=== PATIENT | female | born 1965 | race Caucasian/White ===

== ENCOUNTER 2021-08-28 15:30 | Emergency (ER) | payer MEDICAID ==
[~2021-08-28] VITALS: Ht 167.6 cm; Wt 104.5 kg
[~2021-08-28 15:30] MED LIST: METH4TAB PO; PENI500T2 PO
[2021-08-28] MEDS ORDERED: ondansetron/PF 4mg/2ml inj IV ONE (15:45)
[2021-08-28] MEDS ORDERED: normal saline 1000ML IV soln IVB ONE (15:45)
[2021-08-28] MEDS ORDERED: ALBUTEROL INHALER 1 PUFF/90 MCG INHALER IH PRN (15:45)
[2021-08-28 15:50] VITALS: BP 117/96
[2021-08-28 16:23] LABS: BASOPHILS % (AUTO) 0.4 % (0-1); EOSINOPHILS % (AUTO) 0 % (0-6); HEMATOCRIT 39.4 % (35.0-45.0); HEMOGLOBIN 13.5 g/dl (12.0-16.0); LYMPHOCYTES # (AUTO) 0.5 X10'3 (1.1-4.8); LYMPHOCYTES % (AUTO) 16.9 % (21-51); MEAN CORPUSCULAR HEMOGLOBIN 30.3 PG (27.0-31.0); MEAN CORPUSCULAR HGB CONC 34.3 g/dL (33.0-36.5); MEAN CORPUSCULAR VOLUME 88.2 FL (78-98); MEAN PLATELET VOLUME 8.4 FL (7.4-10.4); MONOCYTES # (AUTO) 0.1 X10'3 (0-0.9); MONOCYTES % (AUTO) 2.4 % (2-12); NEUTROPHILS # (AUTO) 2.6 X10'3 (1.8-7.7); NEUTROPHILS % (AUTO) 80.3 % (42-75); PLATELET COUNT 163 X10'3 (140-440); RED BLOOD COUNT 4.46 X10'6 (4.20-5.60); RED CELL DISTRIBUTION WIDTH 13.5 % (11.5-14.5); WHITE BLOOD COUNT 3.3 X10'3 (4.5-11.0)
[2021-08-28] MEDS ORDERED: dexamethasone sod phosphate 10mg/ml inj IV STA (16:26)
[2021-08-28 16:33] LABS: D-DIMER 1.46 MG/L FEU (0-0.50)
[2021-08-28 16:38] LABS: ALANINE AMINOTRANSFERASE 32 U/L (12-78); ALBUMIN 3.3 G/DL (3.4-5.0); ALBUMIN/GLOBULIN RATIO 0.8 (1.1-1.5); ALKALINE PHOSPHATASE 94 IU/L (46-116); ANION GAP 15 (8-16); ASPARTATE AMINO TRANSFERASE 106 U/L (10-37); BILIRUBIN,TOTAL 0.2 MG/DL (0.1-1.0); BLOOD UREA NITROGEN 32 MG/DL (7-18); BUN/CREATININE RATIO 23.9 (6.6-38.0); C-REACTIVE PROTEIN 9.75 MG/DL (0.0-0.5); CALCIUM 8.4 MG/DL (8.5-10.1); CHLORIDE 99 MMOL/L (99-107); CREATININE 1.34 MG/DL (0.40-0.90); GLUCOSE 119 MG/DL (70-104); POTASSIUM 3.4 MMOL/L (3.5-5.1); SODIUM 133 MMOL/L (135-145); TOTAL CARBON DIOXIDE 19.2 MMOL/L (24-32); TOTAL PROTEIN 7.5 G/DL (6.4-8.2); eGFR 41 ML/MIN
[2021-08-28] MEDS ORDERED: ketorolac trometh. 30mg/ml inj. IV ONE (16:45)
[2021-08-28 17:10] LABS: CLARITY,URINE SLIGHTLY CLOUDY (Clear); COLOR,URINE YELLOW (Yellow); GLUCOSE, URINE NEGATIVE (Neg); KETONES,URINE TRACE mg/dl (Neg); NITRITES, URINE NEGATIVE (Neg); OCCULT BLOOD,URINE MODERATE (Neg); PROTEIN,URINE 100 mg/dl (Neg); UA COLLECTION TYPE CLN CATCH MIDSTREAM
[2021-08-28 17:11] LABS: LEUKOCYTE ESTERASE ,URINE NEGATIVE (Neg); UROBILINOGEN,URINE 0.2 E.U/dL (0.2-1.0)
[2021-08-28 17:14] LABS: BACTERIA,URINE FEW /HPF (Neg); SQUAMOUS EPITHELIAL CELL,UR FEW /LPF (FEW)
[2021-08-28 17:15] LABS: AMORPHOUS URATES 1+; MUCUS STRANDS FEW /LPF (Neg)
[2021-08-28] MEDS ORDERED: ALBU6.7H9 INH ×2 (17:59)
[2021-08-28] MEDS ORDERED: DEXA6TAB6 PO ×2 (17:59)
[2021-08-28] MEDS ORDERED: AZIT500T PO ×2 (17:59)
[2021-08-28] MEDS ORDERED: BUDE180A INH ×2 (17:59)
--- NOTE | 2021-08-28 20:00 | NUR ---
pt discharged before nursing assessments done
== END 2021-08-28 20:00 | disposition home or self-care (01) ==
LOC: ER 15:32
DX: U07.1 COVID-19 (principal); J12.82 Pneumonia due to coronavirus disease 2019; J96.01 Acute respiratory failure with hypoxia; G89.29 Other chronic pain; Z79.2 Long term (current) use of antibiotics; Z79.899 Other long term (current) drug therapy; Z88.1 Allergy status to other antibiotic agents; Z88.8 Allergy status to other drugs, medicaments and biological substances
CPT/HCPCS: 36415; 71045; 80053; 81001; 84145; 85025; 85379; 86140; 87088; 87635; 96361; 96374; 96375; 99284; C9803; J1100; J1885; J2405; J7030

== ENCOUNTER 2021-08-30 11:32 | Inpatient (IN) | payer MEDICAID ==
[~2021-08-30] VITALS: Ht 167.6 cm; Wt 105.0 kg
[~2021-08-30 11:32] MED LIST changes: +ALBU6.7H9 INH; +AZIT500T PO; +BUDE180A INH; +DEXA6TAB6 PO
--- NOTE | 2021-08-30 12:13 | NUR ---
02 SAT 83-84% ON 2L/MIN NC. INCREASED 02 TO 4L/MIN NC. 02 SAT 85-86%. PT GOING TO ROOM 8
[2021-08-30 13:05] LABS: BASOPHILS % (AUTO) 0.1 % (0-1); EOSINOPHILS % (AUTO) 0 % (0-6); HEMOGLOBIN 13.7 g/dl (12.0-16.0); LYMPHOCYTES # (AUTO) 0.6 X10'3 (1.1-4.8); LYMPHOCYTES % (AUTO) 12.3 % (21-51); MEAN CORPUSCULAR HEMOGLOBIN 30.2 PG (27.0-31.0); MEAN CORPUSCULAR HGB CONC 34.4 g/dL (33.0-36.5); MEAN CORPUSCULAR VOLUME 87.8 FL (78-98); MEAN PLATELET VOLUME 8.2 FL (7.4-10.4); MONOCYTES # (AUTO) 0.3 X10'3 (0-0.9); NEUTROPHILS % (AUTO) 81.6 % (42-75); PLATELET COUNT 191 X10'3 (140-440); RED BLOOD COUNT 4.55 X10'6 (4.20-5.60); WHITE BLOOD COUNT 4.9 X10'3 (4.5-11.0)
[2021-08-30 13:15] LABS: D-DIMER 2.19 MG/L FEU (0-0.50)
[2021-08-30 13:21] LABS: ALANINE AMINOTRANSFERASE 247 U/L (12-78); ALBUMIN 3.3 G/DL (3.4-5.0); ALBUMIN/GLOBULIN RATIO 0.8 (1.1-1.5); ALKALINE PHOSPHATASE 117 IU/L (46-116); ANION GAP 14 (8-16); ASPARTATE AMINO TRANSFERASE 293 U/L (10-37); BILIRUBIN,TOTAL 0.2 MG/DL (0.1-1.0); BLOOD UREA NITROGEN 18 MG/DL (7-18); BUN/CREATININE RATIO 23.4 (6.6-38.0); CALCIUM 8.9 MG/DL (8.5-10.1); CHLORIDE 105 MMOL/L (99-107); CREATININE 0.77 MG/DL (0.40-0.90); GLUCOSE 138 MG/DL (70-104); POTASSIUM 3.9 MMOL/L (3.5-5.1); SODIUM 140 MMOL/L (135-145); TOTAL CARBON DIOXIDE 21.5 MMOL/L (24-32); TOTAL PROTEIN 7.4 G/DL (6.4-8.2); eGFR 78 ML/MIN
[2021-08-30] MEDS ORDERED: heparin 25,000 UNIT/250ml bag 250 ML IV SCH (13:25)
[2021-08-30] MEDS ORDERED: heparin 10,000 units/1 ML INJ IV PRN (13:25)
[2021-08-30] MEDS ORDERED: heparin 10,000 units/1 ML INJ IV ONE ×2 (13:25→13:35)
[2021-08-30] MEDS ORDERED: iohexol 350MG/ML 100ml bottle IV ONE (13:32)
[2021-08-30] MEDS ORDERED: DOCU-337 PO (13:59)
[2021-08-30] MEDS ORDERED: METH-797 PO (13:59)
[2021-08-30] MEDS ORDERED: OMEP-50 PO (13:59)
[2021-08-30] MEDS ORDERED: FEXO-62 PO (13:59)
[2021-08-30] MEDS ORDERED: IBUP-1985 PO (13:59)
[2021-08-30] MEDS ORDERED: acetaminophen 325mg tablet PO ONE (14:05)
[2021-08-30] MEDS ORDERED: dexamethasone sod phosphate 10mg/ml inj IV STA (14:23)
[2021-08-30] MEDS ORDERED: magnesium Cl slow-release 64mg tablet PO PRN (14:25)
[2021-08-30] MEDS ORDERED: magnesium hydroxide 30ml (MOM) UD suspension PO PRN (14:25)
[2021-08-30] MEDS ORDERED: potassium Cl 40MEQ/1/2NS 520ml 520 ML IV PRN ×2 (14:25)
[2021-08-30] MEDS ORDERED: CefTRIAXone/D5W-Rocephin 1gm 50 ML IV ONE (14:25)
[2021-08-30] MEDS ORDERED: azithromycin/NS 500mg/250ml 250 ML IV ONE (14:25)
[2021-08-30] MEDS ORDERED: metoclopramide 5 mg/ml inj IV PRN (14:25)
[2021-08-30] MEDS ORDERED: acetaminophen 325mg tablet PO PRN ×2 (14:25)
[2021-08-30] MEDS ORDERED: ondansetron/PF 4mg/2ml inj IV PRN (14:25)
[2021-08-30] MEDS ORDERED: mag hydrox/Alum hydrox/simeth 30ml oral suspension PO PRN (14:25)
[2021-08-30] MEDS ORDERED: ALBUTEROL INHALER 1 PUFF/90 MCG INHALER IH PRN (14:25)
[2021-08-30] MEDS ORDERED: potassium Cl 20 mEq SR tablet PO PRN ×2 (14:25)
[2021-08-30] MEDS ORDERED: magnesium 4gm in 100ml NS 100 ML IV PRN (14:25)
[2021-08-30] MEDS ORDERED: bisacodyl 10mg suppository rectal RC PRN (14:25)
[2021-08-30] MEDS ORDERED: magnesium 2GM in 50ml NS 50 ML IV PRN (14:25)
[2021-08-30 15:21] LABS: C-REACTIVE PROTEIN 1.21 MG/DL (0.0-0.5); LACTATE DEHYDROGENASE 1717 U/L (81-234)
[2021-08-30] MEDS ORDERED: REMDESIVIR INJ 200 MG in normal saline 100ml IV soln 60 ML IV ONE (15:45)
[2021-08-30] MEDS: normal saline 1000ml 1,000 ML IV SCH (15:47)
[2021-08-30] MEDS ORDERED: rocuronium 10mg/ml inj IV ONE (16:00)
--- NOTE | 2021-08-30 16:34 | NUR ---
I have received report from JANINE KONG IN ER and had the opportunity to ask questions. WILL AWAIT PTS ARRIVAL TO THE FLOOR.
--- NOTE | 2021-08-30 16:41 | NUR ---
SENT MESSAGE TO RESPIRATORY... 2305G...PT COMING UP FROM ER, ON 15L...CAN I GET A SALTER FOR THE ROOM PLEASE AND THANK YOU
--- NOTE | 2021-08-30 17:50 | NUR ---
PT ARRIVED FROM ER IN STABLE CONDITION
[2021-08-30 18:00] VITALS: BP 125/68
[2021-08-30] MEDS: guaiFENesin/DM 10ml UD oral syrup PO PRN (18:00)
--- NOTE | 2021-08-30 18:19 | NUR ---
IV FLUIDS NOT INFUSING DUE TO IV BEING IN R AC, PT KEEPS BENDING ARM. WILL HAVE NOC RN PLACE NEW IV AND RESTART ABX AND FLUID.
--- NOTE | 2021-08-30 18:57 | NUR ---
Problems reprioritized. Patient report given, questions answered & plan of care reviewed with JANINE BEARD.
--- NOTE | 2021-08-30 18:59 | NUR ---
Patient in room ORTHO 4012. I have received report from JANINE Skelton and had the opportunity to ask questions and assume patient care.
[2021-08-30] MEDS ORDERED: docusate sod 100mg capsule PO SCH (20:00)
[2021-08-30] MEDS: K and/or MAG REPLACEMENT MC SCH (20:00)
[2021-08-30 20:55] VITALS: BP 120/59
[2021-08-30] MEDS ORDERED: temazepam 15mg capsule PO PRN (21:00)
--- NOTE | 2021-08-30 21:00 | NUR ---
Patient was found on the floor by her nurse, Lily MEHTA. I called Dr. Smallwood to inform him of the fall and that her oxygen saturation had dropped to 56% without oxygen. I applied the 15liters high flow and then added a 15liter NRB mask because her oxygen saturation was hanging out around 75% and it slowly went up to 91% with both the HF and NRB mask on. I set the bed alarm on her bed and reinforced that she needed to call for help to the bsc and not to get out of bed on her own. There was no injury noted to her body and no open sores or abrasions, she was found on her knees by the bedside commode. She verbalized that [place] [facility] she just became weak and fell onto her knees. I asked the doctor for Toradol per her request for pain but he declined since she is on steroids and it would increase risk of gi bleed.
--- NOTE | 2021-08-30 21:00 | NUR ---
Patient was found on her knees on the floor next to the bedside commode, called charge nurse and with her assistance patient was transferred back to bed. Skin intact at this time, able to move all extremities without difficulty. Bed alarm in place now, bed in lowest position, side rails in place. Instructed patient to use call light for assistance. Dr Smallwood was made aware by charge nurse. Will continue to monitor, call light within reach.
--- NOTE | 2021-08-30 21:05 | NUR ---
ALSO HAS 15LITERS OF OXYGEN THROUGH NRB MASK ON Addendum: 08/30/21 at 2155 by Laya Rollins RN Amended: Links added.
[2021-08-30] MEDS: docusate sod 100mg capsule PO SCH (21:22)
[2021-08-30] MEDS: famotidine 20mg tablet PO SCH (21:23)
[2021-08-30] MEDS: cyclobenzaprine 10mg tablet PO SCH (21:23)
[2021-08-30] MEDS: enoxaparin 40mg/0.4ml syringe SUBCUT SCH (21:24)
[2021-08-30] MEDS: dexamethasone inj 6 MG in normal saline 50ml IV soln 50 ML IV SCH (21:24)
[2021-08-30] MEDS: HYDROmorphone inj. 0.5 MG/0.5 ML DISP.SYRIN IV PRN (21:25)
[2021-08-30 22:00] VITALS: BP 120/59
[2021-08-31] VITALS (7 sets, daily range): BP systolic 103–124; BP diastolic 51–73
[2021-08-31] MEDS: normal saline 1000ml 1,000 ML IV SCH (00:25)
--- NOTE | 2021-08-31 01:49 | NUR ---
Dr. Smallwood was called and notified that we are unable to get the last troponin that was ordered on patient, 3 nurses tried getting the blood without any success. He said to just have it done with am labs.
[2021-08-31] MEDS: guaiFENesin/DM 10ml UD oral syrup PO PRN ×5 (01:50→23:49)
--- NOTE | 2021-08-31 04:17 | NUR ---
Assisted patient in prone position to help her breathing, she was having low oxygen saturations with any movements and dropping down to the high 70's. Now she is 90-91% in prone position and on 15liters high flow and 15 liters nrb mask. I had her use the bedpan because she decompensates to much with activity and not safe to use the bsc at this time.
--- NOTE | 2021-08-31 06:35 | NUR ---
Problems reprioritized. Patient report given, questions answered & plan of care reviewed with JANINE Pérez.
[2021-08-31] MEDS ORDERED: REMDESIVIR INJ 100 MG in normal saline 100ml IV soln 80 ML IV SCH (08:00)
[2021-08-31] MEDS ORDERED: azithromycin/NS 500mg/250ml 250 ML IV SCH (08:00)
[2021-08-31] MEDS ORDERED: CefTRIAXone/D5W-Rocephin 1gm 50 ML IV SCH (08:00)
[2021-08-31] MEDS: K and/or MAG REPLACEMENT MC SCH ×2 (08:00→19:31)
[2021-08-31] MEDS: cyclobenzaprine 10mg tablet PO SCH ×3 (08:16→19:37)
[2021-08-31] MEDS: dexamethasone inj 6 MG in normal saline 50ml IV soln 50 ML IV SCH (08:16)
[2021-08-31] MEDS: pantoprazole 40mg Tablet.DR PO SCH (08:17)
[2021-08-31] MEDS: loratadine 10mg tablet PO SCH (08:17)
[2021-08-31] MEDS: famotidine 20mg tablet PO SCH ×2 (08:17→19:37)
[2021-08-31] MEDS: docusate sod 100mg capsule PO SCH ×2 (08:17→19:37)
[2021-08-31] MEDS: enoxaparin 40mg/0.4ml syringe SUBCUT SCH (08:18)
[2021-08-31 08:40] LABS: ALANINE AMINOTRANSFERASE 173 U/L (12-78); ALBUMIN 2.9 G/DL (3.4-5.0); ALBUMIN/GLOBULIN RATIO 0.8 (1.1-1.5); ALKALINE PHOSPHATASE 113 IU/L (46-116); ANION GAP 12 (8-16); ASPARTATE AMINO TRANSFERASE 152 U/L (10-37); BILIRUBIN,TOTAL 0.2 MG/DL (0.1-1.0); BLOOD UREA NITROGEN 14 MG/DL (7-18); BUN/CREATININE RATIO 17.9 (6.6-38.0); CALCIUM 8.3 MG/DL (8.5-10.1); CHLORIDE 108 MMOL/L (99-107); CREATININE 0.78 MG/DL (0.40-0.90); GLUCOSE 134 MG/DL (70-104); POTASSIUM 3.8 MMOL/L (3.5-5.1); SODIUM 141 MMOL/L (135-145); TOTAL CARBON DIOXIDE 21.3 MMOL/L (24-32); TOTAL PROTEIN 6.5 G/DL (6.4-8.2); eGFR 76 ML/MIN
[2021-08-31 08:42] LABS: BASOPHILS % (AUTO) 0.1 % (0-1); EOSINOPHILS % (AUTO) 0 % (0-6); HEMATOCRIT 37.4 % (35.0-45.0); HEMOGLOBIN 12.8 g/dl (12.0-16.0); LYMPHOCYTES # (AUTO) 0.5 X10'3 (1.1-4.8); LYMPHOCYTES % (AUTO) 9.4 % (21-51); MEAN CORPUSCULAR HEMOGLOBIN 30.4 PG (27.0-31.0); MEAN CORPUSCULAR HGB CONC 34.2 g/dL (33.0-36.5); MEAN CORPUSCULAR VOLUME 88.7 FL (78-98); MEAN PLATELET VOLUME 8.5 FL (7.4-10.4); MONOCYTES # (AUTO) 0.3 X10'3 (0-0.9); MONOCYTES % (AUTO) 6.3 % (2-12); NEUTROPHILS % (AUTO) 84.2 % (42-75); PLATELET COUNT 176 X10'3 (140-440); RED BLOOD COUNT 4.22 X10'6 (4.20-5.60); RED CELL DISTRIBUTION WIDTH 14.4 % (11.5-14.5); WHITE BLOOD COUNT 4.8 X10'3 (4.5-11.0)
[2021-08-31 08:56] LABS: C-REACTIVE PROTEIN 0.33 MG/DL (0.0-0.5); LACTATE DEHYDROGENASE 1369 U/L (81-234); MAGNESIUM 2.1 MG/DL (1.5-2.4); TROPONIN I 0.59 NG/ML (0.0-0.05)
[2021-08-31 12:33] LABS: D-DIMER 1.66 MG/L FEU (0-0.50); PARTIAL THROMBOPLASTIN TIME 26 SECONDS (22-32)
[2021-08-31] MEDS ORDERED: REMDESIVIR INJ 200 MG in normal saline 100ml IV soln 60 ML IV ONE (13:10)
[2021-08-31] MEDS: benzonatate 100mg capsule PO PRN ×2 (14:55→22:18)
--- NOTE | 2021-08-31 18:00 | NUR ---
also on 15 liters NRB mask Addendum: 08/31/21 at 1931 by Laya Rollins RN Amended: Links added.
[2021-08-31] MEDS: enoxaparin 60mg/0.6ml syringe SUBCUT SCH (19:36)
[2021-08-31] MEDS: HYDROcodone/acetaminophen 7.5MG/325MG per 15ml UD CUP PO PRN (19:37)
[2021-08-31] MEDS: lactobacillus rhamnosus 10,000 MMU CELLS/CAPSULE PO SCH (19:37)
[2021-09-01 02:00] VITALS: BP 102/69
[2021-09-01] MEDS: benzonatate 100mg capsule PO PRN ×3 (04:59→22:24)
[2021-09-01] MEDS: guaiFENesin/DM 10ml UD oral syrup PO PRN ×3 (04:59→18:46)
--- NOTE | 2021-09-01 06:24 | NUR ---
Patient in room ORTHO 4012. I have received report from JANINE Stone and had the opportunity to ask questions and assume patient care.
[2021-09-01 06:40] VITALS: BP 134/67
--- NOTE | 2021-09-01 06:41 | NUR ---
Patient in room ORTHO 4012. I have received report from Iva MEHTA and had the opportunity to ask questions and assume patient care.
[2021-09-01] MEDS: dexamethasone inj 6 MG in normal saline 50ml IV soln 50 ML IV SCH (07:05)
[2021-09-01] MEDS: cyclobenzaprine 10mg tablet PO SCH ×3 (07:05→19:49)
[2021-09-01] MEDS: REMDESIVIR INJ 100 MG in normal saline 100ml IV soln 80 ML IV SCH (07:05)
[2021-09-01] MEDS: CefTRIAXone 2gm/D5W 50ml BAG 50 ML IV SCH (07:05)
[2021-09-01] MEDS: enoxaparin 60mg/0.6ml syringe SUBCUT SCH ×2 (07:05→19:50)
[2021-09-01] MEDS: famotidine 20mg tablet PO SCH ×2 (07:05→19:50)
[2021-09-01] MEDS: loratadine 10mg tablet PO SCH (07:05)
[2021-09-01] MEDS: pantoprazole 40mg Tablet.DR PO SCH (07:05)
[2021-09-01] MEDS: lactobacillus rhamnosus 10,000 MMU CELLS/CAPSULE PO SCH ×2 (07:06→19:50)
[2021-09-01] MEDS: docusate sod 100mg capsule PO SCH ×2 (07:06→19:46)
[2021-09-01] MEDS: K and/or MAG REPLACEMENT MC SCH ×2 (08:00→19:45)
[2021-09-01 08:49] LABS: BASOPHILS % (AUTO) 0.1 % (0-1); EOSINOPHILS % (AUTO) 0 % (0-6); HEMATOCRIT 38.9 % (35.0-45.0); HEMOGLOBIN 13.4 g/dl (12.0-16.0); LYMPHOCYTES # (AUTO) 0.7 X10'3 (1.1-4.8); LYMPHOCYTES % (AUTO) 12.1 % (21-51); MEAN CORPUSCULAR HEMOGLOBIN 30.3 PG (27.0-31.0); MEAN CORPUSCULAR HGB CONC 34.4 g/dL (33.0-36.5); MEAN CORPUSCULAR VOLUME 88.1 FL (78-98); MEAN PLATELET VOLUME 7.9 FL (7.4-10.4); MONOCYTES # (AUTO) 0.5 X10'3 (0-0.9); MONOCYTES % (AUTO) 9.5 % (2-12); NEUTROPHILS # (AUTO) 4.3 X10'3 (1.8-7.7); NEUTROPHILS % (AUTO) 78.3 % (42-75); PLATELET COUNT 184 X10'3 (140-440); RED BLOOD COUNT 4.42 X10'6 (4.20-5.60); RED CELL DISTRIBUTION WIDTH 14.3 % (11.5-14.5); WHITE BLOOD COUNT 5.4 X10'3 (4.5-11.0)
[2021-09-01 09:06] LABS: D-DIMER 1.73 MG/L FEU (0-0.50); PARTIAL THROMBOPLASTIN TIME 25 SECONDS (22-32)
[2021-09-01 09:10] LABS: ALANINE AMINOTRANSFERASE 119 U/L (12-78); ALBUMIN 2.9 G/DL (3.4-5.0); ALBUMIN/GLOBULIN RATIO 0.8 (1.1-1.5); ALKALINE PHOSPHATASE 122 IU/L (46-116); ANION GAP 13 (8-16); ASPARTATE AMINO TRANSFERASE 85 U/L (10-37); BILIRUBIN,TOTAL 0.4 MG/DL (0.1-1.0); BLOOD UREA NITROGEN 11 MG/DL (7-18); BUN/CREATININE RATIO 14.7 (6.6-38.0); C-REACTIVE PROTEIN 0.06 MG/DL (0.0-0.5); CALCIUM 8.6 MG/DL (8.5-10.1); CHLORIDE 109 MMOL/L (99-107); CREATININE 0.75 MG/DL (0.40-0.90); GLUCOSE 114 MG/DL (70-104); MAGNESIUM 2.3 MG/DL (1.5-2.4); POTASSIUM 3.7 MMOL/L (3.5-5.1); SODIUM 144 MMOL/L (135-145); TOTAL CARBON DIOXIDE 22.5 MMOL/L (24-32); TOTAL PROTEIN 6.6 G/DL (6.4-8.2); eGFR 80 ML/MIN
[2021-09-01 09:14] LABS: LACTATE DEHYDROGENASE 1374 U/L (81-234)
--- NOTE | 2021-09-01 09:36 | NUR ---
Educated patient on importance of proning this morning. While doing AM med pass patient was assisted to the bedside commode and then into prone position.
[2021-09-01 11:33] VITALS: BP 114/63
[2021-09-01] MEDS: HYDROcodone/acetaminophen 7.5MG/325MG per 15ml UD CUP PO PRN ×2 (12:04→19:50)
[2021-09-01 15:03] VITALS: BP 139/76
--- NOTE | 2021-09-01 17:36 | NUR ---
PAGER ID: [phone] MESSAGE: [id number] Avni. Just FYI preliminary sputum culture is showing yeast, rare gram negative rods and rare gram positive cocci in pairs. [place] [id number]
[2021-09-01 18:00] VITALS: BP 126/65
--- NOTE | 2021-09-01 18:03 | NUR ---
Problems reprioritized. Patient report given, questions answered & plan of care reviewed with Iva MEHTA.
--- NOTE | 2021-09-01 18:15 | NUR ---
Patient in room ORTHO 4012. I have received report from JANINE Stone and had the opportunity to ask questions and assume patient care.
[2021-09-01 22:00] VITALS: BP 131/70
[2021-09-02] MEDS: guaiFENesin/DM 10ml UD oral syrup PO PRN ×5 (00:14→20:45)
[2021-09-02 02:00] VITALS: BP 130/59
[2021-09-02] MEDS: HYDROmorphone inj. 0.5 MG/0.5 ML DISP.SYRIN IV PRN ×2 (03:05→09:54)
[2021-09-02 06:00] VITALS: BP 113/68
--- NOTE | 2021-09-02 06:33 | NUR ---
Problems reprioritized. Patient report given, questions answered & plan of care reviewed with JANINE Ricks.
--- NOTE | 2021-09-02 06:34 | NUR ---
Patient in room ORTHO 4012B. I have received report from JANINE ARAGON and had the opportunity to ask questions and assume patient care.
[2021-09-02] MEDS: docusate sod 100mg capsule PO SCH ×2 (07:50→20:00)
[2021-09-02] MEDS: cyclobenzaprine 10mg tablet PO SCH ×3 (07:50→20:20)
[2021-09-02] MEDS: lactobacillus rhamnosus 10,000 MMU CELLS/CAPSULE PO SCH ×2 (07:50→20:20)
[2021-09-02] MEDS: loratadine 10mg tablet PO SCH (07:50)
[2021-09-02] MEDS: pantoprazole 40mg Tablet.DR PO SCH (07:50)
[2021-09-02] MEDS: dexamethasone inj 6 MG in normal saline 50ml IV soln 50 ML IV SCH (07:50)
[2021-09-02] MEDS: famotidine 20mg tablet PO SCH ×2 (07:50→20:19)
[2021-09-02] MEDS: enoxaparin 60mg/0.6ml syringe SUBCUT SCH (07:51)
[2021-09-02] MEDS: K and/or MAG REPLACEMENT MC SCH ×3 (08:00→20:23)
[2021-09-02 08:54] LABS: BASOPHILS % (AUTO) 0.1 % (0-1); EOSINOPHILS % (AUTO) 0.2 % (0-6); HEMATOCRIT 41.4 % (35.0-45.0); HEMOGLOBIN 14.1 g/dl (12.0-16.0); LYMPHOCYTES # (AUTO) 0.7 X10'3 (1.1-4.8); MEAN CORPUSCULAR HEMOGLOBIN 30.3 PG (27.0-31.0); MEAN CORPUSCULAR HGB CONC 34.1 g/dL (33.0-36.5); MEAN CORPUSCULAR VOLUME 88.9 FL (78-98); MEAN PLATELET VOLUME 8.2 FL (7.4-10.4); MONOCYTES # (AUTO) 0.4 X10'3 (0-0.9); MONOCYTES % (AUTO) 4.9 % (2-12); NEUTROPHILS # (AUTO) 6.1 X10'3 (1.8-7.7); NEUTROPHILS % (AUTO) 84.8 % (42-75); PLATELET COUNT 160 X10'3 (140-440); RED BLOOD COUNT 4.66 X10'6 (4.20-5.60); WHITE BLOOD COUNT 7.2 X10'3 (4.5-11.0)
[2021-09-02] MEDS: CefTRIAXone 2gm/D5W 50ml BAG 50 ML IV SCH (08:56)
[2021-09-02 09:01] LABS: ALANINE AMINOTRANSFERASE 99 U/L (12-78); ALBUMIN 2.9 G/DL (3.4-5.0); ALBUMIN/GLOBULIN RATIO 0.8 (1.1-1.5); ALKALINE PHOSPHATASE 123 IU/L (46-116); ANION GAP 12 (8-16); ASPARTATE AMINO TRANSFERASE 80 U/L (10-37); BILIRUBIN,TOTAL 0.5 MG/DL (0.1-1.0); BLOOD UREA NITROGEN 8 MG/DL (7-18); BUN/CREATININE RATIO 11.4 (6.6-38.0); C-REACTIVE PROTEIN 0.34 MG/DL (0.0-0.5); CALCIUM 8.7 MG/DL (8.5-10.1); CHLORIDE 106 MMOL/L (99-107); GLUCOSE 94 MG/DL (70-104); MAGNESIUM 2.4 MG/DL (1.5-2.4); SODIUM 142 MMOL/L (135-145); TOTAL CARBON DIOXIDE 23.6 MMOL/L (24-32); TOTAL PROTEIN 6.5 G/DL (6.4-8.2); eGFR 87 ML/MIN
[2021-09-02 09:02] LABS: LACTATE DEHYDROGENASE 1375 U/L (81-234); POTASSIUM 3.4 MMOL/L (3.5-5.1)
[2021-09-02 09:17] LABS: D-DIMER 5.67 MG/L FEU (0-0.50); PARTIAL THROMBOPLASTIN TIME 24 SECONDS (22-32)
[2021-09-02 10:00] VITALS: BP 134/56
[2021-09-02] MEDS: REMDESIVIR INJ 100 MG in normal saline 100ml IV soln 80 ML IV SCH (11:28)
[2021-09-02 11:38] LABS: NUCLEATED RED BLOOD CELLS 1 /100WBC (0-0); TOTAL CELLS COUNTED 100
[2021-09-02 11:44] LABS: PLATELET ESTIMATE NORMAL
[2021-09-02 14:00] VITALS: BP 110/56
[2021-09-02] MEDS: benzonatate 100mg capsule PO PRN (14:48)
--- NOTE | 2021-09-02 15:24 | NUR ---
Page Sent PAGER ID: [phone] MESSAGE: NARENDRA [phone] RE: ROHIT ONTIVEROS [id number] PT'S K+ WAS A LITTLE LOW TODAY, STARTED HER ON REPLACEMENT BUT ORDER HAS BEEN COMPLETED. CAN I REINSTATE REPLACEMENT ORDERS? THANKS!
[2021-09-02] MEDS ORDERED: potassium Cl 20 mEq SR tablet PO PRN (16:05)
[2021-09-02] MEDS ORDERED: magnesium Cl slow-release 64mg tablet PO PRN (16:05)
[2021-09-02] MEDS ORDERED: potassium Cl 40MEQ/1/2NS 520ml 520 ML IV PRN (16:05)
[2021-09-02] MEDS ORDERED: magnesium 4gm in 100ml NS 100 ML IV PRN (16:05)
[2021-09-02] MEDS: potassium Cl 20 mEq SR tablet PO PRN ×2 (16:38→20:43)
[2021-09-02 18:00] VITALS: BP 135/75
--- NOTE | 2021-09-02 18:41 | NUR ---
Problems reprioritized. Patient report given, questions answered & plan of care reviewed with JANINE TOBAR.
[2021-09-02] MEDS: enoxaparin 80mg/0.8ml syringe SUBCUT SCH (20:18)
[2021-09-02] MEDS: enoxaparin 30mg/0.3ml syringe SUBCUT SCH (20:19)
[2021-09-02 22:00] VITALS: BP 124/79
[2021-09-03] MEDS: benzonatate 100mg capsule PO PRN (01:56)
[2021-09-03] MEDS: HYDROcodone/acetaminophen 7.5MG/325MG per 15ml UD CUP PO PRN (01:57)
[2021-09-03 02:00] VITALS: BP 133/66
[2021-09-03 06:00] VITALS: BP 126/68
--- NOTE | 2021-09-03 06:14 | NUR ---
Patient in room ORTHO 4012B. I have received report from JANINE TOBAR and had the opportunity to ask questions and assume patient care.
[2021-09-03] MEDS: K and/or MAG REPLACEMENT MC SCH ×4 (08:00→20:00)
[2021-09-03] MEDS: REMDESIVIR INJ 100 MG in normal saline 100ml IV soln 80 ML IV SCH (08:00)
[2021-09-03] MEDS: cyclobenzaprine 10mg tablet PO SCH ×3 (08:29→20:29)
[2021-09-03] MEDS: dexamethasone inj 6 MG in normal saline 50ml IV soln 50 ML IV SCH (08:29)
[2021-09-03] MEDS: lactobacillus rhamnosus 10,000 MMU CELLS/CAPSULE PO SCH ×2 (08:30→20:29)
[2021-09-03] MEDS: enoxaparin 30mg/0.3ml syringe SUBCUT SCH ×2 (08:30→20:30)
[2021-09-03] MEDS: pantoprazole 40mg Tablet.DR PO SCH (08:30)
[2021-09-03] MEDS: guaiFENesin/DM 10ml UD oral syrup PO PRN (08:30)
[2021-09-03] MEDS: loratadine 10mg tablet PO SCH (08:30)
[2021-09-03] MEDS: famotidine 20mg tablet PO SCH ×2 (08:30→20:29)
[2021-09-03] MEDS: docusate sod 100mg capsule PO SCH ×2 (08:30→20:00)
[2021-09-03] MEDS: enoxaparin 80mg/0.8ml syringe SUBCUT SCH ×2 (08:31→20:30)
[2021-09-03 08:42] LABS: BASOPHILS % (AUTO) 0.1 % (0-1); EOSINOPHILS # (AUTO) 0.1 X10'3 (0-0.9); EOSINOPHILS % (AUTO) 1.3 % (0-6); HEMATOCRIT 40.4 % (35.0-45.0); HEMOGLOBIN 13.7 g/dl (12.0-16.0); LYMPHOCYTES # (AUTO) 0.5 X10'3 (1.1-4.8); LYMPHOCYTES % (AUTO) 6.3 % (21-51); MEAN CORPUSCULAR HGB CONC 33.8 g/dL (33.0-36.5); MEAN PLATELET VOLUME 8.8 FL (7.4-10.4); MONOCYTES # (AUTO) 0.2 X10'3 (0-0.9); NEUTROPHILS # (AUTO) 7.3 X10'3 (1.8-7.7); NEUTROPHILS % (AUTO) 89.3 % (42-75); PLATELET COUNT 152 X10'3 (140-440); RED BLOOD COUNT 4.55 X10'6 (4.20-5.60); RED CELL DISTRIBUTION WIDTH 13.7 % (11.5-14.5); WHITE BLOOD COUNT 8.2 X10'3 (4.5-11.0)
[2021-09-03 09:08] LABS: D-DIMER 8.63 MG/L FEU (0-0.50)
[2021-09-03] MEDS: CefTRIAXone 2gm/D5W 50ml BAG 50 ML IV SCH (09:15)
[2021-09-03 10:00] VITALS: BP 158/94
[2021-09-03 11:00] LABS: ABG BASE EXCESS -0.9 mmol/L (-2.0-2.0); ABG HCO3 20.6 mmol/L (22.0-26.0); ABG OXYGEN SATURATION 80.9 % (94-97); ABG PO2 (T) 41.7 mmHg (75.0-100.0); ALLEN'S TEST POSITIVE; FCOHb 1.2 % (0.0-3.9); FLOW 40 L/min; FO2Hb 79.9 % (94-97); PATIENT TEMPERATURE 37.4; TOTAL HEMOGLOBIN 14.8 G/dl (12.0-16.0)
--- NOTE | 2021-09-03 11:24 | NUR ---
Page Sent PAGER ID: [phone] MESSAGE: NARENDRA [phone] RE: ROHIT ONTIVEROS [id number] CALLED RAPID ON PT, HR IN 140S, DESATTING TO 60S-70S. RT IS IN ROOM NOW, PUTTING PT ON BIPAP. THANKS
[2021-09-03 11:36] LABS: ALANINE AMINOTRANSFERASE 93 U/L (12-78); ALBUMIN 2.7 G/DL (3.4-5.0); ALBUMIN/GLOBULIN RATIO 0.7 (1.1-1.5); ALKALINE PHOSPHATASE 133 IU/L (46-116); ANION GAP 9 (8-16); ASPARTATE AMINO TRANSFERASE 66 U/L (10-37); BILIRUBIN,TOTAL 0.6 MG/DL (0.1-1.0); BLOOD UREA NITROGEN 9 MG/DL (7-18); C-REACTIVE PROTEIN 4.73 MG/DL (0.0-0.5); CALCIUM 8.5 MG/DL (8.5-10.1); CHLORIDE 103 MMOL/L (99-107); CREATININE 0.75 MG/DL (0.40-0.90); GLUCOSE 119 MG/DL (70-104); LACTATE DEHYDROGENASE 1368 U/L (81-234); MAGNESIUM 1.9 MG/DL (1.5-2.4); POTASSIUM 3.2 MMOL/L (3.5-5.1); SODIUM 138 MMOL/L (135-145); TOTAL CARBON DIOXIDE 26.3 MMOL/L (24-32); TOTAL PROTEIN 6.7 G/DL (6.4-8.2); eGFR 80 ML/MIN
--- NOTE | 2021-09-03 13:12 | NUR ---
Page Sent PAGER ID: [phone] MESSAGE: NARENDRA [id number] RE: ROHIT ONTIVEROS [id number] PT IS REQUESTING TO BE PLACED ON VITAMIN C, D3, AND ZINC. THANK YOU!
--- NOTE | 2021-09-03 13:14 | NUR ---
Page Sent PAGER ID: [phone] MESSAGE: NARENDRA [phone] RE: ROHIT ONTIVEROS [id number] PT'S CHEST X-RAY REPORT IS ALSO AVAILABLE. REPORT DOES NOT SAY PE WAS FOUND. DO YOU STILL WANT TO START HER ON HEPARIN DRIP? THANKS!
--- NOTE | 2021-09-03 13:48 | NUR ---
Initial: Pt admit DX COVID-19 PNA, possible bacterial PNA, and acute respiratory failure w/ hypoxemia per EMR. PO 0% vs refusing most of regular diet past 4 days since admit not meeting needs. Noted pt on 60L HFNC w/ 100% FiO2 saturations in 90% per EMR; previously saturation in 80's per MD note. Respiratory status likely impacting PO ability though is able to take meds. LBM 09/02 receiving routine colace. IF poor PO intake persists may benefit from alternative nutrition to meet needs given respiratory status; tube feeds recs below. Will continue to monitor. Rec: 1. continue regular diet; encourage PO 2. IF poor PO persists; consider NG feeds to optimize nutrition status 3. IF TF; Vital AF at 65ml/hr goal; would provide 1560ml volume/day, 1872kcals, 1264ml water, and 117g protein. Adjust EN recs once scaled wt this admit 4. IF TF; additional water flush 100ml Q4H 5. IF TF; PALB Q /; daily wts 6. routine bowel care 7. scaled wt this admit; subsequent weekly wts Addendum: 09/03/21 at [address] Amended: Links added.
[2021-09-03 14:00] VITALS: BP 120/87
[2021-09-03 15:34] LABS: ABG BASE EXCESS 1.1 mmol/L (-2.0-2.0); ABG HCO3 23.8 mmol/L (22.0-26.0); ABG OXYGEN SATURATION 97.1 % (94-97); ABG PCO2 (T) 32.9 mmHg (32.0-45.0); ABG PO2 (T) 93.1 mmHg (75.0-100.0); ALLEN'S TEST POSITIVE; FMetHb 0.3 % (0.0-1.5); FO2Hb 95.8 % (94-97); PATIENT TEMPERATURE 37.4; TOTAL HEMOGLOBIN 14.1 G/dl (12.0-16.0)
[2021-09-03 18:00] VITALS: BP 106/71
--- NOTE | 2021-09-03 18:33 | NUR ---
Problems reprioritized. Patient report given, questions answered & plan of care reviewed with JANINE TOBAR.
[2021-09-03 22:00] VITALS: BP 144/71
[2021-09-04 02:00] VITALS: BP 151/80
--- NOTE | 2021-09-04 03:30 | NUR ---
Pt took off mask and tried to re-connect the parts. O2 desat to the 50s. Pt started convulsing. We sat her up in bed and put mask on and her O2 came up. Respiratory came up to assess and re-tutorial laboratory supervisor correctly.
[2021-09-04 06:00] VITALS: BP 126/72
--- NOTE | 2021-09-04 06:18 | NUR ---
Patient in room ORTHO 4012B. I have received report from JANINE TOBAR and had the opportunity to ask questions and assume patient care.
[2021-09-04 08:00] LABS: BASOPHILS % (AUTO) 0.1 % (0-1); EOSINOPHILS # (AUTO) 0.1 X10'3 (0-0.9); EOSINOPHILS % (AUTO) 0.8 % (0-6); HEMATOCRIT 40.7 % (35.0-45.0); HEMOGLOBIN 13.6 g/dl (12.0-16.0); LYMPHOCYTES # (AUTO) 0.3 X10'3 (1.1-4.8); LYMPHOCYTES % (AUTO) 3.4 % (21-51); MEAN CORPUSCULAR HGB CONC 33.4 g/dL (33.0-36.5); MEAN CORPUSCULAR VOLUME 89.7 FL (78-98); MONOCYTES # (AUTO) 0.3 X10'3 (0-0.9); MONOCYTES % (AUTO) 3.6 % (2-12); NEUTROPHILS # (AUTO) 8.5 X10'3 (1.8-7.7); NEUTROPHILS % (AUTO) 92.1 % (42-75); PLATELET COUNT 166 X10'3 (140-440); RED BLOOD COUNT 4.53 X10'6 (4.20-5.60); WHITE BLOOD COUNT 9.2 X10'3 (4.5-11.0)
[2021-09-04] MEDS: docusate sod 100mg capsule PO SCH ×2 (08:00→20:00)
[2021-09-04] MEDS: dexamethasone inj 6 MG in normal saline 50ml IV soln 50 ML IV SCH (08:00)
[2021-09-04] MEDS: K and/or MAG REPLACEMENT MC SCH ×3 (08:00→20:00)
[2021-09-04] MEDS: loratadine 10mg tablet PO SCH (08:00)
[2021-09-04] MEDS: famotidine 20mg tablet PO SCH ×2 (08:01→21:03)
[2021-09-04] MEDS: cyclobenzaprine 10mg tablet PO SCH ×3 (08:01→21:03)
[2021-09-04] MEDS: pantoprazole 40mg Tablet.DR PO SCH (08:01)
[2021-09-04] MEDS: enoxaparin 80mg/0.8ml syringe SUBCUT SCH ×2 (08:01→21:03)
[2021-09-04] MEDS: lactobacillus rhamnosus 10,000 MMU CELLS/CAPSULE PO SCH ×2 (08:01→21:03)
[2021-09-04] MEDS: enoxaparin 30mg/0.3ml syringe SUBCUT SCH ×2 (08:02→21:03)
[2021-09-04] MEDS: guaiFENesin/DM 10ml UD oral syrup PO PRN ×3 (08:03→21:07)
[2021-09-04 08:34] LABS: ALANINE AMINOTRANSFERASE 77 U/L (12-78); ALBUMIN 2.6 G/DL (3.4-5.0); ALBUMIN/GLOBULIN RATIO 0.6 (1.1-1.5); ALKALINE PHOSPHATASE 119 IU/L (46-116); ANION GAP 14 (8-16); ASPARTATE AMINO TRANSFERASE 53 U/L (10-37); BILIRUBIN,TOTAL 0.6 MG/DL (0.1-1.0); BLOOD UREA NITROGEN 9 MG/DL (7-18); BUN/CREATININE RATIO 13.4 (6.6-38.0); C-REACTIVE PROTEIN 9.97 MG/DL (0.0-0.5); CALCIUM 8.6 MG/DL (8.5-10.1); CHLORIDE 104 MMOL/L (99-107); CREATININE 0.67 MG/DL (0.40-0.90); GLUCOSE 110 MG/DL (70-104); LACTATE DEHYDROGENASE 1200 U/L (81-234); POTASSIUM 3.2 MMOL/L (3.5-5.1); SODIUM 141 MMOL/L (135-145); TOTAL CARBON DIOXIDE 23.5 MMOL/L (24-32); TOTAL PROTEIN 6.9 G/DL (6.4-8.2); eGFR > 90 ML/MIN
[2021-09-04 09:08] LABS: D-DIMER 7.09 MG/L FEU (0-0.50)
[2021-09-04] MEDS: CefTRIAXone 2gm/D5W 50ml BAG 50 ML IV SCH (09:26)
[2021-09-04 10:00] VITALS: BP 120/101
[2021-09-04] MEDS: REMDESIVIR INJ 100 MG in normal saline 100ml IV soln 80 ML IV SCH (10:37)
[2021-09-04] MEDS: potassium Cl 20 mEq SR tablet PO PRN ×2 (10:38→16:19)
[2021-09-04] MEDS: benzonatate 100mg capsule PO PRN (12:38)
[2021-09-04 14:00] VITALS: BP 124/81
--- NOTE | 2021-09-04 14:29 | NUR ---
Page Sent PAGER ID: [phone] MESSAGE: NARENDRA [phone] RE: ROHIT ONTIVEROS [id number] CAN I GET AN ORDER FOR ATIVAN? PT IS PANICKING AND TRYING TO TAKE OFF BIPAP, DESATTING. THANK YOU!
--- NOTE | 2021-09-04 14:38 | NUR ---
Page Sent PAGER ID: [phone] MESSAGE: NARENDRA [phone] RE: ROHIT ONTIVEROS [id number] CAN I GET AN ORDER FOR MORPHINE WELL TO HELP WITH BREATHING? HER PANIC ATTACK IS OVER AND SHE IS DOING MUCH BETTER. THANK YOU!
[2021-09-04] MEDS ORDERED: morphine 2 MG/ML inj. syringe IV PRN (14:50)
[2021-09-04] MEDS ORDERED: TOCILIZUMAB 80MG/4 ML INJ. 800 MG in normal saline 100ml IV soln 60 ML IV ONE (17:10)
[2021-09-04] MEDS: methylPREDNISolone sod succ/PF 40mg inj. IV SCH (17:21)
[2021-09-04 18:00] VITALS: BP 126/58
--- NOTE | 2021-09-04 18:32 | NUR ---
Problems reprioritized. Patient report given, questions answered & plan of care reviewed with JANINE LANDAVERDE.
--- NOTE | 2021-09-04 18:35 | NUR ---
Patient in room ORTHO 4012. I have received report from JANINE Ricks and had the opportunity to ask questions and assume patient care. Patient is sitting on side of bed with Bipap on, it looks like she attempted to eat dinner, but only took a few bites of her dessert. I will continue to monitor.
--- NOTE | 2021-09-04 19:00 | NUR ---
Patient had personal med/inhaler on bedside table and when asked if she had been using it she said yes. I advised her she could not use home meds and if she had any worsening SOB to let me know and I would call RT. I took inhaler and placed in personal med bin.
[2021-09-04 22:00] VITALS: BP 99/58
[2021-09-05] MEDS: methylPREDNISolone sod succ/PF 40mg inj. IV SCH ×4 (00:21→23:22)
[2021-09-05 02:00] VITALS: BP 96/51
--- NOTE | 2021-09-05 06:30 | NUR ---
Problems reprioritized. Patient report given, questions answered & plan of care reviewed with JANINE Dick.
[2021-09-05] MEDS: enoxaparin 30mg/0.3ml syringe SUBCUT SCH ×2 (07:18→19:41)
[2021-09-05] MEDS: famotidine 20mg tablet PO SCH ×2 (07:19→19:40)
[2021-09-05] MEDS: cyclobenzaprine 10mg tablet PO SCH ×3 (07:19→21:49)
[2021-09-05] MEDS: enoxaparin 80mg/0.8ml syringe SUBCUT SCH ×2 (07:19→19:41)
[2021-09-05] MEDS: CefTRIAXone 2gm/D5W 50ml BAG 50 ML IV SCH (07:20)
[2021-09-05] MEDS: lactobacillus rhamnosus 10,000 MMU CELLS/CAPSULE PO SCH ×2 (07:20→19:40)
[2021-09-05] MEDS: docusate sod 100mg capsule PO SCH ×2 (07:20→19:43)
[2021-09-05] MEDS: dexamethasone inj 6 MG in normal saline 50ml IV soln 50 ML IV SCH (07:21)
[2021-09-05] MEDS: pantoprazole 40mg Tablet.DR PO SCH (07:29)
[2021-09-05] MEDS: loratadine 10mg tablet PO SCH (07:30)
[2021-09-05 07:48] VITALS: BP 116/67
[2021-09-05] MEDS: K and/or MAG REPLACEMENT MC SCH ×2 (08:00→19:41)
[2021-09-05 09:31] LABS: C-REACTIVE PROTEIN 17.21 MG/DL (0.0-0.5); MAGNESIUM 2.5 MG/DL (1.5-2.4); POTASSIUM 3.9 MMOL/L (3.5-5.1)
[2021-09-05 09:47] LABS: D-DIMER 3.36 MG/L FEU (0-0.50)
[2021-09-05 11:09] VITALS: BP 116/78
[2021-09-05] MEDS: guaiFENesin/DM 10ml UD oral syrup PO PRN ×2 (16:27→23:22)
[2021-09-05 18:00] VITALS: BP 124/100
--- NOTE | 2021-09-05 18:49 | NUR ---
Patient in room ORTHO 4012. I have received report from Crissy MEHTA and had the opportunity to ask questions and assume patient care.
[2021-09-05 22:00] VITALS: BP 103/53
[2021-09-06 02:00] VITALS: BP 113/70
--- NOTE | 2021-09-06 06:27 | NUR ---
Problems reprioritized. Patient report given, questions answered & plan of care reviewed with Crissy MEHTA.
[2021-09-06] MEDS: K and/or MAG REPLACEMENT MC SCH ×2 (07:24→19:23)
[2021-09-06] MEDS: cyclobenzaprine 10mg tablet PO SCH ×3 (07:39→21:46)
[2021-09-06] MEDS: loratadine 10mg tablet PO SCH (07:39)
[2021-09-06] MEDS: famotidine 20mg tablet PO SCH ×2 (07:39→19:22)
[2021-09-06] MEDS: guaiFENesin/DM 10ml UD oral syrup PO PRN ×4 (07:39→21:48)
[2021-09-06] MEDS: lactobacillus rhamnosus 10,000 MMU CELLS/CAPSULE PO SCH ×2 (07:39→19:22)
[2021-09-06] MEDS: enoxaparin 30mg/0.3ml syringe SUBCUT SCH ×2 (07:39→19:22)
[2021-09-06] MEDS: pantoprazole 40mg Tablet.DR PO SCH (07:40)
[2021-09-06] MEDS: enoxaparin 80mg/0.8ml syringe SUBCUT SCH ×2 (07:40→19:22)
[2021-09-06] MEDS: methylPREDNISolone sod succ/PF 40mg inj. IV SCH ×3 (07:40→23:47)
[2021-09-06] MEDS: docusate sod 100mg capsule PO SCH ×2 (07:41→19:23)
--- NOTE | 2021-09-06 09:16 | NUR ---
Reassessment: Pt PO steadily improving more consistent PO ~25-50% avg regular diet past two days partially meeting needs. Noted pt currently on continuous bipap 100% FiO2 per EMR though feeling better yesterday per MD note. Given increased PO acceptance pt would benefit from Ensure Enlive TIDWM; MD notified. LBM 09/04 refusing routine colace per EMR. Will continue to monitor for additional nutrition intervention needs. Rec: 1. continue regular diet; encourage PO 2. Ensure Enlive TIDWM; pending MD verification in EMR 3. IF PO regresses given bipap dependence; consider NG feeds to optimize nutrition status. IF TF; Vital AF at 65ml/hr goal; would provide 1560ml volume/day, 1872kcals, 1264ml water, and 117g protein. Adjust EN recs once scaled wt this admit 4. routine bowel care 5. scaled wt this admit; subsequent weekly wts Addendum: 09/06/21 at [address] Amended: Links added.
[2021-09-06 09:33] LABS: C-REACTIVE PROTEIN 5.85 MG/DL (0.0-0.5); MAGNESIUM 2.6 MG/DL (1.5-2.4)
[2021-09-06 09:36] LABS: POTASSIUM 4.1 MMOL/L (3.5-5.1)
[2021-09-06 10:00] VITALS: BP 133/83
[2021-09-06] MEDS: lactose-reduced food (Ensure Enlive) - 237ml bottle PO SCH ×2 (13:00→18:00)
[2021-09-06 14:00] VITALS: BP 137/87
[2021-09-06] MEDS: benzonatate 100mg capsule PO PRN (16:35)
[2021-09-06 18:00] VITALS: BP 90/65
--- NOTE | 2021-09-06 18:20 | NUR ---
Patient in room ORTHO 4012. I have received report from Crissy MEHTA and had the opportunity to ask questions and assume patient care.
[2021-09-06 22:00] VITALS: BP 130/69
[2021-09-07 02:00] VITALS: BP 118/78
--- NOTE | 2021-09-07 06:25 | NUR ---
Problems reprioritized. Patient report given, questions answered & plan of care reviewed with Crissy MEHTA.
[2021-09-07] MEDS: famotidine 20mg tablet PO SCH ×2 (07:40→19:29)
[2021-09-07] MEDS: cyclobenzaprine 10mg tablet PO SCH ×3 (07:40→21:27)
[2021-09-07] MEDS: enoxaparin 80mg/0.8ml syringe SUBCUT SCH ×2 (07:41→19:30)
[2021-09-07] MEDS: lactobacillus rhamnosus 10,000 MMU CELLS/CAPSULE PO SCH ×2 (07:41→19:29)
[2021-09-07] MEDS: loratadine 10mg tablet PO SCH (07:41)
[2021-09-07] MEDS: methylPREDNISolone sod succ/PF 40mg inj. IV SCH ×2 (07:41→17:31)
[2021-09-07] MEDS: enoxaparin 30mg/0.3ml syringe SUBCUT SCH ×2 (07:42→19:29)
[2021-09-07] MEDS: benzonatate 100mg capsule PO PRN (07:47)
[2021-09-07] MEDS: guaiFENesin/DM 10ml UD oral syrup PO PRN (07:47)
[2021-09-07] MEDS: lactose-reduced food (Ensure Enlive) - 237ml bottle PO SCH ×3 (08:00→18:00)
[2021-09-07 08:34] LABS: C-REACTIVE PROTEIN 2.14 MG/DL (0.0-0.5); POTASSIUM 4.1 MMOL/L (3.5-5.1)
[2021-09-07] MEDS: docusate sod 100mg capsule PO SCH ×2 (09:00→19:30)
[2021-09-07] MEDS: pantoprazole 40mg Tablet.DR PO SCH (09:00)
[2021-09-07] MEDS: K and/or MAG REPLACEMENT MC SCH ×2 (09:41→19:30)
[2021-09-07 10:00] VITALS: BP 110/100
[2021-09-07 10:59] LABS: D-DIMER 4.82 MG/L FEU (0-0.50)
[2021-09-07 14:00] VITALS: BP 108/79
[2021-09-07 18:00] VITALS: BP 141/105
--- NOTE | 2021-09-07 18:40 | NUR ---
Patient in room ORTHO 4012. I have received report from Crissy MEHTA and had the opportunity to ask questions and assume patient care.
--- NOTE | 2021-09-07 19:20 | NUR ---
Patient has been attempting to use the high flow while eating. Switched patient from bipap to high flow tower and patient's oxygen saturation dropped to 50's. Bipap replaced and patient came back up to low 90's.
[2021-09-07] MEDS: guaiFENesin 100mg/DM 10mg oral syrup 5 ML CUP PO PRN (21:27)
[2021-09-07 22:00] VITALS: BP 133/87
[2021-09-08] MEDS: methylPREDNISolone sod succ/PF 40mg inj. IV SCH ×3 (00:10→16:00)
[2021-09-08 02:00] VITALS: BP 118/75
--- NOTE | 2021-09-08 06:25 | NUR ---
Problems reprioritized. Patient report given, questions answered & plan of care reviewed with Crissy MEHTA.
[2021-09-08 08:09] LABS: BASOPHILS % (AUTO) 0.1 % (0-1); EOSINOPHILS % (AUTO) 0.2 % (0-6); HEMATOCRIT 44.1 % (35.0-45.0); HEMOGLOBIN 14.5 g/dl (12.0-16.0); LYMPHOCYTES # (AUTO) 0.3 X10'3 (1.1-4.8); MEAN CORPUSCULAR HEMOGLOBIN 29.6 PG (27.0-31.0); MEAN CORPUSCULAR HGB CONC 32.9 g/dL (33.0-36.5); MEAN CORPUSCULAR VOLUME 89.9 FL (78-98); MONOCYTES # (AUTO) 0.3 X10'3 (0-0.9); MONOCYTES % (AUTO) 4.4 % (2-12); NEUTROPHILS # (AUTO) 7.1 X10'3 (1.8-7.7); NEUTROPHILS % (AUTO) 91.3 % (42-75); PLATELET COUNT 272 X10'3 (140-440); RED BLOOD COUNT 4.91 X10'6 (4.20-5.60); WHITE BLOOD COUNT 7.8 X10'3 (4.5-11.0)
[2021-09-08 08:39] LABS: D-DIMER 7.07 MG/L FEU (0-0.50)
[2021-09-08] MEDS: cyclobenzaprine 10mg tablet PO SCH ×3 (08:41→20:23)
[2021-09-08] MEDS: benzonatate 100mg capsule PO PRN ×2 (08:41→16:27)
[2021-09-08] MEDS: guaiFENesin 100mg/DM 10mg oral syrup 5 ML CUP PO PRN ×3 (08:41→20:44)
[2021-09-08] MEDS: loratadine 10mg tablet PO SCH (08:41)
[2021-09-08] MEDS: lactobacillus rhamnosus 10,000 MMU CELLS/CAPSULE PO SCH ×2 (08:41→20:24)
[2021-09-08] MEDS: famotidine 20mg tablet PO SCH ×2 (08:41→20:23)
[2021-09-08] MEDS: enoxaparin 80mg/0.8ml syringe SUBCUT SCH ×2 (08:43→20:22)
[2021-09-08] MEDS: lactose-reduced food (Ensure Enlive) - 237ml bottle PO SCH ×3 (08:44→16:01)
[2021-09-08] MEDS: enoxaparin 30mg/0.3ml syringe SUBCUT SCH ×2 (08:44→20:23)
[2021-09-08] MEDS: pantoprazole 40mg Tablet.DR PO SCH (08:44)
[2021-09-08 08:50] LABS: ALANINE AMINOTRANSFERASE 41 U/L (12-78); ALBUMIN 2.7 G/DL (3.4-5.0); ALBUMIN/GLOBULIN RATIO 0.6 (1.1-1.5); ALKALINE PHOSPHATASE 91 IU/L (46-116); ANION GAP 11 (8-16); ASPARTATE AMINO TRANSFERASE 36 U/L (10-37); BILIRUBIN,TOTAL 0.3 MG/DL (0.1-1.0); BLOOD UREA NITROGEN 13 MG/DL (7-18); BUN/CREATININE RATIO 17.3 (6.6-38.0); C-REACTIVE PROTEIN 0.89 MG/DL (0.0-0.5); CALCIUM 8.4 MG/DL (8.5-10.1); CHLORIDE 104 MMOL/L (99-107); CREATININE 0.75 MG/DL (0.40-0.90); GLUCOSE 112 MG/DL (70-104); LACTATE DEHYDROGENASE 1080 U/L (81-234); POTASSIUM 4.3 MMOL/L (3.5-5.1); SODIUM 141 MMOL/L (135-145); TOTAL CARBON DIOXIDE 26.2 MMOL/L (24-32); TOTAL PROTEIN 7.3 G/DL (6.4-8.2); eGFR 80 ML/MIN
[2021-09-08] MEDS: docusate sod 100mg capsule PO SCH ×2 (09:00→20:24)
[2021-09-08 09:03] LABS: PLATELET ESTIMATE NORMAL; TOTAL CELLS COUNTED 100
[2021-09-08] MEDS: K and/or MAG REPLACEMENT MC SCH ×2 (09:40→20:00)
[2021-09-08 10:37] VITALS: BP 129/97
[2021-09-08 16:15] VITALS: BP 116/83
[2021-09-08 19:00] VITALS: BP 112/87
[2021-09-08] MEDS: LORazepam 2 mg/ml vial IV PRN (20:44)
[2021-09-08 22:00] VITALS: BP 116/84
[2021-09-09] MEDS: methylPREDNISolone sod succ/PF 40mg inj. IV SCH ×3 (00:30→17:08)
[2021-09-09 02:00] VITALS: BP 101/59
[2021-09-09] MEDS: guaiFENesin 100mg/DM 10mg oral syrup 5 ML CUP PO PRN ×3 (02:44→20:34)
--- NOTE | 2021-09-09 02:59 | NUR ---
While rounding patient was drinking fluid. [place] patient's coughing and went back to the room and noted CPAP mask upside down, patient sat between 38-40. Call for help and hold the CPAP mask on patient's face, and sat 87-88. Help arrived and fixed CPAP mask. Patient sat 91-93. Encouraged patient to keep mask on and to spit on the cup for sputum culture. Will continue to monitor.
[2021-09-09 06:00] VITALS: BP 123/88
[2021-09-09] MEDS: lactose-reduced food (Ensure Enlive) - 237ml bottle PO SCH ×3 (07:30→18:00)
[2021-09-09] MEDS: K and/or MAG REPLACEMENT MC SCH ×2 (08:00→20:00)
[2021-09-09] MEDS: docusate sod 100mg capsule PO SCH ×2 (08:00→20:30)
[2021-09-09 08:07] LABS: BASOPHILS % (AUTO) 0.2 % (0-1); EOSINOPHILS % (AUTO) 0.1 % (0-6); HEMATOCRIT 41.5 % (35.0-45.0); HEMOGLOBIN 14.2 g/dl (12.0-16.0); LYMPHOCYTES # (AUTO) 0.4 X10'3 (1.1-4.8); MEAN CORPUSCULAR HEMOGLOBIN 30.3 PG (27.0-31.0); MEAN CORPUSCULAR HGB CONC 34.1 g/dL (33.0-36.5); MEAN CORPUSCULAR VOLUME 88.8 FL (78-98); MEAN PLATELET VOLUME 9.7 FL (7.4-10.4); MONOCYTES # (AUTO) 0.3 X10'3 (0-0.9); NEUTROPHILS # (AUTO) 7.6 X10'3 (1.8-7.7); NEUTROPHILS % (AUTO) 90.7 % (42-75); PLATELET COUNT 255 X10'3 (140-440); RED BLOOD COUNT 4.68 X10'6 (4.20-5.60); RED CELL DISTRIBUTION WIDTH 13.9 % (11.5-14.5); WHITE BLOOD COUNT 8.3 X10'3 (4.5-11.0)
[2021-09-09 08:15] LABS: ALANINE AMINOTRANSFERASE 47 U/L (12-78); ALBUMIN 2.6 G/DL (3.4-5.0); ALBUMIN/GLOBULIN RATIO 0.6 (1.1-1.5); ALKALINE PHOSPHATASE 73 IU/L (46-116); ANION GAP 8 (8-16); ASPARTATE AMINO TRANSFERASE 41 U/L (10-37); BILIRUBIN,TOTAL 0.3 MG/DL (0.1-1.0); BLOOD UREA NITROGEN 14 MG/DL (7-18); BUN/CREATININE RATIO 18.7 (6.6-38.0); C-REACTIVE PROTEIN 0.44 MG/DL (0.0-0.5); CALCIUM 8.5 MG/DL (8.5-10.1); CHLORIDE 103 MMOL/L (99-107); CREATININE 0.75 MG/DL (0.40-0.90); GLUCOSE 115 MG/DL (70-104); LACTATE DEHYDROGENASE 924 U/L (81-234); POTASSIUM 3.8 MMOL/L (3.5-5.1); SODIUM 139 MMOL/L (135-145); TOTAL CARBON DIOXIDE 27.9 MMOL/L (24-32); TOTAL PROTEIN 6.9 G/DL (6.4-8.2); eGFR 80 ML/MIN
--- NOTE | 2021-09-09 08:42 | NUR ---
Reassessment: Pt remains on BiPAP though PO has improved. Pt mostly consumed 50% of meals since 09/05 and 100% of last two meals on Regular diet. Pt also consumed 87% x 4 ONS. Pt likely meeting nutrient needs w/ recent PO intake. LBM 09/07 receiving routine colace. No new nutrition intervention implemented at this time. Rec: 1. continue regular diet; encourage PO 2. Ensure Enlive TIDWM 3. IF PO regresses given bipap dependence; consider NG feeds to optimize nutrition status. IF TF; Vital AF at 65ml/hr goal; would provide 1560ml volume/day, 1872kcals, 1264ml water, and 117g protein. Adjust EN recs once scaled wt this admit 4. routine bowel care 5. scaled wt this admit; subsequent weekly wts Addendum: 09/09/21 at [address] Amended: Links added.
[2021-09-09 10:00] VITALS: BP 96/61
[2021-09-09] MEDS: loratadine 10mg tablet PO SCH (10:19)
[2021-09-09] MEDS: enoxaparin 80mg/0.8ml syringe SUBCUT SCH ×2 (10:20→20:30)
[2021-09-09] MEDS: cyclobenzaprine 10mg tablet PO SCH ×3 (10:20→20:29)
[2021-09-09] MEDS: pantoprazole 40mg Tablet.DR PO SCH (10:20)
[2021-09-09] MEDS: famotidine 20mg tablet PO SCH ×2 (10:20→20:30)
[2021-09-09] MEDS: lactobacillus rhamnosus 10,000 MMU CELLS/CAPSULE PO SCH ×2 (10:20→20:42)
[2021-09-09] MEDS: enoxaparin 30mg/0.3ml syringe SUBCUT SCH ×2 (10:21→20:31)
[2021-09-09 14:00] VITALS: BP 104/56
[2021-09-09 18:00] VITALS: BP 115/80
[2021-09-09] MEDS ORDERED: BUDESONIDE 180 MCG AER.POW.BA INH SCH (20:00)
[2021-09-09] MEDS: benzonatate 100mg capsule PO PRN (20:34)
[2021-09-09] MEDS: LORazepam 2 mg/ml vial IV PRN (21:40)
[2021-09-09 22:00] VITALS: BP 116/68
[2021-09-10] MEDS: methylPREDNISolone sod succ/PF 40mg inj. IV SCH ×3 (00:06→20:39)
[2021-09-10 02:00] VITALS: BP 104/70
[2021-09-10] MEDS: LORazepam 2 mg/ml vial IV PRN (02:05)
[2021-09-10 06:00] VITALS: BP 102/76
--- NOTE | 2021-09-10 06:29 | NUR ---
Problems reprioritized. Patient report given, questions answered & plan of care reviewed with JANINE calderon.
[2021-09-10] MEDS: budesonide 0.5mg/2ml UD nebule IH SCH ×2 (07:33→20:05)
[2021-09-10 07:37] LABS: BASOPHILS % (AUTO) 0.1 % (0-1); EOSINOPHILS % (AUTO) 0 % (0-6); HEMATOCRIT 46.6 % (35.0-45.0); HEMOGLOBIN 15.5 g/dl (12.0-16.0); LYMPHOCYTES # (AUTO) 0.6 X10'3 (1.1-4.8); MEAN CORPUSCULAR HEMOGLOBIN 30.1 PG (27.0-31.0); MEAN CORPUSCULAR HGB CONC 33.3 g/dL (33.0-36.5); MEAN CORPUSCULAR VOLUME 90.5 FL (78-98); MEAN PLATELET VOLUME 9.8 FL (7.4-10.4); MONOCYTES # (AUTO) 0.4 X10'3 (0-0.9); MONOCYTES % (AUTO) 3.4 % (2-12); NEUTROPHILS # (AUTO) 9.7 X10'3 (1.8-7.7); NEUTROPHILS % (AUTO) 90.5 % (42-75); PLATELET COUNT 289 X10'3 (140-440); RED BLOOD COUNT 5.15 X10'6 (4.20-5.60); RED CELL DISTRIBUTION WIDTH 13.9 % (11.5-14.5); WHITE BLOOD COUNT 10.7 X10'3 (4.5-11.0)
[2021-09-10 07:58] LABS: ALANINE AMINOTRANSFERASE 68 U/L (12-78); ALBUMIN/GLOBULIN RATIO 0.7 (1.1-1.5); ALKALINE PHOSPHATASE 79 IU/L (46-116); ANION GAP 9 (8-16); ASPARTATE AMINO TRANSFERASE 40 U/L (10-37); BILIRUBIN,TOTAL 0.4 MG/DL (0.1-1.0); BLOOD UREA NITROGEN 17 MG/DL (7-18); BUN/CREATININE RATIO 21.3 (6.6-38.0); C-REACTIVE PROTEIN 0.42 MG/DL (0.0-0.5); CALCIUM 9.1 MG/DL (8.5-10.1); CHLORIDE 101 MMOL/L (99-107); LACTATE DEHYDROGENASE 979 U/L (81-234); POTASSIUM 4.2 MMOL/L (3.5-5.1); SODIUM 140 MMOL/L (135-145); TOTAL CARBON DIOXIDE 30.3 MMOL/L (24-32); TOTAL PROTEIN 7.6 G/DL (6.4-8.2); eGFR 74 ML/MIN
[2021-09-10] MEDS: K and/or MAG REPLACEMENT MC SCH ×2 (08:00→20:00)
[2021-09-10] MEDS: docusate sod 100mg capsule PO SCH ×2 (08:00→20:00)
[2021-09-10] MEDS: lactose-reduced food (Ensure Enlive) - 237ml bottle PO SCH ×3 (08:00→18:44)
[2021-09-10 08:01] LABS: D-DIMER 4.56 MG/L FEU (0-0.50)
[2021-09-10 08:02] LABS: GLUCOSE 122 MG/DL (70-104)
[2021-09-10] MEDS: enoxaparin 80mg/0.8ml syringe SUBCUT SCH ×2 (09:40→20:38)
[2021-09-10] MEDS: enoxaparin 30mg/0.3ml syringe SUBCUT SCH ×2 (09:40→20:37)
[2021-09-10] MEDS: loratadine 10mg tablet PO SCH (09:41)
[2021-09-10] MEDS: pantoprazole 40mg Tablet.DR PO SCH (09:41)
[2021-09-10] MEDS: lactobacillus rhamnosus 10,000 MMU CELLS/CAPSULE PO SCH ×2 (09:41→20:38)
[2021-09-10] MEDS: famotidine 20mg tablet PO SCH ×2 (09:41→20:38)
[2021-09-10] MEDS: cyclobenzaprine 10mg tablet PO SCH ×3 (09:41→20:36)
[2021-09-10 10:00] VITALS: BP 104/83
[2021-09-10 10:39] LABS: TOTAL CELLS COUNTED 100
[2021-09-10 10:40] LABS: PLATELET ESTIMATE NORMAL; POLYCHROMASIA 1+; SCHISTOCYTES FEW; STOMATOCYTES FEW
[2021-09-10] MEDS ORDERED: albuterol 2.5 MG/3 ML nebule NEB PRN (10:50)
[2021-09-10 14:00] VITALS: BP 117/87
[2021-09-10] MEDS: ipratropium/albuterol 3ml nebule NEB SCH ×2 (15:05→20:05)
[2021-09-10 18:00] VITALS: BP 124/88
[2021-09-10 22:00] VITALS: BP 130/88
[2021-09-10] MEDS ORDERED: guaiFENesin/DM 10ml UD oral syrup PO PRN (22:05)
[2021-09-11 02:00] VITALS: BP 123/86
[2021-09-11] MEDS: ipratropium/albuterol 3ml nebule NEB SCH ×4 (02:59→20:05)
[2021-09-11 06:00] VITALS: BP 109/73
--- NOTE | 2021-09-11 06:34 | NUR ---
Patient in room ORTHO 4012B. I have received report from JANINE TOBAR and had the opportunity to ask questions and assume patient care.
[2021-09-11 07:52] LABS: BASOPHILS % (AUTO) 0.2 % (0-1); EOSINOPHILS % (AUTO) 0.1 % (0-6); HEMATOCRIT 46.6 % (35.0-45.0); HEMOGLOBIN 15.3 g/dl (12.0-16.0); LYMPHOCYTES # (AUTO) 0.6 X10'3 (1.1-4.8); LYMPHOCYTES % (AUTO) 6.6 % (21-51); MEAN CORPUSCULAR HEMOGLOBIN 29.7 PG (27.0-31.0); MEAN CORPUSCULAR HGB CONC 32.9 g/dL (33.0-36.5); MEAN CORPUSCULAR VOLUME 90.4 FL (78-98); MONOCYTES # (AUTO) 0.2 X10'3 (0-0.9); MONOCYTES % (AUTO) 2.6 % (2-12); NEUTROPHILS # (AUTO) 8.6 X10'3 (1.8-7.7); NEUTROPHILS % (AUTO) 90.5 % (42-75); PLATELET COUNT 280 X10'3 (140-440); RED BLOOD COUNT 5.15 X10'6 (4.20-5.60); RED CELL DISTRIBUTION WIDTH 14.3 % (11.5-14.5); WHITE BLOOD COUNT 9.5 X10'3 (4.5-11.0)
[2021-09-11] MEDS: docusate sod 100mg capsule PO SCH ×2 (08:00→20:00)
[2021-09-11] MEDS: lactose-reduced food (Ensure Enlive) - 237ml bottle PO SCH ×3 (08:00→18:21)
[2021-09-11] MEDS: K and/or MAG REPLACEMENT MC SCH ×2 (08:00→20:00)
[2021-09-11 08:18] LABS: ALANINE AMINOTRANSFERASE 73 U/L (12-78); ALBUMIN/GLOBULIN RATIO 0.7 (1.1-1.5); ALKALINE PHOSPHATASE 76 IU/L (46-116); ANION GAP 6 (8-16); ASPARTATE AMINO TRANSFERASE 35 U/L (10-37); BILIRUBIN,TOTAL 0.4 MG/DL (0.1-1.0); BLOOD UREA NITROGEN 17 MG/DL (7-18); BUN/CREATININE RATIO 20.2 (6.6-38.0); C-REACTIVE PROTEIN 0.38 MG/DL (0.0-0.5); CALCIUM 9.2 MG/DL (8.5-10.1); CHLORIDE 96 MMOL/L (99-107); CREATININE 0.84 MG/DL (0.40-0.90); LACTATE DEHYDROGENASE 934 U/L (81-234); POTASSIUM 3.9 MMOL/L (3.5-5.1); SODIUM 134 MMOL/L (135-145); TOTAL CARBON DIOXIDE 32.2 MMOL/L (24-32); TOTAL PROTEIN 7.5 G/DL (6.4-8.2); eGFR 70 ML/MIN
[2021-09-11 08:37] LABS: GLUCOSE 114 MG/DL (70-104)
[2021-09-11] MEDS: loratadine 10mg tablet PO SCH (09:10)
[2021-09-11] MEDS: enoxaparin 80mg/0.8ml syringe SUBCUT SCH ×2 (09:11→20:24)
[2021-09-11] MEDS: famotidine 20mg tablet PO SCH ×2 (09:11→20:25)
[2021-09-11] MEDS: lactobacillus rhamnosus 10,000 MMU CELLS/CAPSULE PO SCH ×2 (09:11→20:25)
[2021-09-11] MEDS: pantoprazole 40mg Tablet.DR PO SCH (09:11)
[2021-09-11] MEDS: methylPREDNISolone sod succ/PF 40mg inj. IV SCH ×2 (09:11→20:25)
[2021-09-11] MEDS: cyclobenzaprine 10mg tablet PO SCH ×3 (09:11→20:25)
[2021-09-11] MEDS: enoxaparin 30mg/0.3ml syringe SUBCUT SCH ×2 (09:12→20:24)
[2021-09-11 09:39] LABS: D-DIMER 4.17 MG/L FEU (0-0.50)
[2021-09-11 09:59] LABS: PLATELET ESTIMATE NORMAL; TOTAL CELLS COUNTED 100
[2021-09-11 10:00] VITALS: BP 130/91
--- NOTE | 2021-09-11 10:01 | NUR ---
Page Sent PAGER ID: [phone] MESSAGE: NARENDRA [phone] RE: WESTON ROHIT [id number] CAN I GET AN ORDER FOR MORPHINE FOR AIR HUNGER? PT IS SAYING SHE CANNOT BREATHE, BUT SATTING AT ABOUT 86%, ON THE VERGE OF A PANIC ATTACK. THANK YOU!
[2021-09-11] MEDS ORDERED: morphine 10mg/0.5ml (conc. morphine) oral syringe PO PRN (10:05)
[2021-09-11] MEDS: budesonide 0.5mg/2ml UD nebule IH SCH ×2 (10:30→20:05)
[2021-09-11 14:00] VITALS: BP 109/73
[2021-09-11 18:00] VITALS: BP 102/70
--- NOTE | 2021-09-11 18:26 | NUR ---
Problems reprioritized. Patient report given, questions answered & plan of care reviewed with JANINE TOBAR.
[2021-09-11 22:00] VITALS: BP 114/70
[2021-09-12 02:00] VITALS: BP 150/84
[2021-09-12] MEDS: ipratropium/albuterol 3ml nebule NEB SCH ×4 (03:47→21:27)
--- NOTE | 2021-09-12 04:30 | NUR ---
Pt noted right lower leg has tender/hard/swollen area. Dr Flores was notified. Vascular U/S ordered.
[2021-09-12 06:00] VITALS: BP 129/78
[2021-09-12] MEDS: lactose-reduced food (Ensure Enlive) - 237ml bottle PO SCH ×3 (07:50→18:15)
[2021-09-12] MEDS: docusate sod 100mg capsule PO SCH ×2 (07:51→19:33)
[2021-09-12] MEDS: enoxaparin 80mg/0.8ml syringe SUBCUT SCH ×2 (07:51→19:31)
[2021-09-12] MEDS: pantoprazole 40mg Tablet.DR PO SCH (07:51)
[2021-09-12] MEDS: loratadine 10mg tablet PO SCH (07:51)
[2021-09-12] MEDS: lactobacillus rhamnosus 10,000 MMU CELLS/CAPSULE PO SCH ×2 (07:51→19:32)
[2021-09-12] MEDS: famotidine 20mg tablet PO SCH ×2 (07:51→19:32)
[2021-09-12] MEDS: cyclobenzaprine 10mg tablet PO SCH ×3 (07:51→19:32)
[2021-09-12] MEDS: methylPREDNISolone sod succ/PF 40mg inj. IV SCH (07:52)
[2021-09-12] MEDS: enoxaparin 30mg/0.3ml syringe SUBCUT SCH ×2 (07:52→19:32)
[2021-09-12] MEDS: K and/or MAG REPLACEMENT MC SCH ×2 (07:53→19:14)
[2021-09-12 08:23] LABS: MONOCYTES # (AUTO) 0.2 X10'3 (0-0.9); NEUTROPHILS # (AUTO) 8.6 X10'3 (1.8-7.7)
[2021-09-12 08:25] LABS: BASOPHILS % (AUTO) 0.3 % (0-1); EOSINOPHILS % (AUTO) 0.2 % (0-6); HEMATOCRIT 46.9 % (35.0-45.0); HEMOGLOBIN 15.6 g/dl (12.0-16.0); LYMPHOCYTES # (AUTO) 0.7 X10'3 (1.1-4.8); LYMPHOCYTES % (AUTO) 7.2 % (21-51); MEAN CORPUSCULAR HEMOGLOBIN 30.2 PG (27.0-31.0); MEAN CORPUSCULAR HGB CONC 33.4 g/dL (33.0-36.5); MEAN CORPUSCULAR VOLUME 90.5 FL (78-98); MEAN PLATELET VOLUME 9.4 FL (7.4-10.4); MONOCYTES % (AUTO) 1.6 % (2-12); NEUTROPHILS % (AUTO) 90.7 % (42-75); PLATELET COUNT 261 X10'3 (140-440); RED BLOOD COUNT 5.17 X10'6 (4.20-5.60); RED CELL DISTRIBUTION WIDTH 14.1 % (11.5-14.5); WHITE BLOOD COUNT 9.4 X10'3 (4.5-11.0)
[2021-09-12 08:49] LABS: ALANINE AMINOTRANSFERASE 87 U/L (12-78); ALBUMIN 3.1 G/DL (3.4-5.0); ALBUMIN/GLOBULIN RATIO 0.7 (1.1-1.5); ALKALINE PHOSPHATASE 76 IU/L (46-116); ANION GAP 9 (8-16); ASPARTATE AMINO TRANSFERASE 31 U/L (10-37); BILIRUBIN,TOTAL 0.5 MG/DL (0.1-1.0); BLOOD UREA NITROGEN 15 MG/DL (7-18); BUN/CREATININE RATIO 18.8 (6.6-38.0); C-REACTIVE PROTEIN 0.38 MG/DL (0.0-0.5); CALCIUM 9.2 MG/DL (8.5-10.1); CHLORIDE 101 MMOL/L (99-107); GLUCOSE 110 MG/DL (70-104); LACTATE DEHYDROGENASE 837 U/L (81-234); POTASSIUM 3.9 MMOL/L (3.5-5.1); SODIUM 140 MMOL/L (135-145); TOTAL CARBON DIOXIDE 30.1 MMOL/L (24-32); TOTAL PROTEIN 7.6 G/DL (6.4-8.2); eGFR 74 ML/MIN
[2021-09-12 09:51] LABS: LARGE PLATELETS FEW; PLATELET ESTIMATE NORMAL; TOTAL CELLS COUNTED 100
[2021-09-12 10:00] VITALS: BP 106/71
[2021-09-12] MEDS: budesonide 0.5mg/2ml UD nebule IH SCH ×2 (10:07→21:27)
[2021-09-12 14:00] VITALS: BP 111/60
[2021-09-12] MEDS: ascorbic acid 500mg tablet PO SCH (17:19)
[2021-09-12 18:00] VITALS: BP 97/70
--- NOTE | 2021-09-12 18:25 | NUR ---
Patient in room ORTHO 4012. I have received report from JANINE Lind and had the opportunity to ask questions and assume patient care.
[2021-09-12] MEDS: HYDROcodone/acetaminophen 7.5MG/325MG per 15ml UD CUP PO PRN (19:30)
--- NOTE | 2021-09-12 21:30 | NUR ---
Dr. Flores has been called regarding pt. HR 120.She order EKG .She d/c Albuterol treatment and order Xopenex ,and Atarax 25mg for anxiety.We will continue with pt. care.
[2021-09-12] MEDS: hydrOXYzine 25 MG tablet PO PRN (21:43)
[2021-09-12 22:00] VITALS: BP 147/83
[2021-09-13] MEDS: levalbuterol 0.63mg/3ml nebule IH SCH ×4 (02:45→20:40)
[2021-09-13 06:00] VITALS: BP 98/55
[2021-09-13] MEDS: hydrOXYzine 25 MG tablet PO PRN ×2 (06:07→19:49)
--- NOTE | 2021-09-13 06:28 | NUR ---
Problems reprioritized. Patient report given, questions answered & plan of care reviewed with JANINE Lind.
[2021-09-13] MEDS: HYDROcodone/acetaminophen 7.5MG/325MG per 15ml UD CUP PO PRN (07:31)
[2021-09-13] MEDS: docusate sod 100mg capsule PO SCH ×2 (07:32→19:49)
[2021-09-13] MEDS: zinc sulfate 220mg capsule PO SCH (07:32)
[2021-09-13] MEDS: enoxaparin 30mg/0.3ml syringe SUBCUT SCH ×2 (07:32→19:50)
[2021-09-13] MEDS: cyclobenzaprine 10mg tablet PO SCH (07:32)
[2021-09-13] MEDS: enoxaparin 80mg/0.8ml syringe SUBCUT SCH ×2 (07:32→19:50)
[2021-09-13] MEDS: pantoprazole 40mg Tablet.DR PO SCH (07:33)
[2021-09-13] MEDS: lactobacillus rhamnosus 10,000 MMU CELLS/CAPSULE PO SCH ×2 (07:33→19:49)
[2021-09-13] MEDS: loratadine 10mg tablet PO SCH (07:33)
[2021-09-13] MEDS: famotidine 20mg tablet PO SCH ×2 (07:33→19:49)
[2021-09-13] MEDS: ascorbic acid 500mg tablet PO SCH ×3 (07:34→17:37)
[2021-09-13] MEDS ORDERED: methylPREDNISolone sod succ/PF 40mg inj. IV SCH (08:00)
[2021-09-13] MEDS ORDERED: cholecalciferol (vitamin D3) 1,000 unit (25mcg) tablet PO SCH (08:00)
[2021-09-13] MEDS: K and/or MAG REPLACEMENT MC SCH ×2 (08:00→20:00)
[2021-09-13] MEDS: lactose-reduced food (Ensure Enlive) - 237ml bottle PO SCH ×3 (08:00→18:52)
[2021-09-13] MEDS: ipratropium/albuterol 3ml nebule NEB SCH ×2 (09:00→15:00)
[2021-09-13 09:07] LABS: D-DIMER 5.49 MG/L FEU (0-0.50)
--- NOTE | 2021-09-13 09:15 | NUR ---
Reassessment: Pt remains on CPAP at 100% per EMR. PO intake remains mostly similar, avg 48% intake of meals or Regular diet and 100% of ONS. Pt likely meeting nutrient needs w/ recent PO intake and ONS. LBM 09/11 receiving routine colace. No new nutrition intervention implemented at this time, will continue to monitor. Rec: 1. continue regular diet; encourage PO 2. Ensure Enlive TIDWM 3. IF PO regresses given bipap dependence; consider NG feeds to optimize nutrition status. IF TF; Vital AF at 65ml/hr goal; would provide 1560ml volume/day, 1872kcals, 1264ml water, and 117g protein. Adjust EN recs once scaled wt this admit 4. routine bowel care 5. scaled wt this admit; subsequent weekly wts Addendum: 09/13/21 at [address] Amended: Links added.
[2021-09-13] MEDS: budesonide 0.5mg/2ml UD nebule IH SCH ×2 (09:22→20:40)
[2021-09-13 09:36] LABS: C-REACTIVE PROTEIN 0.51 MG/DL (0.0-0.5)
[2021-09-13 10:00] VITALS: BP 110/76
[2021-09-13 14:00] VITALS: BP 112/78
[2021-09-13 18:00] VITALS: BP 118/86
--- NOTE | 2021-09-13 18:00 | NUR ---
Patient in room ORTHO 4012. I have received report from JANINE Lind and had the opportunity to ask questions and assume patient care.
[2021-09-13 22:00] VITALS: BP 93/58
[2021-09-14] VITALS (22 sets, daily range): BP systolic 81–141; BP diastolic 51–100
[2021-09-14] MEDS: HYDROcodone/acetaminophen 7.5MG/325MG per 15ml UD CUP PO PRN (00:40)
--- NOTE | 2021-09-14 00:40 | NUR ---
I was called by PCT regarding my pt. condition.Pt. found low on o2 sat 55.Rapid respond was page regarding pt.situation.Nursing supp. was present ,RT and charge nurse.Chest X ray was order by Nursing supp .Dr. Yeung was notified ,he order ABG, Lactic acid,Troponin,LR bolus ,EKG .We will continue with pt care.
[2021-09-14 01:00] LABS: ABG BASE EXCESS 1.2 mmol/L (-2.0-2.0); ABG HCO3 25.4 mmol/L (22.0-26.0); ABG PCO2 (T) 41.6 mmHg (32.0-45.0); ALLEN'S TEST POSITIVE; FCOHb 1.8 % (0.0-3.9); FMetHb 0.3 % (0.0-1.5); FO2Hb 73.4 % (94-97); PATIENT TEMPERATURE 38.3; TOTAL HEMOGLOBIN 16.3 G/dl (12.0-16.0)
[2021-09-14 01:30] LABS: C-REACTIVE PROTEIN 1.34 MG/DL (0.0-0.5); LACTATE DEHYDROGENASE 967 U/L (81-234)
[2021-09-14] MEDS ORDERED: LIDOcaine 2% 10ml TOPICAL JELLY (Urojet) TP ONE (01:50)
[2021-09-14] MEDS ORDERED: ringers solution, lactated 500ml IV solution IV SCH (01:55)
[2021-09-14] MEDS ORDERED: ringers solution, lactated 500ml IV solution IV ONE (01:55)
[2021-09-14] MEDS: levalbuterol 0.63mg/3ml nebule IH SCH ×4 (01:59→21:48)
[2021-09-14 02:02] LABS: BASOPHILS % (AUTO) 0.4 % (0-1); EOSINOPHILS # (AUTO) 0.2 X10'3 (0-0.9); EOSINOPHILS % (AUTO) 2.3 % (0-6); HEMATOCRIT 46.8 % (35.0-45.0); HEMOGLOBIN 16.1 g/dl (12.0-16.0); LYMPHOCYTES # (AUTO) 0.6 X10'3 (1.1-4.8); LYMPHOCYTES % (AUTO) 6.3 % (21-51); MEAN CORPUSCULAR HEMOGLOBIN 30.9 PG (27.0-31.0); MEAN CORPUSCULAR HGB CONC 34.4 g/dL (33.0-36.5); MEAN CORPUSCULAR VOLUME 89.8 FL (78-98); MEAN PLATELET VOLUME 9.7 FL (7.4-10.4); MONOCYTES # (AUTO) 0.2 X10'3 (0-0.9); MONOCYTES % (AUTO) 1.8 % (2-12); NEUTROPHILS # (AUTO) 8.4 X10'3 (1.8-7.7); NEUTROPHILS % (AUTO) 89.2 % (42-75); PLATELET COUNT 209 X10'3 (140-440); RED BLOOD COUNT 5.21 X10'6 (4.20-5.60); RED CELL DISTRIBUTION WIDTH 14.3 % (11.5-14.5); WHITE BLOOD COUNT 9.5 X10'3 (4.5-11.0)
[2021-09-14] MEDS: hydrOXYzine 25 MG tablet PO PRN (02:09)
[2021-09-14] MEDS: ringers solution, lacted 1,000 ML IV SCH ×3 (02:09→22:05)
[2021-09-14 02:13] LABS: D-DIMER 5.59 MG/L FEU (0-0.50)
[2021-09-14 02:15] LABS: ABG BASE EXCESS 5.5 mmol/L (-2.0-2.0); ABG OXYGEN SATURATION 93.5 % (94-97); ABG PCO2 (T) 41.7 mmHg (32.0-45.0); ABG PO2 (T) 63.7 mmHg (75.0-100.0); ALLEN'S TEST POSITIVE; FCOHb 1.2 % (0.0-3.9); FMetHb 0.1 % (0.0-1.5); FO2Hb 92.3 % (94-97); PATIENT TEMPERATURE 36.3
[2021-09-14 02:16] LABS: TROPONIN I < 0.04 NG/ML (0.0-0.05)
--- NOTE | 2021-09-14 02:30 | NUR ---
Rapid response called about 0045 for "panic attack" and SOB; unable to respond to rapid d/t emergency in ICU; Nursing drywall application supervisor, Altagracia responded, as well as hospitalist Dr. Yeung; apparently, pt OOB to use bathroom, took O2 off and became anxious and SOB; per nursg drywall application supervisor, pt assisted back to bed; ABG and CXR done; pt initally with low PaO2 on ABG and improved ABG one hr later after pt back on cpap and less anxious; labs reviewed w/Dr. Yeung and received more orders for patient, including quintero. Spoke w/Dr. Guy re: possible trsf to ICU but at present, telemedicine wanting pt to remain on ortho and if condition changes, will re-evaluate for possible transfer. Update received from Laya, charge nurse. Pt stable at present.
[2021-09-14] MEDS ORDERED: propofol 1000mg/100ml bottle 100 ML IV ONE ×5 (05:17→20:55)
--- NOTE | 2021-09-14 05:18 | NUR ---
I went to check on the pt.and the pt. Sat was 70 and she was dropping to a 40,I called for help .She had pulse.My charge nurse call Dionicio Wallace.All the dionicio wallace respond came and pt. got intubated .I called her sister and left a massage
--- NOTE | 2021-09-14 05:30 | NUR ---
RN Note -Pt arrived from Covid unit post respiratory pulse. Intubated. Made several unsuccessful attempts to place OG/NG.
--- NOTE | 2021-09-14 05:41 | NUR ---
Problems reprioritized. Patient report given, questions answered & plan of care reviewed with JulianRN.
[2021-09-14 05:56] LABS: ABG BASE EXCESS -3.5 mmol/L (-2.0-2.0); ABG HCO3 26.3 mmol/L (22.0-26.0); ABG OXYGEN SATURATION 30.1 % (94-97); ABG PCO2 (T) 69.2 mmHg (32.0-45.0); ABG PO2 (T) < 28.0 mmHg (75.0-100.0); ALLEN'S TEST POSITIVE; FCOHb 1.3 % (0.0-3.9); FMetHb 0.4 % (0.0-1.5); FO2Hb 29.6 % (94-97); PEEP 15 cm H2O; RESPIRATORY RATE 26 b/min; TOTAL HEMOGLOBIN 15.1 G/dl (12.0-16.0)
[2021-09-14] MEDS: epiNEPHrine inj 5 MG in normal saline 250ml IV soln 245 ML IV SCH ×3 (06:05→21:23)
--- NOTE | 2021-09-14 06:30 | NUR ---
RN Note -Followed up with Dr. Pathak. Orders received.
[2021-09-14] MEDS ORDERED: calcium chloride 100 MG/1 ML inj IV ONE (06:32)
--- NOTE | 2021-09-14 06:39 | NUR ---
Dionicio wallace called about 0500 on patient; upon arrival, staff stated that "patient had bipap on and just passed out". Resp therapist, Kristin and Lorenzo stated that filter on bipap connected incorrectly, it was connected to the exhalation port. Pt intubated by Dr. Espinoza w/o problems on ortho then transferred to 2008. Dr. Pathak, telemedicine updated. CXR done and tube placement verified.
[2021-09-14] MEDS ORDERED: NORepinephrine 8mg/ 250ml NS 250 ML IV ONE ×4 (07:06→20:00)
[2021-09-14] MEDS ORDERED: furosemide 40mg/4ml inj ONE (07:15)
[2021-09-14] MEDS ORDERED: sodium bicarbonate (8.4%) 1 mEq/ml syringe ONE ×2 (07:16→07:28)
[2021-09-14 07:26] LABS: ABG BASE EXCESS -16.9 mmol/L (-2.0-2.0); ABG HCO3 14.9 mmol/L (22.0-26.0); ABG PCO2 (T) 61.9 mmHg (32.0-45.0); FMetHb 0.3 % (0.0-1.5); FO2Hb 30.6 % (94-97); PEEP 14 cm H2O; RESPIRATORY RATE 26 b/min; TIDAL VOLUME 450 mL; TOTAL HEMOGLOBIN 13.8 G/dl (12.0-16.0)
[2021-09-14] MEDS: lactose-reduced food (Ensure Enlive) - 237ml bottle PO SCH ×3 (08:00→18:00)
[2021-09-14] MEDS: zinc sulfate 220mg capsule PO SCH (08:00)
[2021-09-14] MEDS: lactobacillus rhamnosus 10,000 MMU CELLS/CAPSULE PO SCH (08:00)
[2021-09-14] MEDS: docusate sod 100mg capsule PO SCH ×2 (08:00→20:00)
[2021-09-14] MEDS: K and/or MAG REPLACEMENT MC SCH ×2 (08:00→20:00)
[2021-09-14] MEDS: loratadine 10mg tablet PO SCH (08:00)
[2021-09-14] MEDS: budesonide 0.5mg/2ml UD nebule IH SCH ×2 (08:06→21:48)
[2021-09-14] MEDS: ascorbic acid 500mg tablet PO SCH ×3 (08:30→17:30)
--- NOTE | 2021-09-14 08:46 | NUR ---
Assumed care of pt at 0600. pt sat was 48% on 100% with peep of 15. pt's sedation ran thru the left ac 20g which was positional and would not run, sedation moved to right ac. sedation having good effect. noted pt to be hypotensive with bp in the 50-60's systolic. call out clerk doc notified and orders received. Call placed to Day sealer dry cell who responded. left IJ quad lumen CL and Right radial art placed. Levophed started. md, rt, and information technology intern at bedside pt proned. pulse ox slowly increased currently sat 80's.
[2021-09-14 08:59] LABS: ABG BASE EXCESS 4.7 mmol/L (-2.0-2.0); ABG HCO3 31.9 mmol/L (22.0-26.0); ABG OXYGEN SATURATION 80.1 % (94-97); ABG PCO2 (T) 56.3 mmHg (32.0-45.0); ABG PO2 (T) 43.5 mmHg (75.0-100.0); FCOHb 1.3 % (0.0-3.9); FMetHb 0.1 % (0.0-1.5); PATIENT TEMPERATURE 36.4; PEEP 20 cm H2O; RESPIRATORY RATE 30 b/min; TIDAL VOLUME 550 mL; TOTAL HEMOGLOBIN 14.9 G/dl (12.0-16.0)
[2021-09-14 09:11] LABS: BASOPHILS % (AUTO) 0.3 % (0-1); HEMOGLOBIN 14.1 g/dl (12.0-16.0); MONOCYTES # (AUTO) 0.2 X10'3 (0-0.9); WHITE BLOOD COUNT 12.7 X10'3 (4.5-11.0)
[2021-09-14 09:14] LABS: EOSINOPHILS # (AUTO) 0.2 X10'3 (0-0.9); EOSINOPHILS % (AUTO) 1.2 % (0-6); HEMATOCRIT 43.1 % (35.0-45.0); LYMPHOCYTES # (AUTO) 0.8 X10'3 (1.1-4.8); LYMPHOCYTES % (AUTO) 6.2 % (21-51); MEAN CORPUSCULAR HEMOGLOBIN 29.9 PG (27.0-31.0); MEAN CORPUSCULAR HGB CONC 32.8 g/dL (33.0-36.5); MEAN CORPUSCULAR VOLUME 91.1 FL (78-98); MEAN PLATELET VOLUME 9.8 FL (7.4-10.4); MONOCYTES % (AUTO) 1.8 % (2-12); NEUTROPHILS # (AUTO) 11.5 X10'3 (1.8-7.7); NEUTROPHILS % (AUTO) 90.5 % (42-75); PLATELET COUNT 238 X10'3 (140-440); RED BLOOD COUNT 4.73 X10'6 (4.20-5.60); RED CELL DISTRIBUTION WIDTH 14.6 % (11.5-14.5)
[2021-09-14 09:22] LABS: ALANINE AMINOTRANSFERASE 77 U/L (12-78); ALBUMIN 2.5 G/DL (3.4-5.0); ALBUMIN/GLOBULIN RATIO 0.6 (1.1-1.5); ALKALINE PHOSPHATASE 91 IU/L (46-116); ANION GAP 16 (8-16); ASPARTATE AMINO TRANSFERASE 50 U/L (10-37); BILIRUBIN,TOTAL 0.5 MG/DL (0.1-1.0); BLOOD UREA NITROGEN 17 MG/DL (7-18); CALCIUM 8.1 MG/DL (8.5-10.1); CHLORIDE 100 MMOL/L (99-107); CREATININE 1.42 MG/DL (0.40-0.90); POTASSIUM 3.2 MMOL/L (3.5-5.1); SODIUM 146 MMOL/L (135-145); TOTAL CARBON DIOXIDE 30.4 MMOL/L (24-32); TOTAL PROTEIN 6.4 G/DL (6.4-8.2); eGFR 38 ML/MIN
[2021-09-14 09:24] LABS: MAGNESIUM 2.2 MG/DL (1.5-2.4); PHOSPHORUS 7.1 MG/DL (2.3-4.5)
[2021-09-14 09:25] LABS: GLUCOSE 343 MG/DL (70-104)
[2021-09-14] MEDS ORDERED: cefepime 2g/NS 100ml ADVANTAGE 100 ML IV SCH (09:55)
[2021-09-14] MEDS: midazolam 100mg in NS 100ml 100 ML IV PRN ×2 (09:59→14:08)
[2021-09-14] MEDS: FENTANYL-0.9 % NACL/PF 100 ML IV PRN ×5 (10:00→23:59)
[2021-09-14] MEDS ORDERED: famotidine/PF 10 mg/ml inj IV SCH (10:10)
[2021-09-14] MEDS ORDERED: sodium bicarbonate (8.4%) 1 mEq/ml syringe IV ONE (10:16)
[2021-09-14] MEDS: CEFEPIME 2gm in D5W 50mL 50 ML IV SCH ×2 (10:24→21:12)
[2021-09-14] MEDS: micafungin inj 100 MG in normal saline 100ml IV soln 100 ML IV SCH (11:13)
[2021-09-14] MEDS ORDERED: vancomycin/NS 1 GM ADD-VANTAGE 250 ML IV PRN (11:55)
--- NOTE | 2021-09-14 12:02 | NUR ---
Reassessment: Pt s/p code blue resulting in intubation this morning. OG/NG tube placement was unsuccessful per room service runner. TF recommendations below for if access is achieved and prolonged intubation is expected. Estimated nutrient needs were calculated using IBW +10% as current documented wt isn't scaled. Of note pt documented to be receiving Propofol at 40 mL/hr which will provide 1056 kcal/day. TF recommendations calculated with at this Propofol rate will NOT meet patient's estimated protein needs. Additional TF recommendations below for if Propofol is weaned. LBM 09/11, receiving routine bowel care with additional PRN bowel care available. Will continue to follow closely. Recommendations: 1) IF TF with Propofol at 40 mL/hr, continuous Vital High Protein with 23 mL/hr goal to provide 552 mL total volume/day, 552 kcal, 48 g protein, and 461 mL water. Will NOT meet estimated protein needs but will meet estimated energy needs combined with kcal from Propofol 2) IF TF and Propofol weaned off, continuous Vital High Protein with 65 mL/hr goal rate to provide 1560 mL total volume/day, 1560 kcal, 137 protein, and 1304 mL water 3) IF TF, additional 100 mL water flush Q4H; monitor serum Na and adjust as appropriate 4) IF TF, prealbumin q Friday/; daily scaled weights 5) Routine bowel care Addendum: 09/14/21 at [address] Amended: Links added.
[2021-09-14] MEDS: enoxaparin 80mg/0.8ml syringe SUBCUT SCH ×2 (12:24→23:11)
[2021-09-14] MEDS: enoxaparin 30mg/0.3ml syringe SUBCUT SCH ×2 (12:25→23:13)
[2021-09-14] MEDS: methylPREDNISolone sod succ/PF 40mg inj. IV SCH (12:25)
[2021-09-14] MEDS ORDERED: glucagon, human recombinant 1mg kit SUBCUT PRN (14:30)
[2021-09-14] MEDS ORDERED: dextrose 50%-water 50ml dispensing syringe IV PRN ×2 (14:30)
[2021-09-14] MEDS ORDERED: MESSAGE TO PHARMACY PO ONE (14:30)
[2021-09-14] MEDS ORDERED: dextrose ORAL solution 15 GM/59 ML bottle PO PRN ×2 (14:30)
[2021-09-14] MEDS: acetaminophen 650mg rectal suppository RC PRN (14:39)
--- NOTE | 2021-09-14 14:39 | NUR ---
pt medicated with tyl suppository for temp of 38.7
[2021-09-14 15:03] LABS: ABG BASE EXCESS 8.2 mmol/L (-2.0-2.0); ABG HCO3 31.6 mmol/L (22.0-26.0); ABG OXYGEN SATURATION 96.3 % (94-97); ABG PCO2 (T) 42.5 mmHg (32.0-45.0); ABG PO2 (T) 89.2 mmHg (75.0-100.0); FCOHb 1.2 % (0.0-3.9); FMetHb 0.1 % (0.0-1.5); PATIENT TEMPERATURE 38.9; PEEP 16 cm H2O; RESPIRATORY RATE 30 b/min; TIDAL VOLUME 550 mL; TOTAL HEMOGLOBIN 14.6 G/dl (12.0-16.0)
[2021-09-14 15:28] LABS: BASOPHILS % (AUTO) 0 % (0-1); EOSINOPHILS # (AUTO) 0.1 X10'3 (0-0.9); HEMATOCRIT 40.7 % (35.0-45.0); HEMOGLOBIN 13.7 g/dl (12.0-16.0); LYMPHOCYTES # (AUTO) 0.3 X10'3 (1.1-4.8); LYMPHOCYTES % (AUTO) 2.1 % (21-51); MEAN CORPUSCULAR HEMOGLOBIN 29.9 PG (27.0-31.0); MEAN CORPUSCULAR HGB CONC 33.6 g/dL (33.0-36.5); MEAN CORPUSCULAR VOLUME 88.7 FL (78-98); MEAN PLATELET VOLUME 9.4 FL (7.4-10.4); MONOCYTES # (AUTO) 0.4 X10'3 (0-0.9); MONOCYTES % (AUTO) 2.7 % (2-12); NEUTROPHILS # (AUTO) 13.1 X10'3 (1.8-7.7); NEUTROPHILS % (AUTO) 94.2 % (42-75); PLATELET COUNT 217 X10'3 (140-440); RED BLOOD COUNT 4.58 X10'6 (4.20-5.60); WHITE BLOOD COUNT 13.9 X10'3 (4.5-11.0)
[2021-09-14 16:03] LABS: ALANINE AMINOTRANSFERASE 96 U/L (12-78); ALBUMIN 2.5 G/DL (3.4-5.0); ALBUMIN/GLOBULIN RATIO 0.7 (1.1-1.5); ALKALINE PHOSPHATASE 89 IU/L (46-116); ANION GAP 6 (8-16); ASPARTATE AMINO TRANSFERASE 66 U/L (10-37); BILIRUBIN,TOTAL 0.6 MG/DL (0.1-1.0); BLOOD UREA NITROGEN 20 MG/DL (7-18); BUN/CREATININE RATIO 17.9 (6.6-38.0); CALCIUM 7.9 MG/DL (8.5-10.1); CHLORIDE 104 MMOL/L (99-107); CREATININE 1.12 MG/DL (0.40-0.90); PHOSPHORUS 4.3 MG/DL (2.3-4.5); POTASSIUM 4.1 MMOL/L (3.5-5.1); SODIUM 144 MMOL/L (135-145); TOTAL CARBON DIOXIDE 33.7 MMOL/L (24-32); TOTAL PROTEIN 6.1 G/DL (6.4-8.2); eGFR 50 ML/MIN
[2021-09-14 16:05] LABS: GLUCOSE 202 MG/DL (70-104)
[2021-09-14 16:25] LABS: HEMOGLOBIN A1C 6.8 % (4.5-6.2)
--- NOTE | 2021-09-14 19:00 | NUR ---
Patient in room CICU 2008. I have received report from Dennis MEHTA and had the opportunity to ask questions and assume patient care.
[2021-09-14] MEDS ORDERED: ascorbic acid 500mg tablet PO SCH (20:00)
[2021-09-14] MEDS: insulin Lispro (HumaLOG) vial - multi-dose SQ SCH (21:20)
[2021-09-14] MEDS: insulin glargine (Lantus) pen - multi-dose SQ SCH (21:21)
--- NOTE | 2021-09-14 23:49 | NUR ---
Late note, during the shift patient had pulled her mask off to take a drink of water. She also was noted to be pulling at her mask multiple times throughout the shift while nurse, Melissa RN was by her bedside helping her through her panic attacks that she had during the night. She apparently didn't like the noise of the machine and was pulling at the mask and trying to take it off and adjust it while Melissa was in the room at times. This if for the night of 09/13/21.
[2021-09-14] MEDS: propofol 1000mg/100ml bottle 100 ML IV SCH (23:55)
[2021-09-15] VITALS (23 sets, daily range): BP systolic 97–144; BP diastolic 6–77
[2021-09-15] MEDS: NORepinephrine 8mg/ 250ml NS 250 ML IV SCH ×4 (00:02→21:43)
[2021-09-15] MEDS ORDERED: VANCOMYCIN LEVEL IV SCH (03:00)
[2021-09-15 03:04] LABS: BASOPHILS # (AUTO) 0.1 X10'3 (0-0.2); BASOPHILS % (AUTO) 0.5 % (0-1); EOSINOPHILS % (AUTO) 0.4 % (0-6); HEMATOCRIT 39.3 % (35.0-45.0); HEMOGLOBIN 13.4 g/dl (12.0-16.0); LYMPHOCYTES # (AUTO) 0.9 X10'3 (1.1-4.8); LYMPHOCYTES % (AUTO) 8.8 % (21-51); MEAN CORPUSCULAR HEMOGLOBIN 30.3 PG (27.0-31.0); MEAN CORPUSCULAR VOLUME 89.2 FL (78-98); MEAN PLATELET VOLUME 9.4 FL (7.4-10.4); MONOCYTES # (AUTO) 0.3 X10'3 (0-0.9); MONOCYTES % (AUTO) 3.2 % (2-12); NEUTROPHILS # (AUTO) 9.1 X10'3 (1.8-7.7); NEUTROPHILS % (AUTO) 87.1 % (42-75); PLATELET COUNT 213 X10'3 (140-440); RED BLOOD COUNT 4.41 X10'6 (4.20-5.60); RED CELL DISTRIBUTION WIDTH 14.3 % (11.5-14.5); WHITE BLOOD COUNT 10.4 X10'3 (4.5-11.0)
[2021-09-15 03:09] LABS: ALANINE AMINOTRANSFERASE 89 U/L (12-78); ALBUMIN 2.3 G/DL (3.4-5.0); ALBUMIN/GLOBULIN RATIO 0.6 (1.1-1.5); ALKALINE PHOSPHATASE 86 IU/L (46-116); ANION GAP 7 (8-16); ASPARTATE AMINO TRANSFERASE 48 U/L (10-37); BILIRUBIN,TOTAL 0.5 MG/DL (0.1-1.0); BLOOD UREA NITROGEN 15 MG/DL (7-18); BUN/CREATININE RATIO 18.3 (6.6-38.0); C-REACTIVE PROTEIN 3.96 MG/DL (0.0-0.5); CALCIUM 7.7 MG/DL (8.5-10.1); CHLORIDE 108 MMOL/L (99-107); CREATININE 0.82 MG/DL (0.40-0.90); D-DIMER 2.97 MG/L FEU (0-0.50); LACTATE DEHYDROGENASE 751 U/L (81-234); MAGNESIUM 2.1 MG/DL (1.5-2.4); PARTIAL THROMBOPLASTIN TIME 28 SECONDS (22-32); PHOSPHORUS 2.7 MG/DL (2.3-4.5); POTASSIUM 3.7 MMOL/L (3.5-5.1); SODIUM 145 MMOL/L (135-145); TOTAL CARBON DIOXIDE 29.9 MMOL/L (24-32); TOTAL PROTEIN 6.1 G/DL (6.4-8.2); TRIGLYCERIDES 264 MG/DL (20-135); eGFR 72 ML/MIN
[2021-09-15 03:17] LABS: GLUCOSE 133 MG/DL (70-104); VANCOMYCIN,RANDOM 6.6 UG/ML
[2021-09-15] MEDS: levalbuterol 0.63mg/3ml nebule IH SCH ×4 (03:19→21:28)
[2021-09-15 03:38] LABS: ABG BASE EXCESS 6.4 mmol/L (-2.0-2.0); ABG HCO3 28.1 mmol/L (22.0-26.0); ABG OXYGEN SATURATION 93.9 % (94-97); ABG PCO2 (T) 33.7 mmHg (32.0-45.0); ABG PO2 (T) 70.1 mmHg (75.0-100.0); FMetHb 0.3 % (0.0-1.5); FO2Hb 92.7 % (94-97); PATIENT TEMPERATURE 38.4; PEEP 12 cm H2O; RESPIRATORY RATE 24 b/min; TIDAL VOLUME 550 mL; TOTAL HEMOGLOBIN 13.7 G/dl (12.0-16.0)
[2021-09-15] MEDS: FENTANYL-0.9 % NACL/PF 100 ML IV PRN ×4 (03:59→20:57)
[2021-09-15] MEDS: epiNEPHrine inj 5 MG in normal saline 250ml IV soln 245 ML IV SCH ×3 (05:02→20:20)
[2021-09-15] MEDS ORDERED: vancomycin/NS 1 GM ADD-VANTAGE 250 ML IV ONE (06:25)
[2021-09-15] MEDS: CEFEPIME 2gm in D5W 50mL 50 ML IV SCH ×2 (07:27→20:47)
[2021-09-15] MEDS: methylPREDNISolone sod succ/PF 40mg inj. IV SCH (07:27)
[2021-09-15] MEDS: enoxaparin 30mg/0.3ml syringe SUBCUT SCH ×2 (07:28→20:48)
[2021-09-15] MEDS: enoxaparin 80mg/0.8ml syringe SUBCUT SCH ×2 (07:28→20:48)
[2021-09-15] MEDS: pantoprazole 40 MG vial IV SCH (07:28)
[2021-09-15] MEDS: micafungin inj 100 MG in normal saline 100ml IV soln 100 ML IV SCH (07:29)
[2021-09-15] MEDS: ascorbic acid 500mg tablet PO SCH ×3 (07:34→16:36)
[2021-09-15] MEDS: loratadine 10mg tablet PO SCH (07:34)
[2021-09-15] MEDS: lactose-reduced food (Ensure Enlive) - 237ml bottle PO SCH ×3 (07:34→16:36)
[2021-09-15] MEDS: zinc sulfate 220mg capsule PO SCH (07:34)
[2021-09-15] MEDS: docusate sod 100mg capsule PO SCH ×2 (07:34→20:00)
[2021-09-15] MEDS: K and/or MAG REPLACEMENT MC SCH ×2 (08:00→20:00)
[2021-09-15] MEDS: ringers solution, lacted 1,000 ML IV SCH ×2 (08:05→16:36)
[2021-09-15] MEDS: midazolam 100mg in NS 100ml 100 ML IV PRN ×3 (08:15→20:57)
[2021-09-15] MEDS: budesonide 0.5mg/2ml UD nebule IH SCH ×2 (08:58→21:28)
--- NOTE | 2021-09-15 09:41 | NUR ---
Noted pt with a low Trever of 12. No edema or wounds per physical assessment. Noted pt with A1c 6.8% with no PMH of DM in EMR, will d/w MD. Pt will need official DM dx by physician prior to RD being able to provide pt with DM education if this is a new diagnosis. Pt remains on the ventilator at this time. Will continue to follow closely. Addendum: 09/15/21 at [address] Amended: Links added.
[2021-09-15] MEDS: propofol 1000mg/100ml bottle 100 ML IV SCH ×3 (12:26→20:58)
[2021-09-15] MEDS: insulin Lispro (HumaLOG) vial - multi-dose SQ SCH (16:17)
[2021-09-15] MEDS: insulin glargine (Lantus) pen - multi-dose SQ SCH (21:36)
[2021-09-16] VITALS (24 sets, daily range): BP systolic 100–149; BP diastolic 50–73
[2021-09-16] MEDS: vancomycin/NS 1 GM ADD-VANTAGE 250 ML IV SCH ×3 (00:11→19:00)
[2021-09-16] MEDS: FENTANYL-0.9 % NACL/PF 100 ML IV PRN ×3 (01:23→12:43)
[2021-09-16] MEDS: propofol 1000mg/100ml bottle 100 ML IV SCH ×3 (01:29→16:42)
[2021-09-16 02:45] LABS: ABG BASE EXCESS 3.7 mmol/L (-2.0-2.0); ABG PCO2 (T) 33.1 mmHg (32.0-45.0); ABG PO2 (T) 71.7 mmHg (75.0-100.0); FCOHb 0.8 % (0.0-3.9); FMetHb 0.1 % (0.0-1.5); FO2Hb 93.2 % (94-97); PEEP 12 cm H2O; RESPIRATORY RATE 24 b/min; TIDAL VOLUME 550 mL; TOTAL HEMOGLOBIN 12.4 G/dl (12.0-16.0)
[2021-09-16] MEDS: levalbuterol 0.63mg/3ml nebule IH SCH ×4 (02:51→20:49)
[2021-09-16 03:06] LABS: BASOPHILS % (AUTO) 0.3 % (0-1); EOSINOPHILS # (AUTO) 0.1 X10'3 (0-0.9); EOSINOPHILS % (AUTO) 0.6 % (0-6); HEMATOCRIT 35.2 % (35.0-45.0); HEMOGLOBIN 11.8 g/dl (12.0-16.0); LYMPHOCYTES # (AUTO) 0.8 X10'3 (1.1-4.8); LYMPHOCYTES % (AUTO) 7.8 % (21-51); MEAN CORPUSCULAR HEMOGLOBIN 30.1 PG (27.0-31.0); MEAN CORPUSCULAR HGB CONC 33.5 g/dL (33.0-36.5); MEAN CORPUSCULAR VOLUME 89.9 FL (78-98); MEAN PLATELET VOLUME 9.4 FL (7.4-10.4); MONOCYTES # (AUTO) 0.4 X10'3 (0-0.9); MONOCYTES % (AUTO) 4.2 % (2-12); NEUTROPHILS # (AUTO) 9.1 X10'3 (1.8-7.7); NEUTROPHILS % (AUTO) 87.1 % (42-75); PLATELET COUNT 197 X10'3 (140-440); RED BLOOD COUNT 3.91 X10'6 (4.20-5.60); RED CELL DISTRIBUTION WIDTH 14.2 % (11.5-14.5); WHITE BLOOD COUNT 10.4 X10'3 (4.5-11.0)
[2021-09-16] MEDS: epiNEPHrine inj 5 MG in normal saline 250ml IV soln 245 ML IV SCH (03:59)
[2021-09-16] MEDS: ringers solution, lacted 1,000 ML IV SCH ×2 (04:05→14:05)
[2021-09-16 04:39] LABS: TOTAL CELLS COUNTED 100
[2021-09-16 04:40] LABS: PLATELET ESTIMATE NORMAL
[2021-09-16 04:41] LABS: POLYCHROMASIA FEW; SMUDGE CELLS 2+
[2021-09-16 04:42] LABS: STOMATOCYTES FEW
[2021-09-16 04:47] LABS: ALBUMIN 2.2 G/DL (3.4-5.0); ALBUMIN/GLOBULIN RATIO 0.6 (1.1-1.5); ALKALINE PHOSPHATASE 74 IU/L (46-116); TOTAL PROTEIN 5.8 G/DL (6.4-8.2)
[2021-09-16 04:50] LABS: ALANINE AMINOTRANSFERASE 69 U/L (12-78); ANION GAP 9 (8-16); ASPARTATE AMINO TRANSFERASE 29 U/L (10-37); BILIRUBIN,TOTAL 0.4 MG/DL (0.1-1.0); BLOOD UREA NITROGEN 13 MG/DL (7-18); BUN/CREATININE RATIO 17.1 (6.6-38.0); C-REACTIVE PROTEIN 1.86 MG/DL (0.0-0.5); CHLORIDE 111 MMOL/L (99-107); CREATININE 0.76 MG/DL (0.40-0.90); GLUCOSE 120 MG/DL (70-104); LACTATE DEHYDROGENASE 593 U/L (81-234); MAGNESIUM 2.1 MG/DL (1.5-2.4); PHOSPHORUS 2.8 MG/DL (2.3-4.5); POTASSIUM 3.6 MMOL/L (3.5-5.1); SODIUM 145 MMOL/L (135-145); TOTAL CARBON DIOXIDE 24.6 MMOL/L (24-32); eGFR 79 ML/MIN
--- NOTE | 2021-09-16 06:40 | NUR ---
Patient in room CICU 2008. I have received report from RonyRN / JANINE Silvestre and had the opportunity to ask questions and assume patient care.
[2021-09-16] MEDS: loratadine 10mg tablet PO SCH (07:33)
[2021-09-16] MEDS: methylPREDNISolone sod succ/PF 40mg inj. IV SCH (07:33)
[2021-09-16] MEDS: zinc sulfate 220mg capsule PO SCH (07:33)
[2021-09-16] MEDS: pantoprazole 40 MG vial IV SCH (07:33)
[2021-09-16] MEDS: enoxaparin 30mg/0.3ml syringe SUBCUT SCH ×2 (07:34→20:12)
[2021-09-16] MEDS: enoxaparin 80mg/0.8ml syringe SUBCUT SCH ×2 (07:34→20:12)
[2021-09-16] MEDS: midazolam 100mg in NS 100ml 100 ML IV PRN (07:40)
[2021-09-16] MEDS: lactose-reduced food (Ensure Enlive) - 237ml bottle PO SCH ×3 (08:00→18:00)
[2021-09-16] MEDS: K and/or MAG REPLACEMENT MC SCH ×2 (08:00→20:00)
[2021-09-16] MEDS: budesonide 0.5mg/2ml UD nebule IH SCH ×2 (08:21→20:49)
[2021-09-16] MEDS: CEFEPIME 2gm in D5W 50mL 50 ML IV SCH ×2 (09:12→20:12)
[2021-09-16] MEDS: ascorbic acid 500mg tablet PO SCH ×3 (09:12→16:42)
[2021-09-16] MEDS: micafungin inj 100 MG in normal saline 100ml IV soln 100 ML IV SCH (10:10)
[2021-09-16] MEDS: NORepinephrine 8mg/ 250ml NS 250 ML IV SCH ×2 (10:15→20:13)
--- NOTE | 2021-09-16 18:28 | NUR ---
Problems reprioritized. Patient report given, questions answered & plan of care reviewed with JANINE Turner.
[2021-09-16] MEDS ORDERED: VANCOMYCIN LEVEL IV ONE (18:30)
[2021-09-16] MEDS: docusate sodium 100mg/10ml UD cup PO SCH (20:00)
[2021-09-16] MEDS: insulin Lispro (HumaLOG) vial - multi-dose SQ SCH (21:10)
[2021-09-16] MEDS: insulin glargine (Lantus) pen - multi-dose SQ SCH (21:12)
[2021-09-17] VITALS (24 sets, daily range): BP systolic 90–120; BP diastolic 51–63
[2021-09-17] MEDS: ringers solution, lacted 1,000 ML IV SCH ×3 (00:05→20:56)
[2021-09-17] MEDS: propofol 1000mg/100ml bottle 100 ML IV SCH ×2 (02:12→20:54)
[2021-09-17 02:33] LABS: D-DIMER 1.01 MG/L FEU (0-0.50)
[2021-09-17] MEDS: levalbuterol 0.63mg/3ml nebule IH SCH ×4 (03:12→19:15)
[2021-09-17 03:19] LABS: ABG HCO3 23.6 mmol/L (22.0-26.0); ABG OXYGEN SATURATION 94.5 % (94-97); ABG PCO2 (T) 35.5 mmHg (32.0-45.0); ABG PO2 (T) 74.2 mmHg (75.0-100.0); FCOHb 0.2 % (0.0-3.9); FO2Hb 94.3 % (94-97); PATIENT TEMPERATURE 37.5; PEEP 11 cm H2O; RESPIRATORY RATE 18 b/min; TIDAL VOLUME 550 mL; TOTAL HEMOGLOBIN 11.3 G/dl (12.0-16.0)
[2021-09-17 03:53] LABS: C-REACTIVE PROTEIN 0.57 MG/DL (0.0-0.5)
[2021-09-17] MEDS: NORepinephrine 8mg/ 250ml NS 250 ML IV SCH ×3 (06:01→23:55)
--- NOTE | 2021-09-17 06:30 | NUR ---
Patient in room CICU 2008. I have received report from JANINE Turner and had the opportunity to ask questions and assume patient care.
[2021-09-17] MEDS: zinc sulfate 220mg capsule PO SCH (07:44)
[2021-09-17] MEDS: ascorbic acid 500mg tablet PO SCH ×2 (07:44→15:26)
[2021-09-17] MEDS: loratadine 10mg tablet PO SCH (07:44)
[2021-09-17] MEDS: pantoprazole 40 MG vial IV SCH (07:45)
[2021-09-17] MEDS: methylPREDNISolone sod succ/PF 40mg inj. IV SCH (07:45)
[2021-09-17] MEDS: enoxaparin 80mg/0.8ml syringe SUBCUT SCH ×2 (07:46→20:56)
[2021-09-17] MEDS: enoxaparin 30mg/0.3ml syringe SUBCUT SCH ×2 (07:46→20:56)
[2021-09-17 07:49] LABS: BASOPHILS % (AUTO) 0.3 % (0-1); EOSINOPHILS # (AUTO) 0.1 X10'3 (0-0.9); EOSINOPHILS % (AUTO) 2.1 % (0-6); HEMATOCRIT 31.2 % (35.0-45.0); HEMOGLOBIN 10.5 g/dl (12.0-16.0); LYMPHOCYTES # (AUTO) 0.9 X10'3 (1.1-4.8); LYMPHOCYTES % (AUTO) 12.3 % (21-51); MEAN CORPUSCULAR HEMOGLOBIN 30.4 PG (27.0-31.0); MEAN CORPUSCULAR HGB CONC 33.8 g/dL (33.0-36.5); MEAN PLATELET VOLUME 8.9 FL (7.4-10.4); MONOCYTES # (AUTO) 0.4 X10'3 (0-0.9); MONOCYTES % (AUTO) 5.4 % (2-12); NEUTROPHILS # (AUTO) 5.8 X10'3 (1.8-7.7); NEUTROPHILS % (AUTO) 79.9 % (42-75); PLATELET COUNT 177 X10'3 (140-440); RED BLOOD COUNT 3.46 X10'6 (4.20-5.60); RED CELL DISTRIBUTION WIDTH 14.5 % (11.5-14.5); WHITE BLOOD COUNT 7.2 X10'3 (4.5-11.0)
[2021-09-17] MEDS: docusate sodium 100mg/10ml UD cup PO SCH (08:00)
[2021-09-17] MEDS: K and/or MAG REPLACEMENT MC SCH ×2 (08:00→20:00)
[2021-09-17] MEDS: lactose-reduced food (Ensure Enlive) - 237ml bottle PO SCH (08:00)
[2021-09-17] MEDS ORDERED: cefepime 2g/NS 100ml ADVANTAGE 100 ML IV SCH (08:00)
[2021-09-17 08:17] LABS: ALANINE AMINOTRANSFERASE 48 U/L (12-78); ALBUMIN 2.1 G/DL (3.4-5.0); ALBUMIN/GLOBULIN RATIO 0.6 (1.1-1.5); ALKALINE PHOSPHATASE 60 IU/L (46-116); ANION GAP 10 (8-16); ASPARTATE AMINO TRANSFERASE 20 U/L (10-37); BILIRUBIN,TOTAL 0.2 MG/DL (0.1-1.0); BLOOD UREA NITROGEN 14 MG/DL (7-18); CHLORIDE 112 MMOL/L (99-107); CREATININE 0.61 MG/DL (0.40-0.90); GLUCOSE 80 MG/DL (70-104); PHOSPHORUS 2.9 MG/DL (2.3-4.5); POTASSIUM 3.5 MMOL/L (3.5-5.1); SODIUM 146 MMOL/L (135-145); TOTAL CARBON DIOXIDE 24.2 MMOL/L (24-32); TOTAL PROTEIN 5.6 G/DL (6.4-8.2); eGFR > 90 ML/MIN
[2021-09-17] MEDS: micafungin inj 100 MG in normal saline 100ml IV soln 100 ML IV SCH (08:49)
[2021-09-17] MEDS: vancomycin/NS 1 GM ADD-VANTAGE 250 ML IV SCH ×2 (10:04→18:01)
[2021-09-17] MEDS: budesonide 0.5mg/2ml UD nebule IH SCH ×2 (10:33→19:15)
--- NOTE | 2021-09-17 12:45 | NUR ---
TF Consult: Pt remains intubated w/ MAP 74 and TF to start today per MD. Noted no documentation of oral access in EMR; OG in place per RN this AM. TF recs below adjusted for pt current propofol rate at 32.727ml/hr providing additional 864 kcals/day. Noted LBM 09/11 6 days constipation w/ routine colace ordered; may benefit from additional bowel care this admit. Will monitor for TF tolerance and adjustment needs. Recommendations: 1) Continuos TF per MD. Given Propofol at 32.727mL/hr, continuous Vital High Protein with 30mL/hr goal to provide 720mL total volume/day, 720kcal, 63g protein, and 605mL water. Will NOT meet estimated protein needs but will meet estimated energy needs combined with kcal from Propofol 2) IF TF and Propofol weaned off, continuous Vital High Protein with 65 mL/hr goal rate to provide 1560 mL total volume/day, 1560 kcal, 137 g protein, and 1304 mL water 3) additional 150 mL water flush Q4H; monitor serum Na and adjust as appropriate 4) prealbumin q Friday/; daily scaled weights 5) Routine bowel care; 6 days constipation 6) DM education once stable following extubation, A1c 6.8% and no PMH of DM in EMR. Pt will need official DM dx by physician prior to RD education Addendum: 09/17/21 at [address] Amended: Links added.
[2021-09-17 13:53] LABS: PREALBUMIN 27.7 MG/DL (19-36)
[2021-09-17] MEDS: FENTANYL-0.9 % NACL/PF 100 ML IV PRN ×2 (14:36→21:15)
--- NOTE | 2021-09-17 15:16 | NUR ---
Per Primary RN, patient is unstable and wound care is unable to evaluate at this time.
[2021-09-17] MEDS ORDERED: acetaminophen 325mg tablet OGT PRN (15:57)
[2021-09-17] MEDS ORDERED: guaiFENesin/DM 10ml UD oral syrup OGT PRN (15:58)
[2021-09-17] MEDS ORDERED: dextrose ORAL solution 15 GM/59 ML bottle OGT PRN ×2 (15:58)
[2021-09-17] MEDS ORDERED: morphine 10mg/0.5ml (conc. morphine) oral syringe OGT PRN (15:59)
[2021-09-17] MEDS ORDERED: hydrOXYzine 25 MG tablet OGT PRN (15:59)
[2021-09-17] MEDS ORDERED: mag hydrox/Alum hydrox/simeth 30ml oral suspension OGT PRN (16:00)
[2021-09-17] MEDS ORDERED: magnesium hydroxide 30ml (MOM) UD suspension OGT PRN (16:00)
[2021-09-17] MEDS ORDERED: temazepam 15mg capsule OGT PRN (16:01)
[2021-09-17] MEDS: ascorbic acid 500mg tablet OGT SCH (18:06)
--- NOTE | 2021-09-17 18:31 | NUR ---
Problems reprioritized. Patient report given, questions answered & plan of care reviewed with JANINE Gandhi.
[2021-09-17] MEDS: docusate sodium 100mg/10ml UD cup OGT SCH (20:55)
[2021-09-17] MEDS: insulin glargine (Lantus) pen - multi-dose SQ SCH (21:00)
[2021-09-18] VITALS (24 sets, daily range): BP systolic 72–150; BP diastolic 42–87
[2021-09-18] MEDS: levalbuterol 0.63mg/3ml nebule IH SCH ×5 (02:36→19:45)
[2021-09-18 02:46] LABS: ABG BASE EXCESS -2.9 mmol/L (-2.0-2.0); ABG HCO3 21.7 mmol/L (22.0-26.0); ABG OXYGEN SATURATION 86.7 % (94-97); ABG PCO2 (T) 36.5 mmHg (32.0-45.0); ABG PO2 (T) 50.2 mmHg (75.0-100.0); FCOHb 0.7 % (0.0-3.9); FMetHb 0.3 % (0.0-1.5); FO2Hb 85.8 % (94-97); PATIENT TEMPERATURE 36.9; PEEP 11 cm H2O; RESPIRATORY RATE 18 b/min; TIDAL VOLUME 550 mL; TOTAL HEMOGLOBIN 11.1 G/dl (12.0-16.0)
[2021-09-18 03:48] LABS: BASOPHILS % (AUTO) 0.2 % (0-1); EOSINOPHILS # (AUTO) 0.2 X10'3 (0-0.9); EOSINOPHILS % (AUTO) 2.8 % (0-6); HEMATOCRIT 30.7 % (35.0-45.0); HEMOGLOBIN 10.2 g/dl (12.0-16.0); LYMPHOCYTES # (AUTO) 0.8 X10'3 (1.1-4.8); LYMPHOCYTES % (AUTO) 13.1 % (21-51); MEAN CORPUSCULAR HEMOGLOBIN 30.6 PG (27.0-31.0); MEAN CORPUSCULAR HGB CONC 33.3 g/dL (33.0-36.5); MEAN CORPUSCULAR VOLUME 91.7 FL (78-98); MEAN PLATELET VOLUME 9.4 FL (7.4-10.4); MONOCYTES # (AUTO) 0.2 X10'3 (0-0.9); MONOCYTES % (AUTO) 2.8 % (2-12); NEUTROPHILS # (AUTO) 5.1 X10'3 (1.8-7.7); NEUTROPHILS % (AUTO) 81.1 % (42-75); PLATELET COUNT 166 X10'3 (140-440); RED BLOOD COUNT 3.35 X10'6 (4.20-5.60); RED CELL DISTRIBUTION WIDTH 14.5 % (11.5-14.5); WHITE BLOOD COUNT 6.3 X10'3 (4.5-11.0)
[2021-09-18 03:57] LABS: D-DIMER 1.05 MG/L FEU (0-0.50)
[2021-09-18 04:00] LABS: ALANINE AMINOTRANSFERASE 39 U/L (12-78); ALBUMIN 1.9 G/DL (3.4-5.0); ALBUMIN/GLOBULIN RATIO 0.5 (1.1-1.5); ALKALINE PHOSPHATASE 56 IU/L (46-116); ANION GAP 8 (8-16); ASPARTATE AMINO TRANSFERASE 23 U/L (10-37); BILIRUBIN,TOTAL 0.3 MG/DL (0.1-1.0); BLOOD UREA NITROGEN 18 MG/DL (7-18); C-REACTIVE PROTEIN 0.25 MG/DL (0.0-0.5); CALCIUM 7.7 MG/DL (8.5-10.1); CHLORIDE 110 MMOL/L (99-107); CREATININE 0.62 MG/DL (0.40-0.90); GLUCOSE 71 MG/DL (70-104); LACTATE DEHYDROGENASE 550 U/L (81-234); MAGNESIUM 1.9 MG/DL (1.5-2.4); PHOSPHORUS 2.7 MG/DL (2.3-4.5); POTASSIUM 3.5 MMOL/L (3.5-5.1); SODIUM 143 MMOL/L (135-145); TOTAL CARBON DIOXIDE 25.3 MMOL/L (24-32); TOTAL PROTEIN 5.6 G/DL (6.4-8.2); eGFR > 90 ML/MIN
[2021-09-18] MEDS: FENTANYL-0.9 % NACL/PF 100 ML IV PRN ×4 (05:53→22:24)
[2021-09-18] MEDS: ringers solution, lacted 1,000 ML IV SCH (06:05)
--- NOTE | 2021-09-18 06:30 | NUR ---
Patient in room CICU 2008. I have received report from JANINE Gandhi and had the opportunity to ask questions and assume patient care.
[2021-09-18] MEDS: pantoprazole 40 MG vial IV SCH (07:24)
[2021-09-18] MEDS: zinc sulfate 220mg capsule PO SCH (07:24)
[2021-09-18] MEDS: micafungin inj 100 MG in normal saline 100ml IV soln 100 ML IV SCH (07:24)
[2021-09-18] MEDS: loratadine 10mg tablet OGT SCH (07:24)
[2021-09-18] MEDS: methylPREDNISolone sod succ/PF 40mg inj. IV SCH (07:24)
[2021-09-18] MEDS: enoxaparin 30mg/0.3ml syringe SUBCUT SCH ×2 (07:25→19:47)
[2021-09-18] MEDS: enoxaparin 80mg/0.8ml syringe SUBCUT SCH ×2 (07:25→19:47)
[2021-09-18] MEDS: docusate sodium 100mg/10ml UD cup OGT SCH ×2 (07:26→19:48)
[2021-09-18] MEDS ORDERED: VANCOMYCIN LEVEL IV ONE (07:30)
[2021-09-18] MEDS: K and/or MAG REPLACEMENT MC SCH ×2 (08:00→19:48)
[2021-09-18] MEDS: propofol 1000mg/100ml bottle 100 ML IV SCH ×3 (08:47→22:24)
[2021-09-18] MEDS: ascorbic acid 500mg tablet OGT SCH ×3 (08:47→18:14)
[2021-09-18] MEDS: vancomycin/NS 1 GM ADD-VANTAGE 250 ML IV SCH ×3 (08:50→16:54)
--- NOTE | 2021-09-18 09:00 | NUR ---
Pt hypoxic following oral care, SpO2 dropping into 70's. RT adjusting ventilator settings, PEEP increased to 15, FIO2 100% AC/ PRVC mode. Pt placed in prone position. Arterial line discontinued d/t some bruising at insertion site and infection risk, manual pressure held 5 mins.
[2021-09-18] MEDS: budesonide 0.5mg/2ml UD nebule IH SCH ×2 (09:39→19:45)
--- NOTE | 2021-09-18 10:16 | NUR ---
Pt's POA/ sister Hien called requesting extensive information on ventilator settings from the previous week. Call deferred to charge nurse JANINE Pelaez. Case Management to follow up. Pt remains hypoxic despite proning and maximal ventilatory support.
[2021-09-18] MEDS ORDERED: magnesium citrate 296ml oral solution PO ONE (11:45)
[2021-09-18] MEDS ORDERED: CISatracurium besylate inj. 100 MG in normal saline 100ml IV soln 90 ML IV PRN (11:45)
[2021-09-18] MEDS ORDERED: amiodarone 150mg/dext, iso-os 100 ML IV ONE (11:45)
--- NOTE | 2021-09-18 13:22 | NUR ---
F/u: Pt still with no BM since 09/11, receiving routine Colace with PRN bowel care available however not documented to be given, d/w MD at critical care rounds. Pt to receive one time dose of Mag Citrate today per MD. Propofol previously down to 6.545 mL/hr and MD okay with TF rate to be adjusted to maximize nutrition, however Propofol back up to 26.182 mL/hr providing ~691 kcal/day. Will continue to monitor Propofol rate and adjust TF recommendations as appropriate. Addendum: 09/18/21 at [address] Amended: Links added.
[2021-09-18] MEDS ORDERED: albumin (Human) 5% 250ml 250 ML IV ONE ×2 (14:55)
[2021-09-18] MEDS: amiodarone/D5 360MG/200ML BAG 200 ML IV SCH ×3 (16:33→23:53)
[2021-09-18] MEDS: insulin regular, human U-100 3ml vial - multi-dose SQ SCH (16:47)
--- NOTE | 2021-09-18 17:50 | NUR ---
Pt responded well to albumin and amiodarone. HR now 100 bpm, sinus tachycardia, BP 91/64 (71) on 0.05 mcg/kg/min levophed. SpO2 86% on A/C PRVC mode with FiO2 100% PEEP 18. Urine output improved. Pt's children allowed on unit and had opportunity to visit.
--- NOTE | 2021-09-18 18:18 | NUR ---
Problems reprioritized. Patient report given, questions answered & plan of care reviewed with JANINE Gandhi.
[2021-09-18] MEDS: insulin glargine (Lantus) pen - multi-dose SQ SCH (21:00)
[2021-09-19] VITALS (22 sets, daily range): BP systolic 86–141; BP diastolic 52–82
[2021-09-19] MEDS: ringers solution, lacted 1,000 ML IV SCH ×3 (02:05→22:05)
[2021-09-19] MEDS: propofol 1000mg/100ml bottle 100 ML IV SCH ×2 (02:21→05:37)
[2021-09-19] MEDS: vasopressin inj. 40 UNIT in normal saline 50ml IV soln 38 ML IV SCH (02:21)
[2021-09-19 02:25] LABS: ABG BASE EXCESS -4.4 mmol/L (-2.0-2.0); ABG HCO3 22.7 mmol/L (22.0-26.0); ABG OXYGEN SATURATION 95.4 % (94-97); ABG PCO2 (T) 51.1 mmHg (32.0-45.0); ABG PO2 (T) 83.6 mmHg (75.0-100.0); ALLEN'S TEST POSITIVE; FMetHb 0.2 % (0.0-1.5); FO2Hb 94.3 % (94-97); PATIENT TEMPERATURE 37.6; PEEP 18 cm H2O; RESPIRATORY RATE 18 b/min; TIDAL VOLUME 500 mL; TOTAL HEMOGLOBIN 12.2 G/dl (12.0-16.0)
[2021-09-19 03:15] LABS: BASOPHILS % (AUTO) 0.6 % (0-1); EOSINOPHILS # (AUTO) 0.3 X10'3 (0-0.9); EOSINOPHILS % (AUTO) 3.2 % (0-6); HEMATOCRIT 33.3 % (35.0-45.0); HEMOGLOBIN 10.9 g/dl (12.0-16.0); LYMPHOCYTES # (AUTO) 1.1 X10'3 (1.1-4.8); LYMPHOCYTES % (AUTO) 13.1 % (21-51); MEAN CORPUSCULAR HEMOGLOBIN 30.4 PG (27.0-31.0); MEAN CORPUSCULAR HGB CONC 32.9 g/dL (33.0-36.5); MEAN CORPUSCULAR VOLUME 92.5 FL (78-98); MONOCYTES # (AUTO) 0.3 X10'3 (0-0.9); MONOCYTES % (AUTO) 3.3 % (2-12); NEUTROPHILS # (AUTO) 6.8 X10'3 (1.8-7.7); NEUTROPHILS % (AUTO) 79.8 % (42-75); PLATELET COUNT 226 X10'3 (140-440); RED CELL DISTRIBUTION WIDTH 15.1 % (11.5-14.5); WHITE BLOOD COUNT 8.5 X10'3 (4.5-11.0)
[2021-09-19 03:26] LABS: D-DIMER 1.61 MG/L FEU (0-0.50)
[2021-09-19 03:29] LABS: ALANINE AMINOTRANSFERASE 167 U/L (12-78); ALBUMIN 2.7 G/DL (3.4-5.0); ALBUMIN/GLOBULIN RATIO 0.8 (1.1-1.5); ALKALINE PHOSPHATASE 78 IU/L (46-116); ANION GAP 8 (8-16); ASPARTATE AMINO TRANSFERASE 106 U/L (10-37); BILIRUBIN,TOTAL 0.3 MG/DL (0.1-1.0); BLOOD UREA NITROGEN 21 MG/DL (7-18); BUN/CREATININE RATIO 25.9 (6.6-38.0); C-REACTIVE PROTEIN 1.36 MG/DL (0.0-0.5); CALCIUM 7.7 MG/DL (8.5-10.1); CHLORIDE 111 MMOL/L (99-107); CREATININE 0.81 MG/DL (0.40-0.90); LACTATE DEHYDROGENASE 682 U/L (81-234); MAGNESIUM 2.7 MG/DL (1.5-2.4); PHOSPHORUS 3.6 MG/DL (2.3-4.5); POTASSIUM 3.6 MMOL/L (3.5-5.1); SODIUM 144 MMOL/L (135-145); TOTAL PROTEIN 6.3 G/DL (6.4-8.2); eGFR 73 ML/MIN
[2021-09-19 03:37] LABS: GLUCOSE 95 MG/DL (70-104)
[2021-09-19] MEDS: NORepinephrine 8mg/ 250ml NS 250 ML IV SCH ×3 (04:10→23:00)
[2021-09-19 04:24] LABS: PLATELET ESTIMATE NORMAL; TOTAL CELLS COUNTED 100
[2021-09-19 04:25] LABS: POLYCHROMASIA FEW; STOMATOCYTES FEW
[2021-09-19 04:26] LABS: LARGE PLATELETS FEW
[2021-09-19] MEDS: FENTANYL-0.9 % NACL/PF 100 ML IV PRN (05:37)
[2021-09-19] MEDS ORDERED: VANCOMYCIN LEVEL IV ONE (07:30)
[2021-09-19] MEDS: vancomycin/NS 1 GM ADD-VANTAGE 250 ML IV SCH ×2 (08:00)
[2021-09-19] MEDS: docusate sodium 100mg/10ml UD cup OGT SCH ×2 (08:00→20:26)
[2021-09-19] MEDS: pantoprazole 40 MG vial IV SCH (08:23)
[2021-09-19] MEDS: methylPREDNISolone sod succ/PF 40mg inj. IV SCH (08:23)
[2021-09-19] MEDS: enoxaparin 30mg/0.3ml syringe SUBCUT SCH ×2 (08:24→20:25)
[2021-09-19] MEDS: enoxaparin 80mg/0.8ml syringe SUBCUT SCH ×2 (08:24→20:25)
[2021-09-19] MEDS: zinc sulfate 220mg capsule PO SCH (08:25)
[2021-09-19] MEDS: micafungin inj 100 MG in normal saline 100ml IV soln 100 ML IV SCH (08:25)
[2021-09-19] MEDS: loratadine 10mg tablet OGT SCH (08:25)
[2021-09-19] MEDS: levalbuterol 0.63mg/3ml nebule IH SCH ×3 (08:50→19:07)
[2021-09-19] MEDS: budesonide 0.5mg/2ml UD nebule IH SCH ×2 (08:50→19:07)
[2021-09-19] MEDS ORDERED: midazolam 100mg in NS 100ml 50 ML IV SCH (09:00)
[2021-09-19] MEDS: midazolam 100mg in NS 100ml 100 ML IV SCH ×2 (09:10→22:45)
[2021-09-19] MEDS: ascorbic acid 500mg tablet OGT SCH ×3 (09:10→17:58)
[2021-09-19] MEDS: amiodarone/D5 360MG/200ML BAG 200 ML IV SCH ×4 (10:22→21:05)
[2021-09-19] MEDS ORDERED: midazolam 100mg in NS 100 ML INFUSION IV PRN (11:05)
--- NOTE | 2021-09-19 13:48 | NUR ---
F/u: Noted Propofol has been discontinued. TF recommendations have been adjusted accordingly and d/w chain repairer. Recommendations: 1) Continuous TF via OGT using Vital High Protein at 65 mL/hr goal rate to provide 1560 mL total volume/day, 1560 kcal, 137 g protein, and 1304 mL water; Adjust if Propofol is resumed 2) Additional 150 mL water flush Q4H; monitor serum Na and adjust as appropriate 3) Prealbumin q Friday/; daily scaled weights 4) Routine bowel care; 8 days constipation 5) DM education once stable following extubation, A1c 6.8% and no PMH of DM in EMR. Pt will need official DM dx by physician prior to RD education Addendum: 09/19/21 at [address] Amended: Links added.
[2021-09-19] MEDS ORDERED: vancomycin/NS 1 GM ADD-VANTAGE 250 ML IV SCH (14:00)
[2021-09-19] MEDS ORDERED: ondansetron 4mg rapidly disintigrating tab PO PRN (14:55)
--- NOTE | 2021-09-19 18:39 | NUR ---
[facility]. I have received report from Buster MEHTA and had the opportunity to ask questions and assume patient care. Addendum: 09/19/21 at 1840 by Melissa Ambrose RN Amended: Links added.
[2021-09-19] MEDS: K and/or MAG REPLACEMENT MC SCH (20:00)
--- NOTE | 2021-09-19 20:00 | NUR ---
Patient in prone position. HOB 10 degrees reverse Trendelenburg Addendum: 09/20/21 at 0119 by Melissa Ambrose RN Amended: Links added.
[2021-09-19] MEDS: insulin glargine (Lantus) pen - multi-dose SQ SCH (20:27)
[2021-09-20] VITALS (23 sets, daily range): BP systolic 90–125; BP diastolic 55–80
[2021-09-20] MEDS: FENTANYL-0.9 % NACL/PF 100 ML IV PRN ×6 (00:51→23:04)
--- NOTE | 2021-09-20 01:45 | NUR ---
Late entry: 2315: Placed patient in supine position with 6 person assist without incident. Patient tolerating position well. Abrasions noted on patient's L cheek, L upper lip and L upper thigh. Bleeding noted coming from abrasion on L upper lip. Oral care provided, mouth moisturizer applied. Oral secretions bloody or brown and foul smelling. Hydrophilic dressing applied to L cheek and thigh abrasion. See photos for further. Wound care consult ordered. Will continue to monitor.
[2021-09-20] MEDS: levalbuterol 0.63mg/3ml nebule IH SCH ×4 (02:54→22:51)
[2021-09-20 03:05] LABS: ABG HCO3 26.1 mmol/L (22.0-26.0); ABG OXYGEN SATURATION 94.4 % (94-97); ABG PCO2 (T) 49.6 mmHg (32.0-45.0); ABG PO2 (T) 76.5 mmHg (75.0-100.0); ALLEN'S TEST POSITIVE; FCOHb 0.7 % (0.0-3.9); FO2Hb 93.7 % (94-97); PATIENT TEMPERATURE 37.3; PEEP 18 cm H2O; RESPIRATORY RATE 26 b/min; TIDAL VOLUME 400 mL; TOTAL HEMOGLOBIN 11.8 G/dl (12.0-16.0)
[2021-09-20] MEDS ORDERED: vancomycin/NS 1 GM ADD-VANTAGE 250 ML IV SCH (03:11)
[2021-09-20 04:14] LABS: BASOPHILS % (AUTO) 0.5 % (0-1); EOSINOPHILS # (AUTO) 0.6 X10'3 (0-0.9); EOSINOPHILS % (AUTO) 6.6 % (0-6); HEMATOCRIT 32.8 % (35.0-45.0); HEMOGLOBIN 10.9 g/dl (12.0-16.0); LYMPHOCYTES # (AUTO) 0.7 X10'3 (1.1-4.8); LYMPHOCYTES % (AUTO) 8.2 % (21-51); MEAN CORPUSCULAR HEMOGLOBIN 30.5 PG (27.0-31.0); MEAN CORPUSCULAR HGB CONC 33.2 g/dL (33.0-36.5); MEAN CORPUSCULAR VOLUME 91.9 FL (78-98); MEAN PLATELET VOLUME 9.6 FL (7.4-10.4); MONOCYTES # (AUTO) 0.1 X10'3 (0-0.9); MONOCYTES % (AUTO) 1.2 % (2-12); NEUTROPHILS # (AUTO) 7.2 X10'3 (1.8-7.7); NEUTROPHILS % (AUTO) 83.5 % (42-75); PLATELET COUNT 204 X10'3 (140-440); RED BLOOD COUNT 3.57 X10'6 (4.20-5.60); RED CELL DISTRIBUTION WIDTH 14.9 % (11.5-14.5); WHITE BLOOD COUNT 8.6 X10'3 (4.5-11.0)
[2021-09-20 04:34] LABS: ALANINE AMINOTRANSFERASE 127 U/L (12-78); ALBUMIN 2.3 G/DL (3.4-5.0); ALBUMIN/GLOBULIN RATIO 0.6 (1.1-1.5); ALKALINE PHOSPHATASE 78 IU/L (46-116); ANION GAP 6 (8-16); ASPARTATE AMINO TRANSFERASE 51 U/L (10-37); BILIRUBIN,TOTAL 0.3 MG/DL (0.1-1.0); BLOOD UREA NITROGEN 14 MG/DL (7-18); BUN/CREATININE RATIO 24.6 (6.6-38.0); CHLORIDE 109 MMOL/L (99-107); CREATININE 0.57 MG/DL (0.40-0.90); GLUCOSE 93 MG/DL (70-104); MAGNESIUM 2.1 MG/DL (1.5-2.4); POTASSIUM 3.7 MMOL/L (3.5-5.1); PREALBUMIN 24.9 MG/DL (19-36); SODIUM 143 MMOL/L (135-145); TOTAL CARBON DIOXIDE 27.7 MMOL/L (24-32); eGFR > 90 ML/MIN
[2021-09-20] MEDS ORDERED: metoclopramide 5 mg/ml inj IV PRN (04:55)
[2021-09-20] MEDS ORDERED: magnesium hydroxide 30ml (MOM) UD suspension PO ONE (04:55)
[2021-09-20] MEDS ORDERED: potassium phosphate inj 15 MMOL in normal saline 250ml IV soln 250 ML IV ONE (05:00)
[2021-09-20] MEDS: amiodarone/D5 360MG/200ML BAG 200 ML IV SCH ×3 (06:13→19:25)
--- NOTE | 2021-09-20 06:25 | NUR ---
Problems reprioritized. Patient report given, questions answered & plan of care reviewed with Alicia MEHTA.
[2021-09-20] MEDS: albumin (human) 25% 100 ML IV solution IV SCH ×2 (07:30→15:00)
[2021-09-20] MEDS: budesonide 0.5mg/2ml UD nebule IH SCH ×2 (07:34→22:51)
[2021-09-20] MEDS: micafungin inj 100 MG in normal saline 100ml IV soln 100 ML IV SCH (07:44)
[2021-09-20] MEDS: loratadine 10mg tablet OGT SCH (07:45)
[2021-09-20] MEDS: zinc sulfate 220mg capsule PO SCH (07:45)
[2021-09-20] MEDS: enoxaparin 80mg/0.8ml syringe SUBCUT SCH (07:45)
[2021-09-20] MEDS: enoxaparin 30mg/0.3ml syringe SUBCUT SCH (07:45)
[2021-09-20] MEDS: pantoprazole 40 MG vial IV SCH (07:46)
[2021-09-20] MEDS: methylPREDNISolone sod succ/PF 40mg inj. IV SCH (07:46)
[2021-09-20] MEDS: K and/or MAG REPLACEMENT MC SCH (08:00)
[2021-09-20] MEDS: docusate sodium 100mg/10ml UD cup OGT SCH ×2 (08:00→20:00)
[2021-09-20] MEDS: ascorbic acid 500mg tablet OGT SCH ×2 (08:30→12:30)
[2021-09-20] MEDS: vancomycin inj. 750 MG in normal saline 250ml IV soln 250 ML IV SCH ×2 (08:54→16:00)
[2021-09-20] MEDS: midazolam 100mg in NS 100ml 100 ML IV SCH ×3 (09:47→21:36)
--- NOTE | 2021-09-20 11:34 | NUR ---
Reassessment: Pt remains intubated. Noted TF has never been increased to new goal rate and pt documented to have 500 mL GRV at 20:00 on 09/19. F/u GRV were WNL at 250 mL and 10 mL. TC to RN who reports TF has been off since last night. RD recommended resuming TF given resolution in elevated GRVs. LBM 09/11. Pt has received multiple interventions for constipation and continues with routine Colace and PRN bowel care. Pt did receive one time dose of MoM 09/20. Will continue to follow closely. Recommendations: 1) Continuous TF via OGT using Vital High Protein at 65 mL/hr goal rate to provide 1560 mL total volume/day, 1560 kcal, 137 g protein, and 1304 mL water; Adjust if Propofol is resumed 2) Additional 150 mL water flush Q4H; monitor serum Na and adjust as appropriate 3) Prealbumin q Friday/; daily scaled weights 4) Routine bowel care; consider additional with 9 days constipation 5) DM education once stable following extubation, A1c 6.8% and no PMH of DM in EMR. Pt will need official DM dx by physician prior to RD education Addendum: 09/20/21 at [address] Amended: Links added.
[2021-09-20] MEDS: vasopressin inj. 40 UNIT in normal saline 50ml IV soln 38 ML IV SCH (11:45)
[2021-09-20] MEDS ORDERED: albumin (Human) 5% 250ml 250 ML IV ONE ×2 (12:45→12:48)
[2021-09-20] MEDS: acetaminophen 650mg rectal suppository RC PRN (13:45)
[2021-09-20] MEDS: insulin regular, human U-100 3ml vial - multi-dose SQ SCH ×2 (14:22→22:11)
[2021-09-20] MEDS: NORepinephrine 8mg/ 250ml NS 250 ML IV SCH ×2 (14:24→21:34)
--- NOTE | 2021-09-20 15:15 | NUR ---
pt has dark valadez thick oral secretions
[2021-09-20] MEDS: ringers solution, lacted 1,000 ML IV SCH (21:31)
[2021-09-20] MEDS: enoxaparin 100mg/ml syringe SUBCUT SCH (21:32)
[2021-09-20] MEDS: insulin glargine (Lantus) pen - multi-dose SQ SCH (22:15)
[2021-09-21] VITALS (34 sets, daily range): BP systolic 103–138; BP diastolic 64–83
[2021-09-21] MEDS: ringers solution, lacted 1,000 ML IV SCH ×2 (02:41→22:41)
[2021-09-21] MEDS: FENTANYL-0.9 % NACL/PF 100 ML IV PRN ×5 (02:42→21:29)
[2021-09-21] MEDS: levalbuterol 0.63mg/3ml nebule IH SCH ×4 (02:50→23:10)
[2021-09-21 05:05] LABS: ABG BASE EXCESS -1.6 mmol/L (-2.0-2.0); ABG HCO3 23.1 mmol/L (22.0-26.0); ABG OXYGEN SATURATION 95.2 % (94-97); ABG PCO2 (T) 42.2 mmHg (32.0-45.0); ABG PO2 (T) 85.1 mmHg (75.0-100.0); FCOHb 0.3 % (0.0-3.9); FO2Hb 94.9 % (94-97); PATIENT TEMPERATURE 38.9; PEEP 18 cm H2O; RESPIRATORY RATE 26 b/min; TIDAL VOLUME 400 mL
[2021-09-21] MEDS: albumin (human) 25% 100 ML IV solution IV SCH ×3 (07:00→23:00)
[2021-09-21 07:12] LABS: EOSINOPHILS # (AUTO) 0.2 X10'3 (0-0.9); LYMPHOCYTES # (AUTO) 1.1 X10'3 (1.1-4.8)
[2021-09-21 07:14] LABS: BASOPHILS % (AUTO) 0.5 % (0-1); EOSINOPHILS % (AUTO) 2.1 % (0-6); HEMOGLOBIN 10.3 g/dl (12.0-16.0); LYMPHOCYTES % (AUTO) 15.9 % (21-51); MEAN CORPUSCULAR HEMOGLOBIN 30.7 PG (27.0-31.0); MEAN CORPUSCULAR HGB CONC 33.3 g/dL (33.0-36.5); MEAN CORPUSCULAR VOLUME 92.3 FL (78-98); MEAN PLATELET VOLUME 9.5 FL (7.4-10.4); MONOCYTES # (AUTO) 0.1 X10'3 (0-0.9); MONOCYTES % (AUTO) 1.8 % (2-12); NEUTROPHILS # (AUTO) 5.7 X10'3 (1.8-7.7); NEUTROPHILS % (AUTO) 79.7 % (42-75); PLATELET COUNT 217 X10'3 (140-440); RED BLOOD COUNT 3.36 X10'6 (4.20-5.60); RED CELL DISTRIBUTION WIDTH 15.9 % (11.5-14.5); WHITE BLOOD COUNT 7.2 X10'3 (4.5-11.0)
[2021-09-21 07:29] LABS: ALBUMIN 2.5 G/DL (3.4-5.0); ALBUMIN/GLOBULIN RATIO 0.7 (1.1-1.5); ALKALINE PHOSPHATASE 165 IU/L (46-116); ANION GAP 7 (8-16); ASPARTATE AMINO TRANSFERASE 830 U/L (10-37); BILIRUBIN,TOTAL 0.3 MG/DL (0.1-1.0); BLOOD UREA NITROGEN 19 MG/DL (7-18); BUN/CREATININE RATIO 24.4 (6.6-38.0); CALCIUM 7.6 MG/DL (8.5-10.1); CHLORIDE 114 MMOL/L (99-107); CREATININE 0.78 MG/DL (0.40-0.90); GLUCOSE 149 MG/DL (70-104); MAGNESIUM 2.2 MG/DL (1.5-2.4); PHOSPHORUS 1.8 MG/DL (2.3-4.5); SODIUM 147 MMOL/L (135-145); TOTAL CARBON DIOXIDE 26.4 MMOL/L (24-32); TOTAL PROTEIN 6.3 G/DL (6.4-8.2); eGFR 76 ML/MIN
[2021-09-21] MEDS ORDERED: VANCOMYCIN LEVEL IV ONE ×3 (07:30→23:30)
[2021-09-21] MEDS: K and/or MAG REPLACEMENT MC SCH ×2 (08:00→20:00)
[2021-09-21 08:10] LABS: NUCLEATED RED BLOOD CELLS 7 /100WBC (0-0); TOTAL CELLS COUNTED 100
[2021-09-21 08:11] LABS: PLATELET ESTIMATE NORMAL; POLYCHROMASIA FEW
[2021-09-21] MEDS: methylPREDNISolone sod succ/PF 40mg inj. IV SCH ×2 (08:16→22:09)
[2021-09-21] MEDS: loratadine 10mg tablet OGT SCH (08:16)
[2021-09-21] MEDS: ascorbic acid 500mg tablet OGT SCH ×4 (08:16→16:55)
[2021-09-21] MEDS: vancomycin inj. 750 MG in normal saline 250ml IV soln 250 ML IV SCH ×3 (08:16→16:16)
[2021-09-21] MEDS: pantoprazole 40 MG vial IV SCH (08:16)
[2021-09-21] MEDS: docusate sodium 100mg/10ml UD cup OGT SCH ×2 (08:17→20:00)
[2021-09-21] MEDS: enoxaparin 100mg/ml syringe SUBCUT SCH ×2 (08:17→22:08)
[2021-09-21] MEDS: zinc sulfate 220mg capsule PO SCH (08:17)
[2021-09-21] MEDS: budesonide 0.5mg/2ml UD nebule IH SCH ×2 (08:19→23:10)
[2021-09-21 08:22] LABS: ALANINE AMINOTRANSFERASE 1159 U/L (12-78)
[2021-09-21] MEDS: insulin regular, human U-100 3ml vial - multi-dose SQ SCH ×3 (09:32→22:02)
[2021-09-21 09:51] LABS: VANCOMYCIN,TROUGH 14.8 UG/ML (6.0-14.0)
[2021-09-21 10:43] LABS: CLARITY,URINE SLIGHTLY CLOUDY (Clear); COLOR,URINE STRAW (Yellow); GLUCOSE, URINE NEGATIVE (Neg); KETONES,URINE NEGATIVE (Neg); LEUKOCYTE ESTERASE ,URINE NEGATIVE (Neg); NITRITES, URINE NEGATIVE (Neg); OCCULT BLOOD,URINE TRACE-LYSED (Neg); PROTEIN,URINE TRACE mg/dl (Neg); UA COLLECTION TYPE NON-SPECIFIED; UROBILINOGEN,URINE 0.2 E.U/dL (0.2-1.0)
[2021-09-21 10:48] LABS: BACTERIA,URINE 1+ /HPF (Neg); COARSE GRANULAR CAST 0-3 /LPF (NEGATIVE); MUCUS STRANDS NONE SEEN /LPF (Neg); RBC,URINE 0-2 /HPF (0-2); SQUAMOUS EPITHELIAL CELL,UR FEW /LPF (FEW); TRANSITIONAL EPI CELLS,URINE MODERATE /HPF; WBC,URINE 0-4 /HPF (0-4)
[2021-09-21] MEDS: NORepinephrine 8mg/ 250ml NS 250 ML IV SCH ×2 (10:53→16:43)
[2021-09-21] MEDS ORDERED: magnesium citrate 296ml oral solution PO ONE (12:00)
[2021-09-21] MEDS: midazolam 100mg in NS 100ml 100 ML IV SCH (14:57)
[2021-09-21] MEDS: amiodarone/D5 360MG/200ML BAG 200 ML IV SCH ×2 (15:18→18:37)
[2021-09-21] MEDS: insulin glargine (Lantus) pen - multi-dose SQ SCH (22:04)
[2021-09-22] VITALS (24 sets, daily range): BP systolic 99–148; BP diastolic 60–86
[2021-09-22] MEDS: amiodarone/D5 360MG/200ML BAG 200 ML IV SCH ×6 (00:41→18:53)
[2021-09-22] MEDS: vancomycin inj. 750 MG in normal saline 250ml IV soln 250 ML IV SCH ×2 (00:53→11:02)
[2021-09-22] MEDS: midazolam 100mg in NS 100ml 100 ML IV SCH ×2 (00:54→21:24)
[2021-09-22] MEDS: NORepinephrine 8mg/ 250ml NS 250 ML IV SCH ×3 (00:56→16:37)
[2021-09-22] MEDS: levalbuterol 0.63mg/3ml nebule IH SCH ×4 (02:45→21:00)
[2021-09-22 03:26] LABS: ABG BASE EXCESS 0.3 mmol/L (-2.0-2.0); ABG HCO3 26.4 mmol/L (22.0-26.0); ABG OXYGEN SATURATION 94.6 % (94-97); ABG PCO2 (T) 55.6 mmHg (32.0-45.0); ABG PO2 (T) 89.4 mmHg (75.0-100.0); ALLEN'S TEST POSITIVE; FCOHb 0.9 % (0.0-3.9); FMetHb 0.2 % (0.0-1.5); FO2Hb 93.6 % (94-97); PATIENT TEMPERATURE 39.9; PEEP 18 cm H2O; RESPIRATORY RATE 26 b/min; TIDAL VOLUME 400 mL
[2021-09-22] MEDS: FENTANYL-0.9 % NACL/PF 100 ML IV PRN ×4 (05:55→20:03)
--- NOTE | 2021-09-22 06:30 | NUR ---
Received report from JANINE Leyva
[2021-09-22] MEDS: albumin (human) 25% 100 ML IV solution IV SCH (07:00)
[2021-09-22] MEDS: enoxaparin 100mg/ml syringe SUBCUT SCH ×2 (08:00→21:26)
[2021-09-22] MEDS: docusate sodium 100mg/10ml UD cup OGT SCH ×2 (08:00→20:00)
[2021-09-22] MEDS: K and/or MAG REPLACEMENT MC SCH ×2 (08:00→20:00)
[2021-09-22] MEDS: budesonide 0.5mg/2ml UD nebule IH SCH ×2 (08:45→22:12)
[2021-09-22 08:52] LABS: BASOPHILS % (AUTO) 0.3 % (0-1); LYMPHOCYTES # (AUTO) 0.7 X10'3 (1.1-4.8); MEAN CORPUSCULAR HEMOGLOBIN 30.7 PG (27.0-31.0); MONOCYTES # (AUTO) 0.2 X10'3 (0-0.9); RED CELL DISTRIBUTION WIDTH 16.2 % (11.5-14.5)
[2021-09-22 08:56] LABS: EOSINOPHILS % (AUTO) 0.1 % (0-6); HEMOGLOBIN 9.9 g/dl (12.0-16.0); LYMPHOCYTES % (AUTO) 10.4 % (21-51); MEAN CORPUSCULAR HGB CONC 32.9 g/dL (33.0-36.5); MEAN CORPUSCULAR VOLUME 93.2 FL (78-98); MEAN PLATELET VOLUME 9.4 FL (7.4-10.4); MONOCYTES % (AUTO) 2.6 % (2-12); NEUTROPHILS # (AUTO) 5.8 X10'3 (1.8-7.7); NEUTROPHILS % (AUTO) 86.6 % (42-75); PLATELET COUNT 174 X10'3 (140-440); RED BLOOD COUNT 3.22 X10'6 (4.20-5.60); WHITE BLOOD COUNT 6.6 X10'3 (4.5-11.0)
[2021-09-22 09:24] LABS: ALANINE AMINOTRANSFERASE 931 U/L (12-78); ALBUMIN 2.8 G/DL (3.4-5.0); ALBUMIN/GLOBULIN RATIO 0.8 (1.1-1.5); ALKALINE PHOSPHATASE 121 IU/L (46-116); ANION GAP 4 (8-16); ASPARTATE AMINO TRANSFERASE 343 U/L (10-37); BILIRUBIN,TOTAL 0.3 MG/DL (0.1-1.0); BLOOD UREA NITROGEN 21 MG/DL (7-18); BUN/CREATININE RATIO 27.6 (6.6-38.0); CALCIUM 7.9 MG/DL (8.5-10.1); CHLORIDE 114 MMOL/L (99-107); CREATININE 0.76 MG/DL (0.40-0.90); GLUCOSE 243 MG/DL (70-104); MAGNESIUM 2.4 MG/DL (1.5-2.4); POTASSIUM 4.1 MMOL/L (3.5-5.1); SODIUM 147 MMOL/L (135-145); TOTAL CARBON DIOXIDE 28.8 MMOL/L (24-32); TOTAL PROTEIN 6.5 G/DL (6.4-8.2); eGFR 79 ML/MIN
[2021-09-22 09:26] LABS: PHOSPHORUS 1.1 MG/DL (2.3-4.5)
[2021-09-22] MEDS: insulin regular, human U-100 3ml vial - multi-dose SQ SCH ×3 (10:11→20:50)
[2021-09-22] MEDS ORDERED: potassium phosphate inj 15 MMOL in dextrose 5%-water 250 ML IV PRN (10:15)
[2021-09-22] MEDS ORDERED: potassium phosphate inj 30 MMOL in dextrose 5%-water 250 ML IV PRN (10:15)
[2021-09-22] MEDS: pantoprazole 40 MG vial IV SCH (11:02)
[2021-09-22] MEDS: methylPREDNISolone sod succ/PF 40mg inj. IV SCH ×2 (11:02→21:27)
[2021-09-22] MEDS: zinc sulfate 220mg capsule PO SCH (11:03)
[2021-09-22] MEDS: loratadine 10mg tablet OGT SCH (11:03)
[2021-09-22] MEDS: ascorbic acid 500mg tablet OGT SCH ×3 (11:03→17:45)
[2021-09-22] MEDS: vasopressin inj. 40 UNIT in normal saline 50ml IV soln 38 ML IV SCH (11:45)
[2021-09-22 11:59] LABS: ANISOCYTOSIS 1+; NUCLEATED RED BLOOD CELLS 6 /100WBC (0-0); PLATELET ESTIMATE NORMAL; POLYCHROMASIA 2+; TOTAL CELLS COUNTED 100
[2021-09-22] MEDS: cefepime 1GM in D5W 50mL 100 ML IV SCH ×2 (14:55→21:27)
[2021-09-22] MEDS ORDERED: acetaminophen 1,000mg/100ml IV 100 ML IV ONE (15:00)
--- NOTE | 2021-09-22 18:30 | NUR ---
Report given to JANINE Leyva
[2021-09-22] MEDS: ringers solution, lacted 1,000 ML IV SCH (18:41)
[2021-09-22] MEDS: insulin glargine (Lantus) pen - multi-dose SQ SCH (20:52)
[2021-09-23] VITALS (24 sets, daily range): BP systolic 96–125; BP diastolic 56–77
[2021-09-23] MEDS: amiodarone/D5 360MG/200ML BAG 200 ML IV SCH ×4 (00:57→19:09)
[2021-09-23] MEDS: levalbuterol 0.63mg/3ml nebule IH SCH ×4 (02:12→19:36)
[2021-09-23 03:54] LABS: ABG BASE EXCESS 4.3 mmol/L (-2.0-2.0); ABG HCO3 28.8 mmol/L (22.0-26.0); ABG OXYGEN SATURATION 94.7 % (94-97); ABG PCO2 (T) 45.2 mmHg (32.0-45.0); ABG PO2 (T) 75.3 mmHg (75.0-100.0); ALLEN'S TEST POSITIVE; FCOHb 0.8 % (0.0-3.9); FMetHb 0.3 % (0.0-1.5); FO2Hb 93.7 % (94-97); PATIENT TEMPERATURE 38.2; PEEP 16 cm H2O; RESPIRATORY RATE 26 b/min; TIDAL VOLUME 400 mL; TOTAL HEMOGLOBIN 10.4 G/dl (12.0-16.0)
[2021-09-23] MEDS: insulin regular, human U-100 3ml vial - multi-dose SQ SCH ×3 (04:20→21:25)
[2021-09-23] MEDS: acetaminophen 325mg tablet OGT PRN (04:25)
[2021-09-23] MEDS: FENTANYL-0.9 % NACL/PF 100 ML IV PRN ×2 (04:27→14:26)
--- NOTE | 2021-09-23 06:30 | NUR ---
Patient in room CICU 2008. I have received report from and had the opportunity to ask questions and assume patient care.
[2021-09-23] MEDS: K and/or MAG REPLACEMENT MC SCH ×2 (08:00→20:00)
[2021-09-23] MEDS: docusate sodium 100mg/10ml UD cup OGT SCH ×2 (08:00→21:03)
--- NOTE | 2021-09-23 08:04 | NUR ---
Reassessment: Pt remains intubated and sedated. Continues to receive TF at goal of Vital High Protein at 65ml/hr. LBM documented 09/11, pt receiving routine colace though not receiving PRN bowel care, d/w RN if pt needs additional bowel care. No change to nutrition intervention at this time, will continue to monitor. Recommendations: 1) Continuous TF via OGT using Vital High Protein at 65 mL/hr goal rate to provide 1560 mL total volume/day, 1560 kcal, 137 g protein, and 1304 mL water; Adjust if Propofol is resumed 2) Additional 150 mL water flush Q4H; monitor serum Na and adjust as appropriate 3) Prealbumin q Friday/; daily scaled weights 4) Routine bowel care; consider additional with 12 days constipation 5) DM education once stable following extubation, A1c 6.8% and no PMH of DM in EMR. Pt will need official DM dx by physician prior to RD education Addendum: 09/23/21 at [address] Amended: Links added.
[2021-09-23] MEDS: budesonide 0.5mg/2ml UD nebule IH SCH ×2 (09:03→19:35)
[2021-09-23] MEDS: NORepinephrine 8mg/ 250ml NS 250 ML IV SCH ×3 (09:17→21:10)
[2021-09-23] MEDS: cefepime 1GM in D5W 50mL 100 ML IV SCH (09:24)
[2021-09-23] MEDS: methylPREDNISolone sod succ/PF 40mg inj. IV SCH ×2 (09:26→21:02)
[2021-09-23] MEDS: ascorbic acid 500mg tablet OGT SCH ×3 (09:26→17:21)
[2021-09-23] MEDS: loratadine 10mg tablet OGT SCH (09:26)
[2021-09-23] MEDS: pantoprazole 40 MG vial IV SCH (09:26)
[2021-09-23] MEDS: zinc sulfate 220mg capsule PO SCH (09:26)
[2021-09-23] MEDS: micafungin inj 100 MG in normal saline 100ml IV soln 100 ML IV SCH (09:26)
[2021-09-23] MEDS: enoxaparin 100mg/ml syringe SUBCUT SCH ×2 (09:27→21:03)
[2021-09-23 11:14] LABS: D-DIMER 0.82 MG/L FEU (0-0.50)
[2021-09-23 11:17] LABS: ALANINE AMINOTRANSFERASE 735 U/L (12-78); ALBUMIN 2.5 G/DL (3.4-5.0); ALBUMIN/GLOBULIN RATIO 0.7 (1.1-1.5); ALKALINE PHOSPHATASE 93 IU/L (46-116); ANION GAP 5 (8-16); ASPARTATE AMINO TRANSFERASE 144 U/L (10-37); BILIRUBIN,TOTAL 0.4 MG/DL (0.1-1.0); BLOOD UREA NITROGEN 27 MG/DL (7-18); BUN/CREATININE RATIO 40.3 (6.6-38.0); CALCIUM 7.7 MG/DL (8.5-10.1); CHLORIDE 112 MMOL/L (99-107); CREATININE 0.67 MG/DL (0.40-0.90); GLUCOSE 165 MG/DL (70-104); MAGNESIUM 2.4 MG/DL (1.5-2.4); PHOSPHORUS 1.5 MG/DL (2.3-4.5); POTASSIUM 4.4 MMOL/L (3.5-5.1); SODIUM 148 MMOL/L (135-145); TOTAL CARBON DIOXIDE 30.6 MMOL/L (24-32); eGFR > 90 ML/MIN
[2021-09-23 12:32] LABS: MONOCYTES # (AUTO) 0.4 X10'3 (0-0.9); RED BLOOD COUNT 3.05 X10'6 (4.20-5.60)
[2021-09-23 12:33] LABS: BASOPHILS % (AUTO) 0.3 % (0-1); EOSINOPHILS % (AUTO) 0 % (0-6); HEMATOCRIT 28.6 % (35.0-45.0); HEMOGLOBIN 9.4 g/dl (12.0-16.0); LYMPHOCYTES # (AUTO) 0.7 X10'3 (1.1-4.8); LYMPHOCYTES % (AUTO) 10.1 % (21-51); MEAN CORPUSCULAR HEMOGLOBIN 30.7 PG (27.0-31.0); MEAN CORPUSCULAR HGB CONC 32.8 g/dL (33.0-36.5); MEAN CORPUSCULAR VOLUME 93.6 FL (78-98); NEUTROPHILS % (AUTO) 84.6 % (42-75); PLATELET COUNT 134 X10'3 (140-440); RED CELL DISTRIBUTION WIDTH 16.3 % (11.5-14.5); WHITE BLOOD COUNT 7.1 X10'3 (4.5-11.0)
[2021-09-23 13:15] LABS: ANISOCYTOSIS 1+; NUCLEATED RED BLOOD CELLS 11 /100WBC (0-0); PLATELET ESTIMATE DECREASED; TOTAL CELLS COUNTED 100
[2021-09-23 13:20] LABS: POLYCHROMASIA 2+; TEAR DROP CELLS 1+
[2021-09-23] MEDS: ringers solution, lacted 1,000 ML IV SCH (14:41)
[2021-09-23] MEDS: midazolam 100mg in NS 100ml 100 ML IV SCH (18:44)
--- NOTE | 2021-09-23 18:50 | NUR ---
Problems reprioritized. Patient report given, questions answered & plan of care reviewed with virgen MEHTA.
--- NOTE | 2021-09-23 19:03 | NUR ---
Patient in room CICU 2008. I have received report from Sendy MEHTA and had the opportunity to ask questions and assume patient care. Out of ratio per [place] nurse to patient ratio law, currently assigned 3 ICU patients on ventilators, multiple titratable IV drips, including 2 of the patients being on vasopressors. Addendum: 09/23/21 at 1908 by Melissa Ambrose RN Amended: Links added.
[2021-09-23] MEDS ORDERED: cefepime 1GM in D5W 50mL 50 ML IV SCH (20:57)
[2021-09-23] MEDS: insulin glargine (Lantus) pen - multi-dose SQ SCH (21:26)
[2021-09-24] VITALS (24 sets, daily range): BP systolic 92–120; BP diastolic 45–77
[2021-09-24] MEDS: FENTANYL-0.9 % NACL/PF 100 ML IV PRN ×3 (00:17→17:59)
[2021-09-24] MEDS: amiodarone/D5 360MG/200ML BAG 200 ML IV SCH ×2 (01:22→07:17)
[2021-09-24] MEDS: levalbuterol 0.63mg/3ml nebule IH SCH ×4 (02:09→20:27)
[2021-09-24] MEDS: insulin regular, human U-100 3ml vial - multi-dose SQ SCH ×3 (03:02→20:48)
[2021-09-24 03:23] LABS: BASOPHILS % (AUTO) 0.2 % (0-1); EOSINOPHILS % (AUTO) 0 % (0-6); HEMOGLOBIN 8.9 g/dl (12.0-16.0); LYMPHOCYTES # (AUTO) 0.5 X10'3 (1.1-4.8); MONOCYTES # (AUTO) 0.3 X10'3 (0-0.9); NEUTROPHILS # (AUTO) 4.9 X10'3 (1.8-7.7); WHITE BLOOD COUNT 5.8 X10'3 (4.5-11.0)
[2021-09-24 03:25] LABS: HEMATOCRIT 27.1 % (35.0-45.0); LYMPHOCYTES % (AUTO) 9.1 % (21-51); MEAN CORPUSCULAR HEMOGLOBIN 30.7 PG (27.0-31.0); MEAN CORPUSCULAR HGB CONC 32.7 g/dL (33.0-36.5); MEAN CORPUSCULAR VOLUME 93.8 FL (78-98); MEAN PLATELET VOLUME 9.9 FL (7.4-10.4); MONOCYTES % (AUTO) 5.9 % (2-12); NEUTROPHILS % (AUTO) 84.8 % (42-75); PLATELET COUNT 113 X10'3 (140-440); RED BLOOD COUNT 2.89 X10'6 (4.20-5.60); RED CELL DISTRIBUTION WIDTH 16.1 % (11.5-14.5)
[2021-09-24 03:33] LABS: ABG BASE EXCESS 2.9 mmol/L (-2.0-2.0); ABG HCO3 27.9 mmol/L (22.0-26.0); ABG PCO2 (T) 43.7 mmHg (32.0-45.0); ALLEN'S TEST POSITIVE; FCOHb 0.6 % (0.0-3.9); FMetHb 0.3 % (0.0-1.5); FO2Hb 95.1 % (94-97); PATIENT TEMPERATURE 36.4; PEEP 16 cm H2O; RESPIRATORY RATE 26 b/min; TIDAL VOLUME 400 mL; TOTAL HEMOGLOBIN 9.7 G/dl (12.0-16.0)
[2021-09-24 03:33] LABS: D-DIMER 0.87 MG/L FEU (0-0.50)
[2021-09-24 03:37] LABS: ALANINE AMINOTRANSFERASE 619 U/L (12-78); ALBUMIN 2.1 G/DL (3.4-5.0); ALBUMIN/GLOBULIN RATIO 0.6 (1.1-1.5); ALKALINE PHOSPHATASE 86 IU/L (46-116); ANION GAP 7 (8-16); ASPARTATE AMINO TRANSFERASE 90 U/L (10-37); BILIRUBIN,TOTAL 0.4 MG/DL (0.1-1.0); BLOOD UREA NITROGEN 29 MG/DL (7-18); BUN/CREATININE RATIO 45.3 (6.6-38.0); CALCIUM 7.7 MG/DL (8.5-10.1); CHLORIDE 110 MMOL/L (99-107); CREATININE 0.64 MG/DL (0.40-0.90); GLUCOSE 182 MG/DL (70-104); MAGNESIUM 2.2 MG/DL (1.5-2.4); PHOSPHORUS 2.3 MG/DL (2.3-4.5); POTASSIUM 4.4 MMOL/L (3.5-5.1); SODIUM 146 MMOL/L (135-145); TOTAL CARBON DIOXIDE 29.4 MMOL/L (24-32); TOTAL PROTEIN 5.4 G/DL (6.4-8.2); eGFR > 90 ML/MIN
[2021-09-24 04:29] LABS: ANISOCYTOSIS 1+; NUCLEATED RED BLOOD CELLS 4 /100WBC (0-0); PLATELET ESTIMATE DECREASED; TOTAL CELLS COUNTED 100
[2021-09-24 04:30] LABS: POLYCHROMASIA 1+
[2021-09-24 04:31] LABS: TEAR DROP CELLS FEW
[2021-09-24] MEDS: midazolam 100mg in NS 100ml 100 ML IV SCH ×3 (05:13→22:09)
[2021-09-24] MEDS: K and/or MAG REPLACEMENT MC SCH ×2 (06:00→08:00)
--- NOTE | 2021-09-24 06:29 | NUR ---
Problems reprioritized. Patient report given, questions answered & plan of care reviewed with Radha MEHTA.
[2021-09-24] MEDS: NORepinephrine 8mg/ 250ml NS 250 ML IV SCH ×3 (06:35→19:00)
[2021-09-24] MEDS: zinc sulfate 220mg capsule PO SCH (08:00)
[2021-09-24] MEDS: loratadine 10mg tablet OGT SCH (08:00)
[2021-09-24] MEDS: enoxaparin 100mg/ml syringe SUBCUT SCH (08:00)
[2021-09-24] MEDS: docusate sodium 100mg/10ml UD cup OGT SCH ×2 (08:00→21:13)
[2021-09-24] MEDS: micafungin inj 100 MG in normal saline 100ml IV soln 100 ML IV SCH (08:00)
[2021-09-24] MEDS: pantoprazole 40 MG vial IV SCH (08:00)
[2021-09-24] MEDS: methylPREDNISolone sod succ/PF 40mg inj. IV SCH ×2 (08:00→21:14)
[2021-09-24] MEDS: ascorbic acid 500mg tablet OGT SCH ×3 (08:30→16:31)
[2021-09-24] MEDS: budesonide 0.5mg/2ml UD nebule IH SCH ×2 (08:59→20:27)
[2021-09-24 10:05] LABS: HEMATOCRIT 28.4 % (35.0-45.0); HEMOGLOBIN 9.4 g/dl (12.0-16.0); MEAN CORPUSCULAR HEMOGLOBIN 30.9 PG (27.0-31.0); MEAN CORPUSCULAR HGB CONC 33.2 g/dL (33.0-36.5); MEAN CORPUSCULAR VOLUME 93.1 FL (78-98); MEAN PLATELET VOLUME 10.1 FL (7.4-10.4); PLATELET COUNT 123 X10'3 (140-440); RED BLOOD COUNT 3.05 X10'6 (4.20-5.60); WHITE BLOOD COUNT 6.5 X10'3 (4.5-11.0)
[2021-09-24] MEDS ORDERED: VANCOMYCIN LEVEL IV ONE (10:30)
[2021-09-24 11:18] LABS: C-REACTIVE PROTEIN 0.44 MG/DL (0.0-0.5); VANCOMYCIN,TROUGH 15.6 UG/ML (6.0-14.0)
[2021-09-24] MEDS: vasopressin inj. 40 UNIT in normal saline 50ml IV soln 38 ML IV SCH (11:45)
[2021-09-24] MEDS: lactulose 20gm/30ml cup PO SCH ×11 (12:20→23:05)
[2021-09-24] MEDS: enoxaparin 40mg/0.4ml syringe SUBCUT SCH (14:43)
--- NOTE | 2021-09-24 18:22 | NUR ---
Report given to JANINE Leyva
[2021-09-24] MEDS ORDERED: enoxaparin 40mg/0.4ml syringe SUBCUT SCH (20:00)
[2021-09-24] MEDS: cefepime 2g/NS 100ml ADVANTAGE 100 ML IV SCH (20:00)
[2021-09-24] MEDS: insulin glargine (Lantus) pen - multi-dose SQ SCH (20:52)
[2021-09-25] VITALS (24 sets, daily range): BP systolic 108–141; BP diastolic 62–82
[2021-09-25] MEDS: lactulose 20gm/30ml cup PO SCH ×16 (00:19→15:59)
[2021-09-25] MEDS: FENTANYL-0.9 % NACL/PF 100 ML IV PRN ×5 (00:41→20:22)
[2021-09-25] MEDS: insulin regular, human U-100 3ml vial - multi-dose SQ SCH ×3 (02:24→22:14)
[2021-09-25 02:52] LABS: EOSINOPHILS % (AUTO) 0 % (0-6); HEMOGLOBIN 10.6 g/dl (12.0-16.0); LYMPHOCYTES # (AUTO) 0.4 X10'3 (1.1-4.8); MONOCYTES # (AUTO) 0.4 X10'3 (0-0.9)
[2021-09-25 02:54] LABS: BASOPHILS % (AUTO) 0.4 % (0-1); HEMATOCRIT 32.5 % (35.0-45.0); LYMPHOCYTES % (AUTO) 4.6 % (21-51); MEAN CORPUSCULAR HEMOGLOBIN 30.8 PG (27.0-31.0); MEAN CORPUSCULAR HGB CONC 32.6 g/dL (33.0-36.5); MEAN CORPUSCULAR VOLUME 94.7 FL (78-98); MEAN PLATELET VOLUME 10.5 FL (7.4-10.4); MONOCYTES % (AUTO) 4.6 % (2-12); NEUTROPHILS # (AUTO) 8.8 X10'3 (1.8-7.7); NEUTROPHILS % (AUTO) 90.4 % (42-75); PLATELET COUNT 170 X10'3 (140-440); RED BLOOD COUNT 3.43 X10'6 (4.20-5.60); RED CELL DISTRIBUTION WIDTH 16.3 % (11.5-14.5); WHITE BLOOD COUNT 9.7 X10'3 (4.5-11.0)
[2021-09-25 03:05] LABS: ALANINE AMINOTRANSFERASE 517 U/L (12-78); ALBUMIN 2.3 G/DL (3.4-5.0); ALBUMIN/GLOBULIN RATIO 0.6 (1.1-1.5); ALKALINE PHOSPHATASE 100 IU/L (46-116); ANION GAP 4 (8-16); ASPARTATE AMINO TRANSFERASE 66 U/L (10-37); BILIRUBIN,TOTAL 0.5 MG/DL (0.1-1.0); BLOOD UREA NITROGEN 30 MG/DL (7-18); BUN/CREATININE RATIO 36.1 (6.6-38.0); CALCIUM 8.4 MG/DL (8.5-10.1); CHLORIDE 112 MMOL/L (99-107); CREATININE 0.83 MG/DL (0.40-0.90); GLUCOSE 94 MG/DL (70-104); MAGNESIUM 2.7 MG/DL (1.5-2.4); PHOSPHORUS 3.6 MG/DL (2.3-4.5); POTASSIUM 4.6 MMOL/L (3.5-5.1); SODIUM 147 MMOL/L (135-145); TOTAL PROTEIN 6.1 G/DL (6.4-8.2); eGFR 71 ML/MIN
[2021-09-25 03:07] LABS: D-DIMER 3.69 MG/L FEU (0-0.50)
[2021-09-25] MEDS: levalbuterol 0.63mg/3ml nebule IH SCH ×3 (03:38→20:00)
[2021-09-25 04:11] LABS: ABG OXYGEN SATURATION 87.4 % (94-97); ABG PCO2 (T) 43.5 mmHg (32.0-45.0); ABG PO2 (T) 54.2 mmHg (75.0-100.0); ALLEN'S TEST POSITIVE; FCOHb 1.7 % (0.0-3.9); FMetHb 0.1 % (0.0-1.5); FO2Hb 85.8 % (94-97); PATIENT TEMPERATURE 37.3; PEEP 16 cm H2O; RESPIRATORY RATE 26 b/min; TIDAL VOLUME 400 mL; TOTAL HEMOGLOBIN 11.7 G/dl (12.0-16.0)
[2021-09-25 04:23] LABS: NUCLEATED RED BLOOD CELLS 4 /100WBC (0-0); PLATELET ESTIMATE NORMAL; TOTAL CELLS COUNTED 100
[2021-09-25 04:24] LABS: ANISOCYTOSIS 1+; TEAR DROP CELLS FEW
[2021-09-25] MEDS: midazolam 100mg in NS 100ml 100 ML IV SCH ×2 (05:33→20:23)
--- NOTE | 2021-09-25 06:00 | NUR ---
Patient in room CICU 2008. I have received report from ELLA MEHTA and had the opportunity to ask questions and assume patient care.
[2021-09-25] MEDS: cefepime 2g/NS 100ml ADVANTAGE 100 ML IV SCH ×2 (07:48→20:24)
[2021-09-25] MEDS: zinc sulfate 220mg capsule PO SCH (07:50)
[2021-09-25] MEDS: enoxaparin 40mg/0.4ml syringe SUBCUT SCH (07:50)
[2021-09-25] MEDS: loratadine 10mg tablet OGT SCH (07:50)
[2021-09-25] MEDS: pantoprazole 40 MG vial IV SCH (07:51)
[2021-09-25] MEDS: micafungin inj 100 MG in normal saline 100ml IV soln 100 ML IV SCH (07:51)
[2021-09-25] MEDS: K and/or MAG REPLACEMENT MC SCH ×2 (08:00→20:00)
[2021-09-25] MEDS: docusate sodium 100mg/10ml UD cup OGT SCH ×2 (08:30→20:20)
[2021-09-25] MEDS: methylPREDNISolone sod succ/PF 40mg inj. IV SCH ×2 (08:32→20:21)
[2021-09-25] MEDS: ascorbic acid 500mg tablet OGT SCH ×3 (08:33→17:30)
[2021-09-25] MEDS: budesonide 0.5mg/2ml UD nebule IH SCH ×2 (09:22→20:00)
[2021-09-25] MEDS: NORepinephrine 8mg/ 250ml NS 250 ML IV SCH ×2 (10:50→20:15)
--- NOTE | 2021-09-25 14:48 | NUR ---
RESPIRATORY CALLED. PTS SATURATION IN THE HIGH 70'S. SUCTIONED, REPOSITIONED, DR ALMEIDA PAGEAna M, VOICE MAIL MESSAGE LEFT
--- NOTE | 2021-09-25 15:00 | NUR ---
RT AT BEDSIDE, CALLED PHARMACY TO MAKE SURE THAT THERE IS NOT A MOAXIMUM ON THE LACTULOSE I HAVE BEEN GIVING Q [address] ALMEIDA PAGED PER PHARMACIST. VOICE MAIL LEFT
--- NOTE | 2021-09-25 16:23 | NUR ---
PT CONTINUES TO DESATURATE. DR AUSTIN PHONE NOW SAYS THE MAIL BOX IS FULL. SPOKE TO CHARGE NURSE, WHO STATES TO CALL THE [employer] TO REACH HIM. EDMUNDO MEHTA, [employer] CALLED, SHE DID NOT HAVE ANOTHER WAY TO REACH HIM. PTS SATS IN THE 70'S RT AT BEDSIDE BAGGING PT, UP TO 88
--- NOTE | 2021-09-25 16:37 | NUR ---
DR BLAS AT BEDSIDE
[2021-09-25] MEDS: lactobacillus rhamnosus 10,000 MMU CELLS/CAPSULE PO SCH (20:20)
[2021-09-25] MEDS: acetaminophen 325mg tablet OGT PRN (20:21)
[2021-09-25] MEDS: insulin glargine (Lantus) pen - multi-dose SQ SCH (21:00)
[2021-09-26] VITALS (22 sets, daily range): BP systolic 86–147; BP diastolic 54–78
[2021-09-26] MEDS: FENTANYL-0.9 % NACL/PF 100 ML IV PRN ×5 (01:15→20:04)
[2021-09-26] MEDS: insulin regular, human U-100 3ml vial - multi-dose SQ SCH ×4 (02:30→20:57)
[2021-09-26] MEDS: levalbuterol 0.63mg/3ml nebule IH SCH ×4 (02:46→20:59)
[2021-09-26 03:21] LABS: BASOPHILS % (AUTO) 0 % (0-1); EOSINOPHILS % (AUTO) 0 % (0-6); MONOCYTES # (AUTO) 0.2 X10'3 (0-0.9)
[2021-09-26 03:23] LABS: HEMATOCRIT 31.6 % (35.0-45.0); HEMOGLOBIN 10.4 g/dl (12.0-16.0); LYMPHOCYTES # (AUTO) 0.3 X10'3 (1.1-4.8); LYMPHOCYTES % (AUTO) 3.4 % (21-51); MEAN CORPUSCULAR HEMOGLOBIN 31.3 PG (27.0-31.0); MEAN CORPUSCULAR HGB CONC 32.8 g/dL (33.0-36.5); MEAN CORPUSCULAR VOLUME 95.5 FL (78-98); MEAN PLATELET VOLUME 10.2 FL (7.4-10.4); MONOCYTES % (AUTO) 2.3 % (2-12); NEUTROPHILS % (AUTO) 94.3 % (42-75); PLATELET COUNT 179 X10'3 (140-440); RED BLOOD COUNT 3.31 X10'6 (4.20-5.60); RED CELL DISTRIBUTION WIDTH 16.8 % (11.5-14.5); WHITE BLOOD COUNT 7.4 X10'3 (4.5-11.0)
[2021-09-26 03:38] LABS: ALANINE AMINOTRANSFERASE 343 U/L (12-78); ALBUMIN 2.1 G/DL (3.4-5.0); ALBUMIN/GLOBULIN RATIO 0.6 (1.1-1.5); ALKALINE PHOSPHATASE 98 IU/L (46-116); ANION GAP 7 (8-16); ASPARTATE AMINO TRANSFERASE 35 U/L (10-37); BILIRUBIN,TOTAL 0.4 MG/DL (0.1-1.0); BLOOD UREA NITROGEN 28 MG/DL (7-18); BUN/CREATININE RATIO 33.7 (6.6-38.0); CALCIUM 7.8 MG/DL (8.5-10.1); CHLORIDE 110 MMOL/L (99-107); CREATININE 0.83 MG/DL (0.40-0.90); GLUCOSE 164 MG/DL (70-104); MAGNESIUM 2.3 MG/DL (1.5-2.4); PHOSPHORUS 4.8 MG/DL (2.3-4.5); POTASSIUM 4.2 MMOL/L (3.5-5.1); SODIUM 145 MMOL/L (135-145); TOTAL CARBON DIOXIDE 28.1 MMOL/L (24-32); TOTAL PROTEIN 5.9 G/DL (6.4-8.2); eGFR 71 ML/MIN
[2021-09-26 04:04] LABS: ABG BASE EXCESS -2.8 mmol/L (-2.0-2.0); ABG HCO3 24.6 mmol/L (22.0-26.0); ABG OXYGEN SATURATION 95.2 % (94-97); ABG PO2 (T) 87.3 mmHg (75.0-100.0); ALLEN'S TEST POSITIVE; FCOHb 1.5 % (0.0-3.9); FO2Hb 93.8 % (94-97); PATIENT TEMPERATURE 37.4; RESPIRATORY RATE 26 b/min; TIDAL VOLUME 400 mL; TOTAL HEMOGLOBIN 11.3 G/dl (12.0-16.0)
--- NOTE | 2021-09-26 04:50 | NUR ---
*Large amounts of loose stool covering bed and leaking on floor area. Rectal tube placed per MD's orders. Pt tolerated with minimal discomfort.
[2021-09-26] MEDS: midazolam 100mg in NS 100ml 100 ML IV SCH ×4 (04:52→22:32)
[2021-09-26] MEDS: NORepinephrine 8mg/ 250ml NS 250 ML IV SCH ×2 (05:40→15:05)
--- NOTE | 2021-09-26 06:00 | NUR ---
Patient in room CICU 2008. I have received report from Autumn MEHTA and had the opportunity to ask questions and assume patient care.
[2021-09-26] MEDS: CEFEPIME 2gm in D5W 50mL 50 ML IV SCH ×2 (07:21→20:09)
[2021-09-26] MEDS: lactobacillus rhamnosus 10,000 MMU CELLS/CAPSULE PO SCH ×2 (07:23→20:10)
[2021-09-26] MEDS: methylPREDNISolone sod succ/PF 40mg inj. IV SCH ×2 (07:23→20:09)
[2021-09-26] MEDS: zinc sulfate 220mg capsule PO SCH (07:23)
[2021-09-26] MEDS: loratadine 10mg tablet OGT SCH (07:23)
[2021-09-26] MEDS: docusate sodium 100mg/10ml UD cup OGT SCH ×2 (07:23→20:10)
[2021-09-26] MEDS: pantoprazole 40 MG vial IV SCH (07:23)
[2021-09-26] MEDS: enoxaparin 40mg/0.4ml syringe SUBCUT SCH (07:24)
[2021-09-26] MEDS: K and/or MAG REPLACEMENT MC SCH (07:25)
[2021-09-26] MEDS: budesonide 0.5mg/2ml UD nebule IH SCH ×2 (07:39→20:59)
[2021-09-26] MEDS: micafungin inj 100 MG in normal saline 100ml IV soln 100 ML IV SCH (08:15)
[2021-09-26] MEDS: ascorbic acid 500mg tablet OGT SCH ×3 (08:15→17:39)
--- NOTE | 2021-09-26 10:00 | NUR ---
Rounded with Dr. Benitez. Patients FIO turned down to 85% by RT. per Dr. Benitez. I discussed with him that family would like a telephone call from him so they can make her a DNR, but they do not want to withdraw the ventilator at this time.
--- NOTE | 2021-09-26 11:21 | NUR ---
Reassessment: Pt remains intubated and tolerating TF at goal rate with GRV WNL. LBM 09/25 documented with 1 L stool output and now with a rectal tube in place, first BM since 09/11 per EMR. Recommend continuing with routine bowel care given previous constipation. No changes to nutrition recommendations at this time. Will continue to follow. Recommendations: 1) Continuous TF via OGT using Vital High Protein at 65 mL/hr to provide 1560 mL total volume/day, 1560 kcal, 137 g protein, and 1304 mL water; Adjust if Propofol is resumed 2) Additional 150 mL water flush Q4H; monitor serum Na and adjust as appropriate 3) Prealbumin q Friday/; daily scaled weights 4) Routine bowel care; previously constipated 15 days 5) DM education once stable following extubation, A1c 6.8% and no PMH of DM in EMR. Pt will need official DM dx by physician prior to RD education Addendum: 09/26/21 at [address] Amended: Links added.
--- NOTE | 2021-09-26 14:44 | NUR ---
Received message from coworker that family had called and wanted Dr. Benitez to put in a transfer, consult for [facility]. Dr. Benitez notified.
--- NOTE | 2021-09-26 18:00 | NUR ---
Problems reprioritized. Patient report given, questions answered & plan of care reviewed with Autumn.
[2021-09-26] MEDS: insulin glargine (Lantus) pen - multi-dose SQ SCH (20:59)
[2021-09-27] VITALS (24 sets, daily range): BP systolic 92–179; BP diastolic 48–94
[2021-09-27] MEDS: FENTANYL-0.9 % NACL/PF 100 ML IV PRN ×5 (00:38→22:34)
[2021-09-27] MEDS: insulin regular, human U-100 3ml vial - multi-dose SQ SCH ×4 (03:05→20:47)
[2021-09-27] MEDS: levalbuterol 0.63mg/3ml nebule IH SCH ×4 (03:07→21:40)
[2021-09-27 03:14] LABS: BASOPHILS % (AUTO) 0 % (0-1); EOSINOPHILS % (AUTO) 0.1 % (0-6); HEMATOCRIT 29.7 % (35.0-45.0); HEMOGLOBIN 9.8 g/dl (12.0-16.0); LYMPHOCYTES # (AUTO) 0.2 X10'3 (1.1-4.8); LYMPHOCYTES % (AUTO) 3.1 % (21-51); MEAN CORPUSCULAR HGB CONC 33.1 g/dL (33.0-36.5); MEAN CORPUSCULAR VOLUME 93.9 FL (78-98); MEAN PLATELET VOLUME 9.8 FL (7.4-10.4); MONOCYTES # (AUTO) 0.1 X10'3 (0-0.9); MONOCYTES % (AUTO) 1.9 % (2-12); NEUTROPHILS # (AUTO) 6.7 X10'3 (1.8-7.7); NEUTROPHILS % (AUTO) 94.9 % (42-75); PLATELET COUNT 169 X10'3 (140-440); RED BLOOD COUNT 3.16 X10'6 (4.20-5.60)
[2021-09-27 03:21] LABS: D-DIMER 3.22 MG/L FEU (0-0.50)
[2021-09-27 03:26] LABS: ALANINE AMINOTRANSFERASE 234 U/L (12-78); ALBUMIN 1.9 G/DL (3.4-5.0); ALBUMIN/GLOBULIN RATIO 0.5 (1.1-1.5); ALKALINE PHOSPHATASE 78 IU/L (46-116); ANION GAP 3 (8-16); ASPARTATE AMINO TRANSFERASE 31 U/L (10-37); BILIRUBIN,TOTAL 0.4 MG/DL (0.1-1.0); BLOOD UREA NITROGEN 26 MG/DL (7-18); BUN/CREATININE RATIO 49.1 (6.6-38.0); C-REACTIVE PROTEIN 1.45 MG/DL (0.0-0.5); CHLORIDE 105 MMOL/L (99-107); CREATININE 0.53 MG/DL (0.40-0.90); GLUCOSE 136 MG/DL (70-104); MAGNESIUM 2.1 MG/DL (1.5-2.4); PHOSPHORUS 2.8 MG/DL (2.3-4.5); POTASSIUM 4.8 MMOL/L (3.5-5.1); PREALBUMIN 21.3 MG/DL (19-36); SODIUM 140 MMOL/L (135-145); TOTAL CARBON DIOXIDE 32.2 MMOL/L (24-32); TOTAL PROTEIN 5.4 G/DL (6.4-8.2); eGFR > 90 ML/MIN
[2021-09-27 04:03] LABS: ABG BASE EXCESS 4.7 mmol/L (-2.0-2.0); ABG HCO3 29.3 mmol/L (22.0-26.0); ABG OXYGEN SATURATION 96.8 % (94-97); ABG PCO2 (T) 42.9 mmHg (32.0-45.0); ABG PO2 (T) 84.9 mmHg (75.0-100.0); ALLEN'S TEST POSITIVE; FCOHb 0.9 % (0.0-3.9); FMetHb 0.1 % (0.0-1.5); FO2Hb 95.8 % (94-97); PATIENT TEMPERATURE 36.4; PEEP 18 cm H2O; RESPIRATORY RATE 26 b/min; TIDAL VOLUME 400 mL; TOTAL HEMOGLOBIN 10.2 G/dl (12.0-16.0)
[2021-09-27] MEDS: midazolam 100mg in NS 100ml 100 ML IV SCH (05:38)
[2021-09-27] MEDS: NORepinephrine 8mg/ 250ml NS 250 ML IV SCH ×3 (06:00→19:20)
[2021-09-27] MEDS: K and/or MAG REPLACEMENT MC SCH ×3 (06:00→20:00)
--- NOTE | 2021-09-27 06:00 | NUR ---
Patient in room CICU 2008. I have received report from Autumn MEHTA and had the opportunity to ask questions and assume patient care.
--- NOTE | 2021-09-27 06:00 | NUR ---
Patient in room CICU 2008. I have received report from Autumn MEHTA and had the opportunity to ask questions and assume patient care.
[2021-09-27] MEDS: budesonide 0.5mg/2ml UD nebule IH SCH ×2 (07:28→21:40)
[2021-09-27] MEDS: cefepime 2g/NS 100ml ADVANTAGE 100 ML IV SCH ×2 (07:36→19:46)
[2021-09-27] MEDS: pantoprazole 40 MG vial IV SCH (07:37)
[2021-09-27] MEDS: enoxaparin 40mg/0.4ml syringe SUBCUT SCH (07:37)
[2021-09-27] MEDS: methylPREDNISolone sod succ/PF 40mg inj. IV SCH ×2 (07:37→19:46)
[2021-09-27] MEDS: docusate sodium 100mg/10ml UD cup OGT SCH ×2 (07:38→20:00)
[2021-09-27] MEDS: loratadine 10mg tablet OGT SCH (07:38)
[2021-09-27] MEDS: zinc sulfate 220mg capsule PO SCH (07:38)
[2021-09-27] MEDS: lactobacillus rhamnosus 10,000 MMU CELLS/CAPSULE PO SCH ×2 (07:38→19:46)
[2021-09-27] MEDS: micafungin inj 100 MG in normal saline 100ml IV soln 100 ML IV SCH (07:44)
[2021-09-27] MEDS: ascorbic acid 500mg tablet OGT SCH ×3 (08:52→17:51)
--- NOTE | 2021-09-27 11:00 | NUR ---
spoke to pts sister, update given
--- NOTE | 2021-09-27 13:30 | NUR ---
phone consent obtained for picc line with second nurse Graciela MEHTA
--- NOTE | 2021-09-27 14:16 | NUR ---
F/u 09/27: Due to national shortage of Vital AF and Vital High Protein, if substitution necessary, recommend Pivot 1.5, see recs below for if substitution. Unable to meet protein needs given high kcal formula Recommendations: 1) Continuous TF via OGT using Vital High Protein at 65 mL/hr to provide 1560 mL total volume/day, 1560 kcal, 137 g protein, and 1304 mL water; Adjust if Propofol is resumed 2) Additional 150 mL water flush Q4H; monitor serum Na and adjust as appropriate 3) IF out of Vital High Protein sub Pivot 1.5 at 45ml/hr providing 1080ml volume, 1620kcals, 101g protein, 820ml free water. Additional water flush 200ml Q4H 4) Prealbumin q Friday/; daily scaled weights 5) Routine bowel care; previously constipated 15 days 6) DM education once stable following extubation, A1c 6.8% and no PMH of DM in EMR. Pt will need official DM dx by physician prior to RD education Addendum: 09/27/21 at [address] Amended: Links added.
--- NOTE | 2021-09-27 16:30 | NUR ---
spoke to Dr. Benitez about pts hypertension. No orders received, will continue to monitor
--- NOTE | 2021-09-27 18:30 | NUR ---
Patient in room CICU 2008. I have received report from Ximena MEHTA and had the opportunity to ask questions and assume patient care.
--- NOTE | 2021-09-27 18:35 | NUR ---
right arm picc and left arm extended iv inserted by picc nurse, verbally gave ok to use
--- NOTE | 2021-09-27 18:38 | NUR ---
Problems reprioritized. Patient report given, questions answered & plan of care reviewed with Rony MEHTA.
[2021-09-27] MEDS: insulin glargine (Lantus) pen - multi-dose SQ SCH (22:20)
[2021-09-28] VITALS (23 sets, daily range): BP systolic 79–160; BP diastolic 44–88
[2021-09-28] MEDS: insulin regular, human U-100 3ml vial - multi-dose SQ SCH ×3 (02:40→22:11)
[2021-09-28 03:08] LABS: BASOPHILS % (AUTO) 0.3 % (0-1); EOSINOPHILS % (AUTO) 0.6 % (0-6); HEMOGLOBIN 9.9 g/dl (12.0-16.0); LYMPHOCYTES # (AUTO) 0.3 X10'3 (1.1-4.8); LYMPHOCYTES % (AUTO) 5.4 % (21-51); MEAN CORPUSCULAR HGB CONC 33.1 g/dL (33.0-36.5); MEAN CORPUSCULAR VOLUME 93.6 FL (78-98); MEAN PLATELET VOLUME 9.9 FL (7.4-10.4); MONOCYTES # (AUTO) 0.2 X10'3 (0-0.9); NEUTROPHILS # (AUTO) 5.7 X10'3 (1.8-7.7); NEUTROPHILS % (AUTO) 90.7 % (42-75); PLATELET COUNT 187 X10'3 (140-440); RED CELL DISTRIBUTION WIDTH 16.5 % (11.5-14.5); WHITE BLOOD COUNT 6.3 X10'3 (4.5-11.0)
[2021-09-28] MEDS: levalbuterol 0.63mg/3ml nebule IH SCH ×4 (03:14→21:28)
[2021-09-28 03:28] LABS: ABG BASE EXCESS 4.2 mmol/L (-2.0-2.0); ABG OXYGEN SATURATION 91.8 % (94-97); ABG PCO2 (T) 38.9 mmHg (32.0-45.0); ABG PO2 (T) 60.6 mmHg (75.0-100.0); ALLEN'S TEST POSITIVE; FCOHb 1.2 % (0.0-3.9); FO2Hb 90.7 % (94-97); PEEP 18 cm H2O; RESPIRATORY RATE 26 b/min; TIDAL VOLUME 400 mL; TOTAL HEMOGLOBIN 11.8 G/dl (12.0-16.0)
[2021-09-28] MEDS: FENTANYL-0.9 % NACL/PF 100 ML IV PRN ×5 (03:30→20:58)
[2021-09-28 03:37] LABS: ALANINE AMINOTRANSFERASE 165 U/L (12-78); ALBUMIN 1.8 G/DL (3.4-5.0); ALBUMIN/GLOBULIN RATIO 0.5 (1.1-1.5); ALKALINE PHOSPHATASE 77 IU/L (46-116); ANION GAP 2 (8-16); ASPARTATE AMINO TRANSFERASE 29 U/L (10-37); BILIRUBIN,TOTAL 0.4 MG/DL (0.1-1.0); BLOOD UREA NITROGEN 25 MG/DL (7-18); BUN/CREATININE RATIO 53.2 (6.6-38.0); CALCIUM 8.4 MG/DL (8.5-10.1); CHLORIDE 105 MMOL/L (99-107); CREATININE 0.47 MG/DL (0.40-0.90); GLUCOSE 103 MG/DL (70-104); PHOSPHORUS 3.8 MG/DL (2.3-4.5); POTASSIUM 4.2 MMOL/L (3.5-5.1); SODIUM 139 MMOL/L (135-145); TOTAL CARBON DIOXIDE 32.4 MMOL/L (24-32); TOTAL PROTEIN 5.3 G/DL (6.4-8.2); eGFR > 90 ML/MIN
[2021-09-28 04:36] LABS: ANISOCYTOSIS 1+; LARGE PLATELETS FEW; PLATELET ESTIMATE NORMAL; STOMATOCYTES FEW; TOTAL CELLS COUNTED 100
[2021-09-28] MEDS: midazolam 100mg in NS 100ml 100 ML IV SCH ×3 (04:37→20:58)
[2021-09-28] MEDS: budesonide 0.5mg/2ml UD nebule IH SCH ×2 (07:54→21:28)
[2021-09-28] MEDS: cefepime 2g/NS 100ml ADVANTAGE 100 ML IV SCH (08:27)
[2021-09-28] MEDS: methylPREDNISolone sod succ/PF 40mg inj. IV SCH ×2 (08:27→20:59)
[2021-09-28] MEDS: docusate sodium 100mg/10ml UD cup OGT SCH ×2 (08:27→21:00)
[2021-09-28] MEDS: pantoprazole 40 MG vial IV SCH (08:28)
[2021-09-28] MEDS: enoxaparin 40mg/0.4ml syringe SUBCUT SCH (08:28)
[2021-09-28] MEDS: micafungin inj 100 MG in normal saline 100ml IV soln 100 ML IV SCH (08:28)
[2021-09-28] MEDS: loratadine 10mg tablet OGT SCH (08:28)
[2021-09-28] MEDS: zinc sulfate 220mg capsule PO SCH (08:28)
[2021-09-28] MEDS: ascorbic acid 500mg tablet OGT SCH ×3 (08:28→20:20)
[2021-09-28 15:20] LABS: ANION GAP 8 (8-16); BLOOD UREA NITROGEN 25 MG/DL (7-18); BUN/CREATININE RATIO 58.1 (6.6-38.0); CALCIUM 8.4 MG/DL (8.5-10.1); CHLORIDE 105 MMOL/L (99-107); CREATININE 0.43 MG/DL (0.40-0.90); GLUCOSE 73 MG/DL (70-104); MAGNESIUM 1.8 MG/DL (1.5-2.4); POTASSIUM 3.7 MMOL/L (3.5-5.1); SODIUM 143 MMOL/L (135-145); TOTAL CARBON DIOXIDE 30.3 MMOL/L (24-32); eGFR > 90 ML/MIN
[2021-09-28] MEDS: NORepinephrine 8mg/ 250ml NS 250 ML IV SCH ×3 (19:00→23:35)
[2021-09-28] MEDS: K and/or MAG REPLACEMENT MC SCH ×2 (19:00→20:00)
[2021-09-28] MEDS: insulin glargine (Lantus) pen - multi-dose SQ SCH (21:00)
[2021-09-29] VITALS (24 sets, daily range): BP systolic 85–170; BP diastolic 40–103
[2021-09-29] MEDS: cefepime 2g/NS 100ml ADVANTAGE 100 ML IV SCH ×3 (02:31→19:33)
[2021-09-29] MEDS: FENTANYL-0.9 % NACL/PF 100 ML IV PRN ×4 (02:45→19:33)
[2021-09-29] MEDS: levalbuterol 0.63mg/3ml nebule IH SCH ×4 (02:46→19:06)
[2021-09-29] MEDS: insulin regular, human U-100 3ml vial - multi-dose SQ SCH ×3 (02:58→20:43)
[2021-09-29 02:59] LABS: D-DIMER 1.93 MG/L FEU (0-0.50)
[2021-09-29 03:03] LABS: ABG BASE EXCESS 4.9 mmol/L (-2.0-2.0); ABG HCO3 30.4 mmol/L (22.0-26.0); ABG OXYGEN SATURATION 96.2 % (94-97); ABG PCO2 (T) 48.9 mmHg (32.0-45.0); ABG PO2 (T) 86.8 mmHg (75.0-100.0); ALLEN'S TEST POSITIVE; FMetHb 0.1 % (0.0-1.5); FO2Hb 95.1 % (94-97); PATIENT TEMPERATURE 36.8; PEEP 18 cm H2O; RESPIRATORY RATE 26 b/min; TIDAL VOLUME 400 mL; TOTAL HEMOGLOBIN 11.2 G/dl (12.0-16.0)
[2021-09-29 03:14] LABS: ALANINE AMINOTRANSFERASE 139 U/L (12-78); ALBUMIN 1.8 G/DL (3.4-5.0); ALBUMIN/GLOBULIN RATIO 0.5 (1.1-1.5); ALKALINE PHOSPHATASE 72 IU/L (46-116); ANION GAP 6 (8-16); ASPARTATE AMINO TRANSFERASE 33 U/L (10-37); BILIRUBIN,TOTAL 0.4 MG/DL (0.1-1.0); BLOOD UREA NITROGEN 22 MG/DL (7-18); BUN/CREATININE RATIO 44.9 (6.6-38.0); C-REACTIVE PROTEIN 6.86 MG/DL (0.0-0.5); CALCIUM 8.2 MG/DL (8.5-10.1); CHLORIDE 105 MMOL/L (99-107); CREATININE 0.49 MG/DL (0.40-0.90); GLUCOSE 82 MG/DL (70-104); POTASSIUM 4.4 MMOL/L (3.5-5.1); SODIUM 143 MMOL/L (135-145); TOTAL PROTEIN 5.8 G/DL (6.4-8.2); eGFR > 90 ML/MIN
[2021-09-29 03:24] LABS: BASOPHILS % (AUTO) 0 % (0-1); EOSINOPHILS # (AUTO) 0.1 X10'3 (0-0.9); EOSINOPHILS % (AUTO) 1.4 % (0-6); HEMATOCRIT 30.8 % (35.0-45.0); HEMOGLOBIN 10.3 g/dl (12.0-16.0); LYMPHOCYTES # (AUTO) 0.1 X10'3 (1.1-4.8); MEAN CORPUSCULAR HEMOGLOBIN 31.2 PG (27.0-31.0); MEAN CORPUSCULAR HGB CONC 33.3 g/dL (33.0-36.5); MEAN CORPUSCULAR VOLUME 93.7 FL (78-98); MEAN PLATELET VOLUME 9.7 FL (7.4-10.4); MONOCYTES # (AUTO) 0.3 X10'3 (0-0.9); MONOCYTES % (AUTO) 3.8 % (2-12); NEUTROPHILS # (AUTO) 6.2 X10'3 (1.8-7.7); NEUTROPHILS % (AUTO) 92.8 % (42-75); PLATELET COUNT 213 X10'3 (140-440); RED BLOOD COUNT 3.29 X10'6 (4.20-5.60); RED CELL DISTRIBUTION WIDTH 16.8 % (11.5-14.5); WHITE BLOOD COUNT 6.7 X10'3 (4.5-11.0)
[2021-09-29] MEDS: midazolam 100mg in NS 100ml 100 ML IV SCH ×2 (05:23→16:15)
[2021-09-29] MEDS: K and/or MAG REPLACEMENT MC SCH ×2 (08:00→20:00)
[2021-09-29] MEDS: budesonide 0.5mg/2ml UD nebule IH SCH ×2 (08:02→19:06)
[2021-09-29] MEDS: micafungin inj 100 MG in normal saline 100ml IV soln 100 ML IV SCH (08:18)
[2021-09-29] MEDS: ascorbic acid 500mg tablet OGT SCH ×2 (08:19→13:35)
[2021-09-29] MEDS: loratadine 10mg tablet OGT SCH (08:19)
[2021-09-29] MEDS: zinc sulfate 220mg capsule PO SCH (08:20)
[2021-09-29] MEDS: enoxaparin 40mg/0.4ml syringe SUBCUT SCH (08:20)
[2021-09-29] MEDS: pantoprazole 40 MG vial IV SCH (08:20)
[2021-09-29] MEDS: docusate sodium 100mg/10ml UD cup OGT SCH ×2 (08:22→19:32)
[2021-09-29] MEDS: methylPREDNISolone sod succ/PF 40mg inj. IV SCH ×2 (08:22→19:32)
[2021-09-29] MEDS ORDERED: VANCOMYCIN LEVEL IV ONE (10:30)
[2021-09-29 10:59] LABS: VANCOMYCIN,TROUGH 16.6 UG/ML (6.0-14.0)
[2021-09-29] MEDS ORDERED: lactobacillus rhamnosus 10,000 MMU CELLS/CAPSULE PO SCH (20:00)
[2021-09-29] MEDS: insulin glargine (Lantus) pen - multi-dose SQ SCH (20:34)
[2021-09-29] MEDS: NORepinephrine 8mg/ 250ml NS 250 ML IV SCH (22:10)
[2021-09-30] VITALS (23 sets, daily range): BP systolic 82–150; BP diastolic 38–87
[2021-09-30 02:20] LABS: BASOPHILS % (AUTO) 0.1 % (0-1); EOSINOPHILS % (AUTO) 0.4 % (0-6); HEMATOCRIT 27.2 % (35.0-45.0); LYMPHOCYTES # (AUTO) 0.2 X10'3 (1.1-4.8); LYMPHOCYTES % (AUTO) 3.8 % (21-51); MEAN PLATELET VOLUME 9.7 FL (7.4-10.4); MONOCYTES # (AUTO) 0.2 X10'3 (0-0.9); MONOCYTES % (AUTO) 3.5 % (2-12); NEUTROPHILS # (AUTO) 4.8 X10'3 (1.8-7.7); NEUTROPHILS % (AUTO) 92.2 % (42-75); PLATELET COUNT 220 X10'3 (140-440); RED CELL DISTRIBUTION WIDTH 17.2 % (11.5-14.5); WHITE BLOOD COUNT 5.2 X10'3 (4.5-11.0)
[2021-09-30 02:29] LABS: D-DIMER 1.71 MG/L FEU (0-0.50)
[2021-09-30] MEDS: levalbuterol 0.63mg/3ml nebule IH SCH ×4 (02:41→20:34)
[2021-09-30] MEDS: insulin regular, human U-100 3ml vial - multi-dose SQ SCH ×4 (02:51→20:41)
[2021-09-30 03:31] LABS: ALANINE AMINOTRANSFERASE 102 U/L (12-78); ALBUMIN 1.7 G/DL (3.4-5.0); ALBUMIN/GLOBULIN RATIO 0.4 (1.1-1.5); ALKALINE PHOSPHATASE 65 IU/L (46-116); ANION GAP 7 (8-16); ASPARTATE AMINO TRANSFERASE 17 U/L (10-37); BILIRUBIN,TOTAL 0.4 MG/DL (0.1-1.0); BLOOD UREA NITROGEN 22 MG/DL (7-18); BUN/CREATININE RATIO 44.9 (6.6-38.0); C-REACTIVE PROTEIN 7.57 MG/DL (0.0-0.5); CALCIUM 8.3 MG/DL (8.5-10.1); CHLORIDE 105 MMOL/L (99-107); CREATININE 0.49 MG/DL (0.40-0.90); GLUCOSE 129 MG/DL (70-104); POTASSIUM 4.3 MMOL/L (3.5-5.1); SODIUM 142 MMOL/L (135-145); TOTAL CARBON DIOXIDE 30.3 MMOL/L (24-32); TOTAL PROTEIN 5.5 G/DL (6.4-8.2); eGFR > 90 ML/MIN
[2021-09-30 04:43] LABS: ABG HCO3 31.1 mmol/L (22.0-26.0); ABG OXYGEN SATURATION 91.5 % (94-97); ABG PCO2 (T) 41.5 mmHg (32.0-45.0); ABG PO2 (T) 58.8 mmHg (75.0-100.0); ALLEN'S TEST POSITIVE; FCOHb 0.8 % (0.0-3.9); FMetHb 0.1 % (0.0-1.5); FO2Hb 90.7 % (94-97); PATIENT TEMPERATURE 36.5; PEEP 18 cm H2O; RESPIRATORY RATE 26 b/min; TIDAL VOLUME 400 mL; TOTAL HEMOGLOBIN 10.6 G/dl (12.0-16.0)
[2021-09-30] MEDS: FENTANYL-0.9 % NACL/PF 100 ML IV PRN ×3 (05:34→20:23)
[2021-09-30] MEDS: budesonide 0.5mg/2ml UD nebule IH SCH ×2 (07:12→20:34)
--- NOTE | 2021-09-30 07:39 | NUR ---
Reassessment: Pt remains intubated and sedated, tolerating TF at goal rate with GRV WNL. Due to national shortage of Vital TF formulas, pt currently receiving Pivot 1.5 at 45ml/hr goal, though unable to meet protein needs d/t high kcal formula. LBM 09/27 documented with 200mL stool output with a rectal tube in place. Recommend continuing with routine bowel care given previous constipation. No changes to nutrition recommendations at this time. Will continue to follow. Recommendations: 1) Continuous TF via OGT using Vital High Protein at 65 mL/hr to provide 1560 mL total volume/day, 1560 kcal, 137 g protein, and 1304 mL water; Adjust if Propofol is resumed 2) Additional 150 mL water flush Q4H; monitor serum Na and adjust as appropriate 3) IF out of Vital High Protein sub Pivot 1.5 at 45ml/hr providing 1080ml volume, 1620kcals, 101g protein, 820ml free water. Additional water flush 200ml Q4H 4) Prealbumin q Friday/; daily scaled weights 5) Routine bowel care; previously constipated 15 days 6) DM education once stable following extubation, A1c 6.8% and no PMH of DM in EMR. Pt will need official DM dx by physician prior to RD education Addendum: 09/30/21 at [address] Amended: Links added.
[2021-09-30] MEDS: K and/or MAG REPLACEMENT MC SCH ×2 (08:00→20:00)
[2021-09-30] MEDS: ascorbic acid 500mg tablet OGT SCH ×3 (08:45→18:06)
[2021-09-30] MEDS: enoxaparin 40mg/0.4ml syringe SUBCUT SCH (09:11)
[2021-09-30] MEDS: cefepime 2g/NS 100ml ADVANTAGE 100 ML IV SCH ×2 (09:14→20:23)
[2021-09-30] MEDS: loratadine 10mg tablet OGT SCH (09:15)
[2021-09-30] MEDS: methylPREDNISolone sod succ/PF 40mg inj. IV SCH ×2 (09:15→20:24)
[2021-09-30] MEDS: zinc sulfate 220mg capsule PO SCH (09:16)
[2021-09-30] MEDS: pantoprazole 40 MG vial IV SCH (09:18)
[2021-09-30] MEDS: micafungin inj 100 MG in normal saline 100ml IV soln 100 ML IV SCH (09:50)
[2021-09-30] MEDS: docusate sodium 100mg/10ml UD cup OGT SCH (20:00)
[2021-09-30] MEDS: midazolam 100mg in NS 100ml 100 ML IV SCH (20:23)
[2021-09-30] MEDS: insulin glargine (Lantus) pen - multi-dose SQ SCH (20:40)
[2021-09-30] MEDS: NORepinephrine 8mg/ 250ml NS 250 ML IV SCH (23:18)
[2021-10-01] VITALS (16 sets, daily range): BP systolic 89–150; BP diastolic 52–78
[2021-10-01] MEDS: insulin regular, human U-100 3ml vial - multi-dose SQ SCH ×2 (02:24→07:54)
[2021-10-01 02:37] LABS: ABG BASE EXCESS 3.4 mmol/L (-2.0-2.0); ABG HCO3 27.7 mmol/L (22.0-26.0); ABG OXYGEN SATURATION 97.8 % (94-97); ABG PO2 (T) 103.7 mmHg (75.0-100.0); ALLEN'S TEST POSITIVE; FMetHb 0.1 % (0.0-1.5); FO2Hb 96.7 % (94-97); PATIENT TEMPERATURE 37.1; PEEP 18 cm H2O; RESPIRATORY RATE 26 b/min; TIDAL VOLUME 400 mL; TOTAL HEMOGLOBIN 10.9 G/dl (12.0-16.0)
[2021-10-01] MEDS: levalbuterol 0.63mg/3ml nebule IH SCH ×2 (02:45→07:17)
[2021-10-01] MEDS ORDERED: dextrose 50%-water 50ml dispensing syringe IV ONE (03:45)
[2021-10-01] MEDS ORDERED: CALCIUM GLUC 1gm/50ml NACL,iso 50 ML IV ONE (03:45)
[2021-10-01] MEDS ORDERED: insulin regular, human 10 units/0.1 ml syringe IV ONE (03:45)
[2021-10-01 06:58] LABS: BASOPHILS % (AUTO) 0.2 % (0-1); MEAN CORPUSCULAR HEMOGLOBIN 31.5 PG (27.0-31.0); MEAN PLATELET VOLUME 8.9 FL (7.4-10.4); MONOCYTES # (AUTO) 0.2 X10'3 (0-0.9); NEUTROPHILS # (AUTO) 5.6 X10'3 (1.8-7.7)
[2021-10-01 07:00] LABS: EOSINOPHILS % (AUTO) 0.6 % (0-6); HEMATOCRIT 27.9 % (35.0-45.0); HEMOGLOBIN 9.5 g/dl (12.0-16.0); LYMPHOCYTES # (AUTO) 0.3 X10'3 (1.1-4.8); LYMPHOCYTES % (AUTO) 5.3 % (21-51); MEAN CORPUSCULAR VOLUME 92.6 FL (78-98); MONOCYTES % (AUTO) 3.7 % (2-12); NEUTROPHILS % (AUTO) 90.2 % (42-75); PLATELET COUNT 259 X10'3 (140-440); RED BLOOD COUNT 3.01 X10'6 (4.20-5.60); RED CELL DISTRIBUTION WIDTH 17.4 % (11.5-14.5); WHITE BLOOD COUNT 6.2 X10'3 (4.5-11.0)
[2021-10-01] MEDS: budesonide 0.5mg/2ml UD nebule IH SCH (07:17)
[2021-10-01 07:19] LABS: ALANINE AMINOTRANSFERASE 85 U/L (12-78); ALBUMIN 1.9 G/DL (3.4-5.0); ALBUMIN/GLOBULIN RATIO 0.5 (1.1-1.5); ALKALINE PHOSPHATASE 84 IU/L (46-116); ANION GAP 7 (8-16); ASPARTATE AMINO TRANSFERASE 24 U/L (10-37); BILIRUBIN,TOTAL 0.4 MG/DL (0.1-1.0); BLOOD UREA NITROGEN 22 MG/DL (7-18); BUN/CREATININE RATIO 48.9 (6.6-38.0); C-REACTIVE PROTEIN 3.71 MG/DL (0.0-0.5); CALCIUM 8.7 MG/DL (8.5-10.1); CHLORIDE 105 MMOL/L (99-107); CREATININE 0.45 MG/DL (0.40-0.90); GLUCOSE 120 MG/DL (70-104); PREALBUMIN 26.3 MG/DL (19-36); SODIUM 143 MMOL/L (135-145); TOTAL CARBON DIOXIDE 30.9 MMOL/L (24-32); TOTAL PROTEIN 5.9 G/DL (6.4-8.2); eGFR > 90 ML/MIN
[2021-10-01] MEDS: micafungin inj 100 MG in normal saline 100ml IV soln 100 ML IV SCH (07:55)
[2021-10-01] MEDS: loratadine 10mg tablet OGT SCH (07:57)
[2021-10-01] MEDS: methylPREDNISolone sod succ/PF 40mg inj. IV SCH (07:57)
[2021-10-01] MEDS: pantoprazole 40 MG vial IV SCH (07:57)
[2021-10-01] MEDS: zinc sulfate 220mg capsule PO SCH (07:57)
[2021-10-01] MEDS: enoxaparin 40mg/0.4ml syringe SUBCUT SCH (07:58)
[2021-10-01] MEDS: ascorbic acid 500mg tablet OGT SCH ×3 (07:58→12:36)
[2021-10-01] MEDS: K and/or MAG REPLACEMENT MC SCH (08:00)
[2021-10-01] MEDS: docusate sodium 100mg/10ml UD cup OGT SCH (08:04)
[2021-10-01] MEDS: NORepinephrine 8mg/ 250ml NS 250 ML IV SCH (08:05)
[2021-10-01] MEDS: cefepime 2g/NS 100ml ADVANTAGE 100 ML IV SCH (08:46)
[2021-10-01] MEDS ORDERED: mineral oil/petrolatum ophthal oint EACHEYE PRN (10:00)
--- NOTE | 2021-10-01 10:39 | NUR ---
Sister Hien called for update. Update given.
[2021-10-01] MEDS: acetaminophen 325mg tablet OGT PRN (14:10)
[2021-10-01] MEDS: FENTANYL-0.9 % NACL/PF 100 ML IV PRN (14:21)
[2021-10-01] MEDS: midazolam 100mg in NS 100ml 100 ML IV SCH (14:22)
--- NOTE | 2021-10-01 14:23 | NUR ---
Pt. desatted to 70s. Being bagged per RT. Charge and Dr. Benitez aware. Charge called pt's sister. Awaiting a call back. Will continue to bag pt. until family calls back with their wishes as pt. is not recovering her SP02.
[2021-10-01 14:25] LABS: ABG BASE EXCESS 4.4 mmol/L (-2.0-2.0); ABG HCO3 29.7 mmol/L (22.0-26.0); ABG OXYGEN SATURATION 79.1 % (94-97); ABG PCO2 (T) 51.9 mmHg (32.0-45.0); ABG PO2 (T) 51.4 mmHg (75.0-100.0); ALLEN'S TEST POSITIVE; FCOHb 1.6 % (0.0-3.9); FLOW 15 L/min; FMetHb 0.1 % (0.0-1.5); FO2Hb 77.8 % (94-97); PATIENT TEMPERATURE 39.3; TOTAL HEMOGLOBIN 12.6 G/dl (12.0-16.0)
--- NOTE | 2021-10-01 14:29 | NUR ---
F/u: Pt tolerating TF now at 60ml/hr using Pivot per EMR; RD notified MD of new TF recs given national shortage of Vital High Protein. Unable to meet protein needs but able to meet kcal needs at this time given estimated needs. Updated recs below. Will monitor for TF tolerance. Recommendations: 1) Continuous TF via OGT using Vital High Protein at 65 mL/hr to provide 1560 mL total volume/day, 1560 kcal, 137 g protein, and 1304 mL water; Adjust if Propofol is resumed 2) Additional 150 mL water flush Q4H; monitor serum Na and adjust as appropriate 3) IF out of Vital High Protein sub Pivot 1.5 at 45ml/hr providing 1080ml volume, 1620kcals, 101g protein, 820ml free water. Additional water flush 200ml Q4H 4) Prealbumin q Friday/; daily scaled weights 5) Routine bowel care; previously constipated 15 days 6) DM education once stable following extubation, A1c 6.8% and no PMH of DM in EMR. Pt will need official DM dx by physician prior to RD education Addendum: 10/01/21 at [address] Amended: Links added.
--- NOTE | 2021-10-01 14:53 | NUR ---
Sister Hien to come see pt. and talk with Dr. Benitez. CXR obtained. UA obtained. Phleb. attempted to obtain BC without success. Spo2 remains in the 60s-70s.
--- NOTE | 2021-10-01 15:18 | NUR ---
Sister and two daughters at bedside. Dr. Benitez here. RT remains bagging pt.
--- NOTE | 2021-10-01 15:33 | NUR ---
Pt. extubated to comfort care per family and Dr. Benitez. Family at bedside.
--- NOTE | 2021-10-01 15:40 | NUR ---
Pt. at 1543. Family at bedside.
[2021-10-01 16:10] LABS: CLARITY,URINE CLEAR (Clear); COLOR,URINE YELLOW (Yellow); PH,URINE 7.5 (4.8-8.0); UA COLLECTION TYPE FOLEY CATH
[2021-10-01 16:11] LABS: GLUCOSE, URINE NEGATIVE (Neg); KETONES,URINE NEGATIVE (Neg); LEUKOCYTE ESTERASE ,URINE NEGATIVE (Neg); NITRITES, URINE NEGATIVE (Neg); OCCULT BLOOD,URINE TRACE-INTACT (Neg); PROTEIN,URINE NEGATIVE (Neg); UROBILINOGEN,URINE 0.2 E.U/dL (0.2-1.0)
[2021-10-01 16:13] LABS: BACTERIA,URINE NONE SEEN /HPF (Neg); WBC,URINE NONE SEEN /HPF (0-4)
[2021-10-01 16:14] LABS: SQUAMOUS EPITHELIAL CELL,UR FEW /LPF (FEW)
[2021-10-02] MEDS ORDERED: methylPREDNISolone sod succ/PF 40mg inj. IV SCH (08:00)
== END 2021-10-01 17:44 | DRG 130 ==
LOC: ER 11:33 → ED HOLD 14:36 → ORTHO 4S 17:25 → CICU 2S 09-14 05:28
PROVIDERS: ADMIT Family Medicine; ATTEND Family Medicine
PROC: 5A0935A Assistance with Respiratory Ventilation, Less than 24 Consecutive Hours, High Flow/Velocity Cannula (ICD-10-PCS; 2021-08-30)
PROC: B32T1ZZ Computerized Tomography (CT Scan) of Left Pulmonary Artery using Low Osmolar Contrast (ICD-10-PCS; 2021-08-30)
PROC: B3201ZZ Computerized Tomography (CT Scan) of Thoracic Aorta using Low Osmolar Contrast (ICD-10-PCS; 2021-08-30)
PROC: B32S1ZZ Computerized Tomography (CT Scan) of Right Pulmonary Artery using Low Osmolar Contrast (ICD-10-PCS; 2021-08-30)
PROC: XW033E5 Introduction of Remdesivir Anti-infective into Peripheral Vein, Percutaneous Approach, New Technology Group 5 (ICD-10-PCS; 2021-08-31)
PROC: 5A0935A Assistance with Respiratory Ventilation, Less than 24 Consecutive Hours, High Flow/Velocity Cannula (ICD-10-PCS; 2021-08-31)
PROC: 5A0935A Assistance with Respiratory Ventilation, Less than 24 Consecutive Hours, High Flow/Velocity Cannula (ICD-10-PCS; 2021-09-01)
PROC: 5A0935A Assistance with Respiratory Ventilation, Less than 24 Consecutive Hours, High Flow/Velocity Cannula (ICD-10-PCS; 2021-09-02)
PROC: 5A0935A Assistance with Respiratory Ventilation, Less than 24 Consecutive Hours, High Flow/Velocity Cannula (ICD-10-PCS; 2021-09-03)
PROC: 5A09457 Assistance with Respiratory Ventilation, 24-96 Consecutive Hours, Continuous Positive Airway Pressure (ICD-10-PCS; 2021-09-03)
PROC: XW033H5 Introduction of Tocilizumab into Peripheral Vein, Percutaneous Approach, New Technology Group 5 (ICD-10-PCS; 2021-09-04)
PROC: 5A0935A Assistance with Respiratory Ventilation, Less than 24 Consecutive Hours, High Flow/Velocity Cannula (ICD-10-PCS; 2021-09-06)
PROC: 5A0935A Assistance with Respiratory Ventilation, Less than 24 Consecutive Hours, High Flow/Velocity Cannula (ICD-10-PCS; 2021-09-07)
PROC: 5A09357 Assistance with Respiratory Ventilation, Less than 24 Consecutive Hours, Continuous Positive Airway Pressure (ICD-10-PCS; 2021-09-07)
PROC: 5A0935A Assistance with Respiratory Ventilation, Less than 24 Consecutive Hours, High Flow/Velocity Cannula (ICD-10-PCS; 2021-09-08)
PROC: 5A09457 Assistance with Respiratory Ventilation, 24-96 Consecutive Hours, Continuous Positive Airway Pressure (ICD-10-PCS; 2021-09-08)
PROC: 5A09457 Assistance with Respiratory Ventilation, 24-96 Consecutive Hours, Continuous Positive Airway Pressure (ICD-10-PCS; 2021-09-11)
PROC: 5A1955Z Respiratory Ventilation, Greater than 96 Consecutive Hours (ICD-10-PCS; principal; 2021-09-14)
PROC: 0BH17EZ Insertion of Endotracheal Airway into Trachea, Via Natural or Artificial Opening (ICD-10-PCS; 2021-09-14)
PROC: 02HV33Z Insertion of Infusion Device into Superior Vena Cava, Percutaneous Approach (ICD-10-PCS; 2021-09-27)
PROC: B548ZZA Ultrasonography of Superior Vena Cava, Guidance (ICD-10-PCS; 2021-09-27)
DX: U07.1 COVID-19 (principal); R65.21 Severe sepsis with septic shock; A41.02 Sepsis due to Methicillin resistant Staphylococcus aureus; J12.82 Pneumonia due to coronavirus disease 2019; I21.A1 Myocardial infarction type 2; I95.9 Hypotension, unspecified; J15.212 Pneumonia due to Methicillin resistant Staphylococcus aureus; J96.01 Acute respiratory failure with hypoxia; G89.29 Other chronic pain; K21.9 Gastro-esophageal reflux disease without esophagitis; D64.9 Anemia, unspecified; M54.9 Dorsalgia, unspecified; B95.62 Methicillin resistant Staphylococcus aureus infection as the cause of diseases classified elsewhere; R00.0 Tachycardia, unspecified; R73.9 Hyperglycemia, unspecified; R74.01 Elevation of levels of liver transaminase levels; E66.9 Obesity, unspecified; F40.240 Claustrophobia; F41.0 Panic disorder [episodic paroxysmal anxiety]; Z87.891 Personal history of nicotine dependence; Z90.710 Acquired absence of both cervix and uterus; Z68.37 Body mass index [BMI] 37.0-37.9, adult; Z88.8 Allergy status to other drugs, medicaments and biological substances; Z88.5 Allergy status to narcotic agent; Z79.899 Other long term (current) drug therapy; E87.6 Hypokalemia; Z78.1 Physical restraint status; Z51.5 Encounter for palliative care
CPT/HCPCS: 36415; 36573; 36600; 71045; 71275; 76700; 76937; 80048; 80053; 80202; 81001; 82803; 82948; 83036; 83605; 83615; 83735; 83880; 84100; 84132; 84134; 84145; 84478; 84484; 85007; 85018; 85025; 85027; 85379; 85610; 85730; 86140; 87040; 87070; 87077; 87081; 87186; 92950; 93005; 93306; 93970; 93971; 94002; 94003; 94640; 94660; 94760; 94799; 97110; 97530; 97535; 99285; C9113; G0378; J0131; J0456; J0692; J0696; J1100; J1170; J1650; J1815; J1940; J2060; J2248; J2704; J2920; J3010; J3262; J3370; J3480; J3490; J7030; J7050; J7060; J7120; J7614; J7626; P9045; P9047; Q0177; Q9967